=== PATIENT | female | born 1950 | race Caucasian/White ===

== ENCOUNTER → 2017-07-31 10:54 | Outpatient (CLI) | payer MEDICARE, OTHER, SELFPAY ==
[2017-07-31 11:25] LABS: Basophils % 0.2 % (0.1-2.0); Eosinophils # 0.1 K/mm3 (0.0-0.4); Eosinophils % 1.7 % (0.1-12.0); Hematocrit 43.7 % (37.0-47.0); Hemoglobin 13.7 g/dL (12.2-16.2); Lymphocytes # 1.3 K/mm3 (0.7-4.5); Lymphocytes % 28.4 K/mm3 (10-50); Mean Corpuscular HGB Conc 31.4 g/dL (31.8-35.4); Mean Corpuscular Hemoglobin 30.5 pg (27.0-31.2); Mean Corpuscular Volume 97.2 fl (81-99); Monocytes # 0.3 K/mm3 (0.1-1.0); Monocytes % 6.2 % (1.7-9.3); Neutrophils # 2.9 K/mm3 (1.8-7.8); Neutrophils % 63.5 % (37.0-80.0); Platelet Count 167 K/mm3 (142-424); Red Blood Count 4.49 M/mm3 (4.20-5.40); Red Cell Distribution Width 14.4 % (11.5-17.5); White Blood Count 4.5 K/mm3 (4.8-10.8)
[2017-07-31 11:35] LABS: Alanine Aminotransferase 27 U/L (12-78); Albumin Level 3.7 gm/dL (3.4-5.0); Albumin/Globulin Ratio 0.9 (1.1-1.8); Alkaline Phosphatase 77 U/L (46-116); Anion Gap 11.1 mEq/L (5-15); Aspartate Amino Transferase 22 U/L (15-37); Bilirubin,Total 0.4 mg/dL (0.2-1.0); Blood Urea Nitrogen 28 mg/dL (7-18); Calcium 9.4 mg/dL (8.5-10.1); Carbon Dioxide 28 mmol/L (21.0-32.0); Chloride 107 mmol/L (98-107); Chol/HDL Ratio 2.9 (1-3.5); Cholesterol 155 mg/dL (140-200); Estimated Glomerular Filt Rate 62 ml/min (>60); GFR (African American) 75 ML/MIN (>60); Globulin 4.1 gm/dl (1.3-3.2); Glucose 90 mg/dL (74-106); HDL Cholesterol 53 mg/dL (29-89); LDL Cholesterol 76 mg/dL (0-130); Potassium 5.1 mmoL/L (3.5-5.1); Sodium 141 mmol/L (136-145); Total Protein,Serum 7.8 gm/dL (6.4-8.2); Triglycerides 128 mg/dL (30-200); VLDL Cholesterol 26 mg/dL (0-40)
== END ==
PROVIDERS: Visit Provider Internal Medicine
DX: G35 Multiple sclerosis (principal); I10 Essential (primary) hypertension; E03.9 Hypothyroidism, unspecified
CPT/HCPCS: 36415; 80053; 80061; 85025

== ENCOUNTER 2017-10-09 11:00 | Outpatient (RCR) | payer MEDICARE, OTHER, SELFPAY | END 2017-10-10 11:01 | disposition home or self-care (01) | LOC: PT 11:00 | PROVIDERS: Family Provider Internal Medicine; Visit Provider Psychiatry & Neurology Neurology | DX: R26.9 Unspecified abnormalities of gait and mobility (principal); G35 Multiple sclerosis | CPT/HCPCS: 97110; 97112; 97116; 97164 ==

== ENCOUNTER → 2018-02-03 09:51 | Outpatient (CLI) | payer MEDICARE, OTHER, SELFPAY ==
[2018-02-03 10:29] LABS: Basophils % 0.2 % (0.1-2.0); Eosinophils # 0.1 K/mm3 (0.0-0.4); Hematocrit 45.3 % (37.0-47.0); Hemoglobin 14.2 g/dL (12.2-16.2); Lymphocytes # 1.3 K/mm3 (0.7-4.5); Lymphocytes % 26.7 K/mm3 (10-50); Mean Corpuscular HGB Conc 31.4 g/dL (31.8-35.4); Mean Corpuscular Hemoglobin 30.7 pg (27.0-31.2); Mean Corpuscular Volume 97.7 fl (81-99); Mean Platelet Volume 7.5 fl (7.4-10.4); Monocytes # 0.3 K/mm3 (0.1-1.0); Monocytes % 7.1 % (1.7-9.3); Neutrophils # 3.1 K/mm3 (1.8-7.8); Platelet Count 149 K/mm3 (142-424); Red Blood Count 4.64 M/mm3 (4.20-5.40); Red Cell Distribution Width 14.2 % (11.5-17.5); White Blood Count 4.8 K/mm3 (4.8-10.8)
[2018-02-03 11:42] LABS: Alanine Aminotransferase 45 U/L (12-78); Albumin Level 3.7 gm/dL (3.4-5.0); Albumin/Globulin Ratio 1.1 (1.1-1.8); Alkaline Phosphatase 76 U/L (46-116); Anion Gap 13.7 mEq/L (5-15); Aspartate Amino Transferase 42 U/L (15-37); Bilirubin,Total 0.4 mg/dL (0.2-1.0); Blood Urea Nitrogen 26 mg/dL (7-18); Calcium 9.2 mg/dL (8.5-10.1); Carbon Dioxide 26 mmol/L (21.0-32.0); Chloride 110 mmol/L (98-107); Chol/HDL Ratio 2.7 (1-3.5); Cholesterol 144 mg/dL (140-200); Creatinine,Serum 0.87 mg/dL (0.55-1.02); Estimated Glomerular Filt Rate 65 ml/min (>60); GFR (African American) 78 ML/MIN (>60); Globulin 3.5 gm/dl (1.3-3.2); Glucose 86 mg/dL (74-106); HDL Cholesterol 53 mg/dL (29-89); LDL Cholesterol 66 mg/dL (0-130); Potassium 4.7 mmoL/L (3.5-5.1); Sodium 145 mmol/L (136-145); Thyroid Stimulating Hormone 0.26 uIU/ml (0.358-3.740); Total Protein,Serum 7.2 gm/dL (6.4-8.2); Triglycerides 125 mg/dL (30-200); VLDL Cholesterol 25 mg/dL (0-40)
== END ==
PROVIDERS: PCP Internal Medicine; Visit Provider Internal Medicine
DX: I10 Essential (primary) hypertension (principal); E78.5 Hyperlipidemia, unspecified; D69.6 Thrombocytopenia, unspecified; E03.9 Hypothyroidism, unspecified
CPT/HCPCS: 36415; 80053; 80061; 84443; 85025

== ENCOUNTER → 2018-05-12 10:25 | Outpatient (CLI) | payer MEDICARE, OTHER, SELFPAY ==
[2018-05-12 12:58] LABS: Thyroid Stimulating Hormone 4.09 uIU/ml (0.358-3.740)
== END ==
PROVIDERS: Visit Provider Internal Medicine
DX: E03.9 Hypothyroidism, unspecified (principal)
CPT/HCPCS: 36415; 84443

== ENCOUNTER → 2018-08-01 11:03 | Outpatient (CLI) | payer MEDICARE, BC, SELFPAY ==
[2018-08-01 11:32] LABS: Basophils % 0.2 % (0.1-2.0); Eosinophils # 0.1 K/mm3 (0.0-0.4); Eosinophils % 0.7 % (0.1-12.0); Hematocrit 44.1 % (37.0-47.0); Hemoglobin 14.2 g/dL (12.2-16.2); Lymphocytes # 0.7 K/mm3 (0.7-4.5); Lymphocytes % 8.6 % (10-50); Mean Corpuscular HGB Conc 32.3 g/dL (31.8-35.4); Mean Corpuscular Hemoglobin 31.9 pg (27.0-31.2); Mean Corpuscular Volume 98.9 fl (81-99); Monocytes # 0.4 K/mm3 (0.1-1.0); Monocytes % 4.8 % (1.7-9.3); Neutrophils # 6.7 K/mm3 (1.8-7.8); Neutrophils % 85.8 % (37.0-80.0); Platelet Count 137 K/mm3 (142-424); Red Blood Count 4.46 M/mm3 (4.20-5.40); White Blood Count 7.8 K/mm3 (4.8-10.8)
[2018-08-01 11:36] LABS: MANUAL DIFFERENTIAL MANUAL DIFFERENTIAL (MANUAL DIFF)
[2018-08-01 12:03] LABS: Alanine Aminotransferase 28 U/L (12-78); Albumin Level 3.7 gm/dL (3.4-5.0); Alkaline Phosphatase 67 U/L (46-116); Aspartate Amino Transferase 33 U/L (15-37); Bilirubin,Total 0.4 mg/dL (0.2-1.0); Blood Urea Nitrogen 28 mg/dL (7-18); Calcium 9.1 mg/dL (8.5-10.1); Carbon Dioxide 26 mmol/L (21.0-32.0); Chloride 107 mmol/L (98-107); Creatinine,Serum 0.91 mg/dL (0.55-1.02); Estimated Glomerular Filt Rate 61 ml/min (>60); GFR (African American) 74 ML/MIN (>60); Globulin 3.6 gm/dl (1.3-3.2); Glucose 57 mg/dL (74-106); Sodium 143 mmol/L (136-145); Total Protein,Serum 7.3 gm/dL (6.4-8.2)
[2018-08-01 14:06] LABS: Lymphocytes % 11 % (10-50); Monocytes % 6 % (2-9); Neutrophils % 80 % (42-76); RBC Morphology Normal; Total Cells Counted 100
[2018-08-01 14:08] LABS: Platelet Estimate Normal
== END ==
PROVIDERS: Visit Provider Psychiatry & Neurology Neurology
DX: G35 Multiple sclerosis (principal)
CPT/HCPCS: 36415; 80053; 85007; 85025

== ENCOUNTER → 2018-08-04 08:31 | Outpatient (CLI) | payer MEDICARE, BC, SELFPAY ==
--- NOTE | 2018-08-04 08:36 | MR_ITS ---
MR head/brain wo/w con HISTORY: Multiple sclerosis, increase in falling ITS.REASON: MULTIPLE SCLEROSIS ORDERING PHYSICIAN: Ritika White PATIENT AGE: 68 years Comparison: 02/18/2017 TECHNIQUE: Standard multiplanar multiecho sequences are performed without and with gadolinium enhancement. 15 mL of ProHance given IV. FINDINGS: No midline shift, mass effect, intracranial hemorrhage, or hydrocephalus is evident. No enhancing lesions are evident. There is diffuse atrophy. There is diffuse periventricular and subcortical T2 white matter hyperintensity noted. The patient gives a history of multiple sclerosis. Some of these lesions are oriented perpendicular to the long axis of the lateral ventricles and could represent Dawsons fingers. There are no previous MRIs available for comparison. None of these areas demonstrate any contrast enhancement. There is no evidence of involvement of the corpus callosum, midbrain or brainstem. There is some increased diffusion signal in the left long radiata posteriorly with mixed signal intensity on the ADC images some showing some slight increased ADC signal and at least one area showing isointense ADC signal. The cerebellopontine angle, cerebellum, and brainstem are unremarkable. The pituitary, optic chiasm, and upper cervical cord have an unremarkable appearance. No mastoid effusion or sinus air-fluid level is evident. IMPRESSION: 1. There is diffuse periventricular and subcortical T2 white matter hyperintensities which is a nonspecific finding and could be related to diffuse periventricular ischemic gliotic change from microvascular disease or could also be related to white matter changes from a multiple sclerosis or a combination there of. There are few lesions that could be due to Dawsons fingers. No corpus callosum abnormalities. 2. There are some nonspecific areas in the periventricular white matter on the left of slight increased diffusion signal without enhancement isointense to slightly hyperintense on the ADC images and may be due to subacute ischemic changes.. 3. No enhancing lesions
== END ==
PROVIDERS: PCP Internal Medicine; Visit Provider Psychiatry & Neurology Neurology
DX: G35 Multiple sclerosis (principal)
CPT/HCPCS: 70553; A9576

== ENCOUNTER → 2018-08-08 09:37 | Outpatient (CLI) | payer MEDICARE, BC, SELFPAY ==
[2018-08-08 10:14] LABS: Basophils % 0.4 % (0.1-2.0); Eosinophils # 0.1 K/mm3 (0.0-0.4); Eosinophils % 1.2 % (0.1-12.0); Hematocrit 40.5 % (37.0-47.0); Hemoglobin 13.2 g/dL (12.2-16.2); Lymphocytes # 1.1 K/mm3 (0.7-4.5); Lymphocytes % 25.5 % (10-50); Mean Corpuscular HGB Conc 32.7 g/dL (31.8-35.4); Mean Corpuscular Hemoglobin 32.1 pg (27.0-31.2); Mean Corpuscular Volume 98.2 fl (81-99); Mean Platelet Volume 7.7 fl (7.4-10.4); Monocytes # 0.3 K/mm3 (0.1-1.0); Monocytes % 6.6 % (1.7-9.3); Neutrophils # 2.8 K/mm3 (1.8-7.8); Neutrophils % 66.3 % (37.0-80.0); Platelet Count 139 K/mm3 (142-424); Red Blood Count 4.12 M/mm3 (4.20-5.40); White Blood Count 4.3 K/mm3 (4.8-10.8)
[2018-08-08 12:49] LABS: Alanine Aminotransferase 25 U/L (12-78); Albumin Level 3.6 gm/dL (3.4-5.0); Albumin/Globulin Ratio 1.1 (1.1-1.8); Alkaline Phosphatase 60 U/L (46-116); Anion Gap 15.1 mEq/L (5-15); Aspartate Amino Transferase 23 U/L (15-37); Bilirubin,Total 0.5 mg/dL (0.2-1.0); Blood Urea Nitrogen 27 mg/dL (7-18); Carbon Dioxide 25 mmol/L (21.0-32.0); Chloride 108 mmol/L (98-107); Chol/HDL Ratio 2.7 (1-3.5); Cholesterol 145 mg/dL (140-200); Estimated Glomerular Filt Rate 62 ml/min (>60); GFR (African American) 75 ML/MIN (>60); Globulin 3.2 gm/dl (1.3-3.2); Glucose 77 mg/dL (74-106); HDL Cholesterol 53 mg/dL (29-89); LDL Cholesterol 70 mg/dL (0-130); Potassium 4.1 mmoL/L (3.5-5.1); Sodium 144 mmol/L (136-145); Thyroid Stimulating Hormone 4.07 uIU/ml (0.358-3.740); Total Protein,Serum 6.8 gm/dL (6.4-8.2); Triglycerides 110 mg/dL (30-200); VLDL Cholesterol 22 mg/dL (0-40)
== END ==
PROVIDERS: Visit Provider Internal Medicine
DX: E03.9 Hypothyroidism, unspecified (principal); I95.1 Orthostatic hypotension; I10 Essential (primary) hypertension; G35 Multiple sclerosis
CPT/HCPCS: 36415; 80053; 80061; 84443; 85025

== ENCOUNTER → 2018-11-07 10:50 | Outpatient (CLI) | payer MEDICARE, BC, SELFPAY ==
[2018-11-07 19:40] LABS: Thyroid Stimulating Hormone 0.41 uIU/ml (0.358-3.740)
== END ==
PROVIDERS: Visit Provider Internal Medicine
DX: E03.9 Hypothyroidism, unspecified (principal); I10 Essential (primary) hypertension
CPT/HCPCS: 36415; 84443

== ENCOUNTER 2019-01-21 10:00 | Outpatient (RCR) | payer MEDICARE, BC, SELFPAY | END 2019-01-21 10:05 | disposition home or self-care (01) | LOC: PT 10:00 | PROVIDERS: Visit Provider Internal Medicine | DX: M62.81 Muscle weakness (generalized) (principal); M25.561 Pain in right knee | CPT/HCPCS: 97110; 97112; 97163; 97164 ==

== ENCOUNTER → 2019-02-06 09:31 | Outpatient (CLI) | payer MEDICARE, BC, SELFPAY ==
[2019-02-06 10:02] LABS: Basophils % 0.3 % (0.1-2.0); Eosinophils # 0.1 K/mm3 (0.0-0.4); Eosinophils % 1.1 % (0.1-12.0); Hematocrit 44.2 % (37.0-47.0); Hemoglobin 12.9 g/dL (12.2-16.2); Lymphocytes # 1.2 K/mm3 (0.7-4.5); Lymphocytes % 30.1 % (10-50); Mean Corpuscular HGB Conc 29.1 g/dL (31.8-35.4); Mean Corpuscular Volume 99.7 fl (81-99); Mean Platelet Volume 8.4 fl (7.4-10.4); Monocytes # 0.3 K/mm3 (0.1-1.0); Monocytes % 8.1 % (1.7-9.3); Neutrophils # 2.4 K/mm3 (1.8-7.8); Neutrophils % 60.4 % (37.0-80.0); Platelet Count 164 K/mm3 (142-424); Red Blood Count 4.43 M/mm3 (4.20-5.40)
[2019-02-06 11:50] LABS: Alanine Aminotransferase 18 U/L (12-78); Albumin Level 3.6 gm/dL (3.4-5.0); Albumin/Globulin Ratio 1.1 (1.1-1.8); Alkaline Phosphatase 77 U/L (46-116); Anion Gap 13.4 mEq/L (5-15); Aspartate Amino Transferase 20 U/L (15-37); Bilirubin,Total 0.4 mg/dL (0.2-1.0); Blood Urea Nitrogen 26 mg/dL (7-18); Calcium 9.3 mg/dL (8.5-10.1); Carbon Dioxide 26 mmol/L (21.0-32.0); Chloride 108 mmol/L (98-107); Creatinine,Serum 0.77 mg/dL (0.55-1.02); Estimated Glomerular Filt Rate 74 ml/min (>60); GFR (African American) 90 ML/MIN (>60); Globulin 3.4 gm/dl (1.3-3.2); Glucose 80 mg/dL (74-106); Potassium 4.4 mmoL/L (3.5-5.1); Sodium 143 mmol/L (136-145); Thyroid Stimulating Hormone 0.16 uIU/ml (0.358-3.740)
== END ==
PROVIDERS: Visit Provider Internal Medicine
DX: I10 Essential (primary) hypertension (principal); E78.5 Hyperlipidemia, unspecified; G35 Multiple sclerosis
CPT/HCPCS: 36415; 80053; 84443; 85025

== ENCOUNTER 2019-05-09 15:59 | Observation (INO) ==
[2019-05-09 16:44] LABS: Basophils % 0.4 % (0.1-2.0); Eosinophils # 0.2 K/mm3 (0.0-0.4); Eosinophils % 2.4 % (0.1-12.0); Hematocrit 41.9 % (37.0-47.0); Hemoglobin 12.9 g/dL (12.2-16.2); Lymphocytes # 1.9 K/mm3 (0.7-4.5); Lymphocytes % 20.7 % (10-50); Mean Corpuscular HGB Conc 30.7 g/dL (31.8-35.4); Mean Corpuscular Volume 98.2 fl (81-99); Mean Platelet Volume 8.8 fl (7.4-10.4); Monocytes # 0.6 K/mm3 (0.1-1.0); Neutrophils # 6.5 K/mm3 (1.8-7.8); Neutrophils % 70.4 % (37.0-80.0); Platelet Count 184 K/mm3 (142-424); Red Blood Count 4.26 M/mm3 (4.20-5.40); Red Cell Distribution Width 15.3 % (11.5-17.5); White Blood Count 9.2 K/mm3 (4.8-10.8)
[2019-05-09 17:01] LABS: Albumin Level 3.2 gm/dL (3.4-5.0); Albumin/Globulin Ratio 0.9 (1.1-1.8); Anion Gap 12.8 mEq/L (5-15); Bilirubin,Total 0.4 mg/dL (0.2-1.0); Calcium 8.4 mg/dL (8.5-10.1); Globulin 3.7 gm/dl (1.3-3.2); Total Protein,Serum 6.9 gm/dL (6.4-8.2)
--- NOTE | 2019-05-09 17:06 | Emergency Department Note ---
ED Disposition Clinical Impression: Congestive heart failure Disposition: Xfer Short-Term Hosp Condition on Discharge: Serious - Critical Care Critical Care Time: No Attestation: On 05/09/19, the high probability of a clinically significant, sudden or life threatening deterioration of the following system(s) required my full and direct attention, intervention and personal management. The time I documented below is in addition to time spent performing reported procedures but includes the following listed in this critical care notation. Medical Decision Making - Medical Records Medical records reviewed: Yes: I reviewed the patient's medical records. - Emmanuel Inquiry Pt receiving controlled substance: No Vital Signs: 05/09/19 16:22 05/09/19 16:32 Temperature 98.7 F Temperature Source Oral Pulse Rate [Right Brachial] 84 87 Respiratory Rate 19 Blood Pressure [Right Arm] 113/47 L 158/94 H Blood Pressure Mean [Right Arm] 69 115 Blood Pressure Source [Right Arm] Automatic Cuff Automatic Cuff Blood Pressure Position [Right Arm] Sitting Sitting 02 Sat by Pulse Oximetry 96 94 L Oxygen Delivery Method Room Air - Lab Data Lab results reviewed: Yes: I reviewed the patient's lab results. Lab Results 05/09/19 16:33: WBC 9.2, RBC 4.26, Hgb 12.9, Hct 41.9, MCV 98.2, MCH 30.2, MCHC 30.7 L, RDW 15.3, Plt Count 184, MPV 8.8, Neut % (Auto) 70.4, Lymph % (Auto) 20.7, [place] % (Auto) 6.0, Eos % (Auto) 2.4, Baso % (Auto) 0.4, Neut # (Auto) 6.5, Lymph # (Auto) 1.9, [place] # (Auto) 0.6, Eos # (Auto) 0.2, Baso # (Auto) 0.0 05/09/19 16:33: Sodium 144, Potassium 3.8, Chloride 109 H, Carbon Dioxide 26, Anion Gap 12.8, BUN 27 H, Creatinine 0.94, Estimated Creat Clear 63, Estimated GFR 59, Est GFR ( Amer) 71, Glucose 109 H, Calcium 8.4 L, Total Bilirubin 0.4, AST 29, ALT 28, Alkaline Phosphatase 81, Troponin I 0.25 H, Total Protein 6.9, Albumin 3.2 L, Globulin 3.7 H, Albumin/Globulin Ratio 0.9 L 05/09/19 16:33: Lactate 0.9 05/09/19 16:33: B-Natriuretic Peptide 1350 H Result diagrams: 05/09/19 16:33 05/09/19 16:33 Orders (Tests/Meds): ED MEDICATIONS Discontinued Medications Generic Name Dose Route Start Last Admin Trade Name Maurisio PRN Reason Stop Dose Admin Aspirin 324 mg 05/09/19 17:05 05/09/19 17:23 Aspirin 81mg Chewable Tablet PO 05/09/19 17:06 324 mg ONCE ONE Administration Furosemide 40 mg 05/09/19 17:32 05/09/19 17:34 Lasix 40mg/4ml Vial IV 05/09/19 17:33 40 mg ONCE ONE Administration ORDERS Category Date Time Status XR chest 2V Stat Exams 05/09/19 16:32 Taken T4 (Thyroxine) Stat Lab 05/09/19 16:44 Ordered Thyroid Stimulating Hormone Stat Lab 05/09/19 16:44 Ordered Troponin I Q3H Lab 05/09/19 19:45 Ordered Troponin I Q3H Lab 05/09/19 22:45 Ordered Blood Culture Stat Micro 05/09/19 16:33 Received - Radiology Data #1 Image(s): Chest Image Reviewed: Yes I reviewed the patient's radiology image Preliminary Findings: Abnormal (Increased lung markings probable mild pulmonary edema.) - ECG Data Tracing #1 I reviewed this ECG and interpreted as documented below: Normal sinus rhythm with sinus arrhythmia and a ventricular rate of 77 bpm. ECG initial impression date: 05/09/19 ECG initial impression time: 16:30 Normal Sinus Rhythm: Yes - Physician Consults Physician Consulted: Dr. Duque for cardiology, Dr. Smith for admission. Time: 17:30 Reason -: Admission, Pt condition Comment/Response: Mildly elevated troponin and elevated beta natruretic peptide reported to Dr. Duque and Dr. Singh. Patient will be admitted for congestive heart failure. General Adult HPI - General Chief complaint: Shortness of Breath/Dyspnea Stated complaint: SOB Time Seen by Provider: 05/09/19 16:25 Mode of Arrival: Family Vehicle Source of Information: Patient Limitations: No Limitations Description of Symptoms (Recalled from ER Triage Doc. by RN): soa with exertion, soa with laying down - History of Present Illness HPI narrative: 68-year old female presents to the emergency department with fatigue and shortness of breath for the past 3 days worse over the past 24 hours. Onset (ago): day(s) (3) Severity: moderate Consistency: constant Relieving factors: none Exacerbating factors: none Associated symptoms: malaise, weakness Treatments prior to arrival: none - Related Data Home Medications Medication Instructions Recorded Confirmed Acetaminophen/Diphenhydramine 1 each PO HS 05/09/19 05/09/19 [Tylenol Pm Ex-Strength Caplet] Aspirin [Aspirin 81mg EC Tab] 81 mg PO DAILY 05/09/19 05/09/19 Atorvastatin Calcium [Atorvastatin 20 mg PO DAILY 05/09/19 05/09/19 20mg Tab] Cyanocobalamin (Vitamin B-12) 1,000 mcg PO DAILY 05/09/19 05/09/19 [Vitamin B-12] Gabapentin 600 mg PO BID 05/09/19 05/09/19 Levothyroxine Sodium [Synthroid 50 mcg PO DAILY 05/09/19 05/09/19 50mcg (0.05mg) tab] Metoprolol Tartrate [Lopressor 12.5 mg PO BID 05/09/19 05/09/19 25mg tablet] Potassium Chloride 20 meq PO DAILY 05/09/19 05/09/19 Sertraline HCl [Zoloft 100mg 100 mg PO DAILY 05/09/19 05/09/19 tablet] Spironolactone [Spironolactone 25 mg PO DIRECTED 05/09/19 05/09/19 25mg Tablet] diphenhydrAMINE HCL [Benadryl 25mg 25 mg PO DAILY 05/09/19 05/09/19 Capsule] Allergies Allergy/AdvReac Type Severity Reaction Status Date / Time No Known Allergies Allergy Unverified 04/30/17 14:39 [facility] History - Hepatitis A Screen Drug use history?: No High risk sexual behaviors?: No History of sexually transmitted infection?: No Currently employed?: No Childcare worker?: No Do you have indoor plumbing?: Yes Do you have electricity?: Yes Attestation statement:: This patient has been screened for Hepatitis A risk factors. I have reviewed the patient's past medical history: Yes ROS Obtained: Yes Systems reviewed as appropriate & no additional complaints - Constitutional Constitutional: Reports malaise, Reports weakness - Eyes Eyes: Reports system reviewed and no additional complaints, except as docu - ENT Ears, Nose, Mouth, and Throat: Reports system reviewed and no additional complaints, except as docu - Cardiovascular Cardiovascular: Reports dyspnea, Reports shortness of breath when lying down - Respiratory Respiratory: Yes dyspnea - Gastrointestinal Gastrointestingal: Reports: system reviewed and no additional complaints, except as docu - Genitourinary Female Genitourinary: Reports system reviewed and no additional complaints, except as docu - Musculoskeletal Musculoskeletal: Reports system reviewed and no additional complaints, except as docu - Integumentary/Breasts Skin/Breast: Reports system reviewed and no additional complaints, except as docu - Neurologic Neurologic: Reports system reviewed and no additional complaints, except as docu - Endocrine Endocrine: Reports system reviewed and no additional complaints, except as docu - Hematologic/Lymphatic Henatologic/Lymphatic: Reports system reviewed and no additional complaints, except as docu - Allergic/Immunologic Allergic/Immunologic: Reports system reviewed and no additional complaints, except as docu Physical Exam - General General appearance: alert, in no apparent distress - Head Head exam: atraumatic, normocephalic, normal inspection - Eye Eye exam: Present: normal appearance, PERRL, EOMI - ENT ENT exam: Present: normal exam, normal oropharynx, mucous membranes moist, johny l external ear exam - Neck Neck exam: Present: normal inspection, full ROM, trachea midline. Absent: meningismus, lymphadenopathy - Chest Chest inspection: Present: normal inspection, symmetric chest wall rise. Absent: tenderness - Respiratory Respiratory exam: Present: normal lung sounds bilaterally. Absent: respiratory distress - Cardiovascular Cardiovascular exam: Present: regular rate, normal rhythm. Absent: JVD - Abdominal Exam Abdominal exam: Present: soft, normal bowel sounds. Absent: distention, tenderness, guarding - Extremities Exam Extremities exam: Present: normal inspection, full ROM, normal capillary refill. Absent: calf tenderness - Back Exam Back exam: Present: normal inspection. Absent: tenderness - Neurological Exam Neurological exam: Present: alert, oriented X3, CN II-XII intact, normal gait. Absent: motor sensory deficit - Psychiatric Psychiatric exam: Present: normal affect, normal mood - Skin Skin exam: Present: warm, dry, intact, normal color
[2019-05-09 18:06] LABS: Thyroid Stimulating Hormone 5.81 uIU/ml (0.358-3.740)
[2019-05-10 07:03] LABS: Basophils % 0.3 % (0.1-2.0); Eosinophils # 0.2 K/mm3 (0.0-0.4); Eosinophils % 2.2 % (0.1-12.0); Hematocrit 39.8 % (37.0-47.0); Hemoglobin 12.4 g/dL (12.2-16.2); Lymphocytes # 1.6 K/mm3 (0.7-4.5); Lymphocytes % 20.6 % (10-50); Mean Corpuscular HGB Conc 31.3 g/dL (31.8-35.4); Mean Corpuscular Volume 96.2 fl (81-99); Mean Platelet Volume 8.4 fl (7.4-10.4); Monocytes # 0.5 K/mm3 (0.1-1.0); Monocytes % 6.3 % (1.7-9.3); Neutrophils # 5.4 K/mm3 (1.8-7.8); Neutrophils % 70.5 % (37.0-80.0); Platelet Count 179 K/mm3 (142-424); Red Blood Count 4.14 M/mm3 (4.20-5.40); Red Cell Distribution Width 15.2 % (11.5-17.5); White Blood Count 7.7 K/mm3 (4.8-10.8)
[2019-05-10 07:16] LABS: INR 1.06 (0.9-1.1)
[2019-05-10 07:20] LABS: Albumin Level 3.2 gm/dL (3.4-5.0); Albumin/Globulin Ratio 0.9 (1.1-1.8); Anion Gap 13.2 mEq/L (5-15); Bilirubin,Total 0.7 mg/dL (0.2-1.0); Calcium 8.8 mg/dL (8.5-10.1); Chol/HDL Ratio 2.7 (1-3.5); Globulin 3.5 gm/dl (1.3-3.2); Phosphorous 3.7 mg/dL (2.4-4.9); Total Protein,Serum 6.7 gm/dL (6.4-8.2)
--- NOTE | 2019-05-10 11:25 | Pharmacy Consult Notes ---
[facility] Pharmacy VTE Monitoring - Patient Demographics Admission date: 05/09/19 Report Date: 05/10/19 Time: 11:25 Allergies/Adverse Reactions: Patient Allergies No Known Allergies Allergy (Unverified 04/30/17 14:39) Height: 1.6 m Weight: 69.626 kg Patient Problems: Current Active Problems Congestive heart failure (Acute) - VTE Risk Labs: VTE Related Lab Results Hgb 12.4 g/dL (12.2-16.2) 05/10/19 06:50 Hct 39.8 % (37.0-47.0) 05/10/19 06:50 Plt Count 179 K/mm3 (142-424) 05/10/19 06:50 PT 11.0 seconds (9.4-11.8) 05/10/19 06:50 INR 1.06 (0.9-1.1) 05/10/19 06:50 BUN 23 mg/dL (7-18) H 05/10/19 06:50 Creatinine 0.88 mg/dL (0.55-1.02) 05/10/19 06:50 Estimated Creat Clear 58 mL/min (50-200) 05/10/19 06:50 Was VTE Risk Assessment Performed: Yes VTE Score: 1 VTE Risk Level: Very Low Risk - Prophylaxis VTE Prophylaxis Ordered?: Yes Types of VTE Prophylaxis: TEDS Knee High Location of Applied Device: Bilateral Lower Extremeties - VTE Diagnosis Confirmed Treatment or plan recommended: Continue Current Treatment
--- NOTE | 2019-05-10 11:48 | H&P/Discharge Summary ---
General - General Admission date:: 05/09/19 Discharge date: 05/10/19 *Admission Date: 05/09/19 *Chief complaint: Shortness of breath *History of present illness: Ms. Regan is a 68-year-old female who presented to the ER due to 3 days of worsening shortness of breath. Denies any fevers, nausea, vomiting, chest pain. Stated she was more short of breath and dyspneic with exertion, as well as reported symptoms of orthopnea.. Had a nonproductive cough. Was concerned she might have a pneumonia or heart problem. On presentation to the ER work-up was significant for elevated BNP, EKG with no ST elevation or conduction abnormalities, slight elevation in troponin that was trended and found stable overnight, finding of edema on exam, and chest x-ray with pulmonary vascular congestion and cephalization. She was admitted for management of CHF exacerbation and diuresis. Had good response with initial dose of diuretic and by the time I saw her this morning stated she was feeling significantly better than on presentation. On interview this morning she was pleasant and feeling well enough to go home as she was requesting to go home. Family at bedside on interview this morning. [facility] History I have reviewed the patient's past medical history: Yes Medical History: Denies:: Cancer, Diabetes Mellitus Type 1, Diabetes Mellitus Type 2, MRSA *Have you ever received a pneumonia vaccine?: Yes *Have you received a flu vaccine this season?: Yes Amputation: No Fractures: No - *Social History Educational Level: Attended College Smoking Status: Former smoker #Yrs smoked (if former smoker): 30 Smoking End Date: 2013 Alcohol Intake: never *Occupational Status:: retired Housing: house Household Members: spouse *Travel in the last 8 weeks: None Family Hx:: Unable to obtain Review of Systems - Review of Systems Review of systems:: pertinent systems reviewed and negative unless documented below - *Neurologic Reports weakness Exam Vital signs and Labs for Last 24 Hours: Temp Pulse Resp BP Pulse Ox 98.2 F 64 17 127/90 93 L 05/10/19 08:00 05/10/19 08:00 05/10/19 08:00 05/10/19 08:00 05/10/19 08:00 Laboratory Results - last 24 hr 05/09/19 16:33: WBC 9.2, RBC 4.26, Hgb 12.9, Hct 41.9, MCV 98.2, MCH 30.2, MCHC 30.7 L, RDW 15.3, Plt Count 184, MPV 8.8, Neut % (Auto) 70.4, Lymph % (Auto) 20.7, [place] % (Auto) 6.0, Eos % (Auto) 2.4, Baso % (Auto) 0.4, Neut # (Auto) 6.5, Lymph # (Auto) 1.9, [place] # (Auto) 0.6, Eos # (Auto) 0.2, Baso # (Auto) 0.0 05/09/19 16:33: Sodium 144, Potassium 3.8, Chloride 109 H, Carbon Dioxide 26, Anion Gap 12.8, BUN 27 H, Creatinine 0.94, Estimated Creat Clear 63, Estimated GFR 59, Est GFR ( Amer) 71, Glucose 109 H, Calcium 8.4 L, Total Bilirubin 0.4, AST 29, ALT 28, Alkaline Phosphatase 81, Troponin I 0.25 H, Total Protein 6.9, Albumin 3.2 L, Globulin 3.7 H, Albumin/Globulin Ratio 0.9 L 05/09/19 16:33: Lactate 0.9 05/09/19 16:33: B-Natriuretic Peptide 1350 H 05/09/19 16:33: TSH 5.81 H D, Thyroxine (T4) 9.0 05/09/19 20:45: Troponin I 0.40 H 05/10/19 03:20: Troponin I 0.23 H 05/10/19 06:50: WBC 7.7, RBC 4.14 L, Hgb 12.4, Hct 39.8, MCV 96.2, MCH 30.1, MCHC 31.3 L, RDW 15.2, Plt Count 179, MPV 8.4, Neut % (Auto) 70.5, Lymph % (Auto) 20.6, [place] % (Auto) 6.3, Eos % (Auto) 2.2, Baso % (Auto) 0.3, Neut # ( Auto) 5.4, Lymph # (Auto) 1.6, [place] # (Auto) 0.5, Eos # (Auto) 0.2, Baso # (Auto) 0.0 05/10/19 06:50: PT 11.0, INR 1.06 05/10/19 06:50: Sodium 144, Potassium 3.2 L, Chloride 107, Carbon Dioxide 27, Anion Gap 13.2, BUN 23 H, Creatinine 0.88, Estimated Creat Clear 58, Estimated GFR 64, Est GFR ( Amer) 77, Glucose 80 D, Calcium 8.8, Phosphorus 3.7, Magnesium 1.7, Total Bilirubin 0.7, AST 24, ALT 25, Alkaline Phosphatase 77, Total Protein 6.7, Albumin 3.2 L, Globulin 3.5 H, Albumin/Globulin Ratio 0.9 L, Triglycerides 110, Cholesterol 126 L, LDL Cholesterol 57, VLDL Cholesterol 22, HDL Cholesterol 47, Cholesterol/HDL Ratio 2.7 I & O for Last 24 hours: Intake & Output 05/07/19 05/08/19 05/09/19 05/10/19 23:59 23:59 23:59 23:59 Output Total 300 / 300 Balance -300 / -300 Weight 69.088 kg 69.626 kg - Constitutional no acute distress, average body habitus - *Routine HEENT Exam Head: Present: normocephalic Eye: Present: EOMI, PERRL ENT: Present: mucous membranes moist - *Routine Neck Exam Present: supple. Absent: lymphadenopathy - *Routine Respiratory Exam Present: crackles (Fine crackles posterior lung base more prominent on the left than the right. No rhonchi or wheeze) Comments: Good air movement bilaterally, your lung welsh clear - *Routine Cardiovascular Exam Present: RRR - *Routine Abdominal Exam Present: soft, normoactive bowel sounds. Absent: tenderness - *Routine Extremities Exam Present: edema (Trace). Absent: cyanosis, clubbing - *Routine Skin Exam Present: warm. Absent: rash - *Routine Neurological Exam Present: alert, oriented X3 Hospital Course Hospital Course: Monitor overnight on telemetry. Trend troponins with improvement throughout diuresis. Stable telemetry. Normal EKG. Significant improvement with diu resis. Responded well to treatment for CHF exacerbation. Increase patient's spironolactone to half tablet daily and instructed her to follow-up with her primary care doctor this week for further management and adjustment of medications. Additionally recommended she follow-up with cardiology in the next 2 weeks for further assessment and management. Medically stable for discharge home. Tolerating p.o. intake after initiation of diet this morning. Patient stated being comfortable with the plan of discharge home on increased diuresis with spironolactone. No acute needs at this time. Results Labs on day of discharge: Labs from last 24 hours 05/10/19 05/10/19 05/10/19 06:50 06:50 06:50 WBC 7.7 RBC 4.14 L Hgb 12.4 Hct 39.8 MCV 96.2 MCH 30.1 MCHC 31.3 L RDW 15.2 Plt Count 179 MPV 8.4 Neut % (Auto) 70.5 Lymph % (Auto) 20.6 [place] % (Auto) 6.3 Eos % (Auto) 2.2 Baso % (Auto) 0.3 Neut # (Auto) 5.4 Lymph # (Auto) 1.6 [place] # (Auto) 0.5 Eos # (Auto) 0.2 Baso # (Auto) 0.0 PT 11.0 INR 1.06 Sodium 144 Potassium 3.2 L Chloride 107 Carbon Dioxide 27 Anion Gap 13.2 BUN 23 H Creatinine 0.88 Estimated Creat Clear 58 Estimated GFR 64 Est GFR ( Amer) 77 Glucose 80 D Lactate Calcium 8.8 Phosphorus 3.7 Magnesium 1.7 Total Bilirubin 0.7 AST 24 ALT 25 Alkaline Phosphatase 77 Troponin I B-Natriuretic Peptide Total Protein 6.7 Albumin 3.2 L Globulin 3.5 H Albumin/Globulin Ratio 0.9 L Triglycerides 110 Cholesterol 126 L LDL Cholesterol 57 VLDL Cholesterol 22 HDL Cholesterol 47 Cholesterol/HDL Ratio 2.7 TSH Thyroxine (T4) 05/10/19 05/09/19 05/09/19 03:20 20:45 16:33 WBC RBC Hgb Hct MCV MCH MCHC RDW Plt Count MPV Neut % (Auto) Lymph % (Auto) [place] % (Auto) Eos % (Auto) Baso % (Auto) Neut # (Auto) Lymph # (Auto) [place] # (Auto) Eos # (Auto) Baso # (Auto) PT INR Sodium Potassium Chloride Carbon Dioxide Anion Gap BUN Creatinine Estimated Creat Clear Estimated GFR Est GFR ( Amer) Glucose Lactate Calcium Phosphorus Magnesium Total Bilirubin AST ALT Alkaline Phosphatase Troponin I 0.23 H 0.40 H B-Natriuretic Peptide Total Protein Albumin Globulin Albumin/Globulin Ratio Triglycerides Cholesterol LDL Cholesterol VLDL Cholesterol HDL Cholesterol Cholesterol/HDL Ratio TSH 5.81 H D Thyroxine (T4) 9.0 1205/09/19 05/09/19 16:33 16:33 16:33 WBC RBC Hgb Hct MCV MCH MCHC RDW Plt Count MPV Neut % (Auto) Lymph % (Auto) [place] % (Auto) Eos % (Auto) Baso % (Auto) Neut # (Auto) Lymph # (Auto) [place] # (Auto) Eos # (Auto) Baso # (Auto) PT INR Sodium 144 Potassium 3.8 Chloride 109 H Carbon Dioxide 26 Anion Gap 12.8 BUN 27 H Creatinine 0.94 Estimated Creat Clear 63 Estimated GFR 59 Est GFR ( Amer) 71 Glucose 109 H Lactate 0.9 Calcium 8.4 L Phosphorus Magnesium Total Bilirubin 0.4 AST 29 ALT 28 Alkaline Phosphatase 81 Troponin I 0.25 H B-Natriuretic Peptide 1350 H Total Protein 6.9 Albumin 3.2 L Globulin 3.7 H Albumin/Globulin Ratio 0.9 L Triglycerides Cholesterol LDL Cholesterol VLDL Cholesterol HDL Cholesterol Cholesterol/HDL Ratio TSH Thyroxine (T4) 05/09/19 16:33 WBC 9.2 RBC 4.26 Hgb 12.9 Hct 41.9 MCV 98.2 MCH 30.2 MCHC 30.7 L RDW 15.3 Plt Count 184 MPV 8.8 Neut % (Auto) 70.4 Lymph % (Auto) 20.7 [place] % (Auto) 6.0 Eos % (Auto) 2.4 Baso % (Auto) 0.4 Neut # (Auto) 6.5 Lymph # (Auto) 1.9 [place] # (Auto) 0.6 Eos # (Auto) 0.2 Baso # (Auto) 0.0 PT INR Sodium Potassium Chloride Carbon Dioxide Anion Gap BUN Creatinine Estimated Creat Clear Estimated GFR Est GFR ( Amer) Glucose Lactate Calcium Phosphorus Magnesium Total Bilirubin AST ALT Alkaline Phosphatase Troponin I B-Natriuretic Peptide Total Protein Albumin Globulin Albumin/Globulin Ratio Triglycerides Cholesterol LDL Cholesterol VLDL Cholesterol HDL Cholesterol Cholesterol/HDL Ratio TSH Thyroxine (T4) DS: Diagnosis - Discharge Diagnosis (1) NSTEMI (non-ST elevated myocardial infarction) Status: Acute Problem details: Type II, supply demand mismatch with volume overload in the setting of CHF exacerbation. Improved with diuresis. Plan to follow-up with outpatient cardiology (2) Congestive heart failure Status: Acute (3) Hypokalemia Status: Acute Problem details: Resume home potassium supplementation and repeat labs by PCP Discharge Plan - Patient Discharge Instructions ACTIVITY: Continue current activity DIET: low fat, low cholesterol, low salt diet Patient Instructions: Heart Failure, DI for Heart Failure - Follow up Plan Follow up with: Suman Bell [Primary Care Provider] - Nolan Stewart MD [Staff Physician] - Disposition: Home, Self-Senior Care Medications: Home Medications Medication Instructions Recorded Confirmed Type Acetaminophen/Diphenhydramine 1 each PO HS 05/09/19 05/09/19 History [Tylenol Pm Ex-Strength Caplet] Aspirin [Aspirin 81mg EC Tab] 81 mg PO DAILY 05/09/19 05/09/19 History Atorvastatin Calcium [Atorvastatin 20 mg PO DAILY 05/09/19 05/09/19 History 20mg Tab] Cyanocobalamin (Vitamin B-12) 1,000 mcg PO DAILY 05/09/19 05/09/19 History [Vitamin B-12] Gabapentin 600 mg PO BID 05/09/19 05/09/19 History Levothyroxine Sodium [Synthroid 50 mcg PO DAILY 05/09/19 05/09/19 History 50mcg (0.05mg) tab] Metoprolol Tartrate [Lopressor 12.5 mg PO BID 05/09/19 05/09/19 History 25mg tablet] Potassium Chloride 20 meq PO DAILY 05/09/19 05/09/19 History Sertraline HCl [Zoloft 100mg 100 mg PO DAILY 05/09/19 05/09/19 History tablet] diphenhydrAMINE HCL [Benadryl 25mg 25 mg PO DAILY 05/09/19 05/09/19 History Capsule] Spironolactone [Spironolactone 12.5 mg PO DAILY 30 Days #30 tab 05/10/19 Rx 25mg Tablet] Prescriptions/Medication Reconciliation: Continued Metoprolol Tartrate [Lopressor 25mg tablet] 12.5 mg PO BID Aspirin [Aspirin 81mg EC Tab] 81 mg PO DAILY Sertraline HCl [Zoloft 100mg tablet] 100 mg PO DAILY Potassium Chloride 20 meq PO DAILY Levothyroxine Sodium [Synthroid 50mcg (0.05mg) tab] 50 mcg PO DAILY Gabapentin 600 mg PO BID diphenhydrAMINE HCL [Benadryl 25mg Capsule] 25 mg PO DAILY Cyanocobalamin (Vitamin B-12) [Vitamin B-12] 1,000 mcg PO DAILY Atorvastatin Calcium [Atorvastatin 20mg Tab] 20 mg PO DAILY Acetaminophen/Diphenhydramine [Tylenol Pm Ex-Strength Caplet] 1 each PO HS Changed Spironolactone [Spironolactone 25mg Tablet] 12.5 mg PO DAILY 30 Days #30 tab - Problem Reconciliation Problems Reviewed?: Yes
--- NOTE | 2019-05-15 08:10 | Electrocardiograph Report ---
APPROVED REPORT Exam: Resting ECG HR:77 bpm ECG Measurements Heart Rate 77 AXES NE 130 P 77 QRSd 72 QRS 90 QT 352 T31 QTc 398 <Conclusion> Normal sinus rhythm with sinus arrhythmia Possible Left atrial enlargement Rightward axis Septal infarct, age undetermined Abnormal ECG Electronically signed by : Jeison Cullen, 05/15/2019 08:10:34
== END 2019-05-10 12:42 | disposition home or self-care (01) ==
LOC: ER 15:59 → 2ND 15:59
PROVIDERS: ADMIT Internal Medicine Adolescent Medicine; ATTEND Internal Medicine Adolescent Medicine
CPT/HCPCS: 36415; 71020; 71046; 80053; 80061; 83605; 83735; 83880; 84100; 84436; 84443; 84484; 85025; 85610; 87040; 93005; 96374; 99284; G0378

== ENCOUNTER → 2019-05-20 10:32 | Outpatient (CLI) | payer MEDICARE, BC, SELFPAY ==
[2019-05-20 16:33] LABS: Anion Gap 12.1 mEq/L (5-15); Blood Urea Nitrogen 24 mg/dL (7-18); Calcium 8.4 mg/dL (8.5-10.1); Carbon Dioxide 26 mmol/L (21.0-32.0); Chloride 109 mmol/L (98-107); Creatinine,Serum 0.85 mg/dL (0.55-1.02); Estimated Glomerular Filt Rate 66 ml/min (>60); GFR (African American) 80 ML/MIN (>60); Glucose 68 mg/dL (74-106); Potassium 4.1 mmoL/L (3.5-5.1); Sodium 143 mmol/L (136-145)
== END ==
PROVIDERS: Visit Provider Internal Medicine
DX: I50.9 Heart failure, unspecified (principal)
CPT/HCPCS: 36415; 80048

== ENCOUNTER → 2019-05-28 11:00 | Outpatient (CLI) | payer MEDICARE, BC, SELFPAY | PROVIDERS: PCP Internal Medicine; Visit Provider Internal Medicine | DX: R06.00 Dyspnea, unspecified (principal); I21.4 Non-ST elevation (NSTEMI) myocardial infarction; I20.8 Other forms of angina pectoris; R00.1 Bradycardia, unspecified; R94.31 Abnormal electrocardiogram [ECG] [EKG]; R79.89 Other specified abnormal findings of blood chemistry; I50.9 Heart failure, unspecified; Z87.891 Personal history of nicotine dependence | CPT/HCPCS: 94060 ==

== ENCOUNTER → 2019-06-10 10:39 | Outpatient (CLI) | payer MEDICARE, BC, SELFPAY ==
[2019-06-10 13:16] LABS: Anion Gap 13.2 mEq/L (5-15); Blood Urea Nitrogen 43 mg/dL (7-18); Carbon Dioxide 28 mmol/L (21.0-32.0); Chloride 106 mmol/L (98-107); Creatinine,Serum 1.18 mg/dL (0.55-1.02); Estimated Glomerular Filt Rate 45 ml/min (>60); GFR (African American) 55 ML/MIN (>60); Glucose 74 mg/dL (74-106); Potassium 4.2 mmoL/L (3.5-5.1); Sodium 143 mmol/L (136-145)
== END ==
PROVIDERS: Visit Provider Nurse Practitioner Family
DX: I27.20 Pulmonary hypertension, unspecified (principal); I50.9 Heart failure, unspecified; R06.09 Other forms of dyspnea; R94.31 Abnormal electrocardiogram [ECG] [EKG]
CPT/HCPCS: 36415; 80048

== ENCOUNTER → 2019-07-10 15:00 | Outpatient (CLI) | payer MEDICARE, BC, SELFPAY ==
[2019-07-10 17:49] LABS: Anion Gap 15.4 mEq/L (5-15); Blood Urea Nitrogen 36 mg/dl (7-17); Calcium 10.1 mg/dl (8.4-10.2); Carbon Dioxide 29 mmol/L (22.0-30.0); Chloride 100 mmol/L (98-107); Estimated Glomerular Filt Rate 55 ml/min (>60); GFR (African American) 66 ML/MIN (>60); Glucose 105 mg/dl (74-100); Potassium 4.4 mmoL/L (3.5-5.1); Sodium 140 mmol/L (136-145)
== END ==
PROVIDERS: Visit Provider Internal Medicine
DX: I95.1 Orthostatic hypotension (principal); I50.32 Chronic diastolic (congestive) heart failure; I10 Essential (primary) hypertension
CPT/HCPCS: 36415; 80048

== ENCOUNTER → 2019-08-07 07:39 | Outpatient (CLI) | payer MEDICARE, BC, SELFPAY ==
[2019-08-07 08:15] LABS: Blood Urea Nitrogen 28 mg/dl (7-17); Estimated Glomerular Filt Rate 62 ml/min (>60); GFR (African American) 75 ML/MIN (>60)
--- NOTE | 2019-08-07 08:15 | MR_ITS ---
PROCEDURE: MR HEAD/BRAIN WO/W CON CLINICAL INDICATION: MS, GAIT DISTURBANCE Multiple sclerosis follow-up COMPARISON: BRAINWW MR head/brain wo/w con from 08/04/2018 TECHNIQUE: Routine multiplanar multi echo sequences are performed without and with gadolinium enhancement. FINDINGS: No midline shift mass effect intracranial hemorrhage or hydrocephalus is evident. No evidence of acute infarction. There is some slight increase in diffusion signal in the periventricular region on both sides somewhat heterogeneous but also demonstrating increased ADC signal consistent with T2 shine through. The cerebellopontine angle, cerebellum, and brainstem are unremarkable. There is mild diffuse atrophy with prominent periventricular and subcortical T2 white matter hyperintensities. 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 Much of the T2 changes however are nonspecific and could also be related to ischemic gliotic change from microvascular disease. Overall, these findings are not significantly changed. However, there is an area of ring-like contrast enhancement in the deep white matter of the right parietal lobe. This area measures 6 mm and is not apparent on the previous exam. This is best demonstrated on series 11, image 18 and series 12, image 18. No other abnormal areas of enhancement are evident. No mastoid effusion or sinus air-fluid level. IMPRESSION: 1. Once again there is noted diffuse periventricular and subcortical T2 white matter hyperintensities as previously described and may represent a combination of multiple sclerosis and ischemic gliotic changes from microvascular disease. 2. Small ring-like area of enhancement in the deep white matter of the right parietal lobe adjacent to the posterior horn of the right lateral ventricle. This has developed since the previous exam. This is nonspecific. Differential diagnosis would include neoplasm such as a small metastatic focus or an active demyelinating plaque. Follow-up recommended. Dictated by: Venancio Dawson MD 08/08/2019 10:43 Electronically signed by Venancio Dawson MD in [place] 08/08/2019 10:43
== END ==
PROVIDERS: PCP Internal Medicine; Visit Provider Psychiatry & Neurology Neurology
DX: G35 Multiple sclerosis (principal); R26.9 Unspecified abnormalities of gait and mobility
CPT/HCPCS: 36415; 70553; 82565; 84520; A9576

== ENCOUNTER → 2019-09-01 09:01 | Outpatient (CLI) | payer MEDICARE, BC, SELFPAY ==
[2019-09-01 09:22] LABS: Basophils # 0.1 K/mm3 (0-0.2); Basophils % 1.4 % (0.1-2.0); Eosinophils # 0.2 K/mm3 (0.0-0.4); Eosinophils % 2.8 % (0.1-12.0); Hematocrit 41.8 % (37.0-47.0); Hemoglobin 13.4 g/dL (12.2-16.2); Lymphocytes # 0.8 K/mm3 (0.7-4.5); Lymphocytes % 14.6 % (10-50); Mean Corpuscular HGB Conc 32.1 g/dL (31.8-35.4); Mean Corpuscular Volume 99.6 fl (81-99); Mean Platelet Volume 9.9 fl (7.4-10.4); Monocytes # 0.3 K/mm3 (0.1-1.0); Monocytes % 5.8 % (1.7-9.3); Neutrophils # 4.3 K/mm3 (1.8-7.8); Neutrophils % 75.5 % (37.0-80.0); Platelet Count 151 K/mm3 (142-424); Red Cell Distribution Width 13.6 % (11.5-17.5); White Blood Count 5.7 K/mm3 (4.8-10.8)
--- NOTE | 2019-09-01 09:25 | MR_ITS ---
PROCEDURE: MR HEAD/BRAIN WO/W CON CLINICAL INDICATION: MS Multiple sclerosis, follow-up abnormal MRI, gait disturbance COMPARISON: MR HEAD/BRAIN WO/W CON from 08/07/2019 TECHNIQUE: Routine multiplanar multi echo sequences are performed without and with gadolinium enhancement. FINDINGS: There is a small focal area increased diffusion signal also showing slight increased ADC signal consistent with T2 shine through within the white matter of the right parietal lobe posteriorly.. This shows some minimal contrast enhancement. Previously the contrast enhancement was ring-like but now is somewhat less intense and slightly more diffuse. This is not significantly changed in size and could represent and MS plaque or subacute area of infarction. This area measures approximately 6 mm similar in size to the previous exam there is diffuse periventricular and subcortical T2 white matter hyperintensity as previously described overall not significantly changed. An additional small area of increased diffusion signal is present in the left long radiata posteriorly. This area does not demonstrate contrast enhancement and is not significantly changed. There is diffuse periventricular and subcortical T2 white matter hyperintensity similar to the previous exam. No additional areas of enhancement. The the cerebellopontine angles, cerebellum, and brainstem have an unremarkable appearance. No mastoid effusion or sinus air-fluid level. There is mild diffuse atrophy. The pituitary, optic chiasm, and craniocervical junction have an unremarkable appearance. There is atrophy of the corpus callosum. IMPRESSION: 1. Overall stable MRI appearance of the brain. The small ring-like area of enhancement in the right parietal lobe shows somewhat less intense enhancement peripherally and only minimal enhancement now more diffusely with no change in the size. This could represent an MS plaque or a subacute lacunar infarction. 2. Additional small area of restricted diffusion noted in the left parietal lobe not significantly changed. This does not enhance and could represent a small area of subacute infarction 3. Overall no change in the diffuse periventricular and subcortical T2 white matter hyperintensity which could represent a combination of multiple sclerosis and chronic ischemic gliotic changes. Dictated by: Venancio Dawson MD 09/02/2019 09:04 Electronically signed by Venancio Dawson MD in [place] 09/02/2019 09:04
[2019-09-01 09:34] LABS: Alanine Aminotransferase 17 U/L (12-78); Albumin Level 4.4 g/dl (3.5-5.0); Albumin/Globulin Ratio 1.3 (1.1-1.8); Alkaline Phosphatase 90 U/L (38-126); Anion Gap 10.8 mEq/L (5-15); Aspartate Amino Transferase 35 U/L (14-36); Bilirubin,Total 0.4 mg/dl (0.2-1.3); Blood Urea Nitrogen 34 mg/dl (7-17); Calcium 9.8 mg/dl (8.4-10.2); Carbon Dioxide 29 mmol/L (22.0-30.0); Chloride 105 mmol/L (98-107); Chol/HDL Ratio 2.9 (1-3.5); Cholesterol 144 mg/dl (140-200); Estimated Glomerular Filt Rate 55 ml/min (>60); GFR (African American) 66 ML/MIN (>60); Globulin 3.4 g/dL (1.3-3.2); Glucose 85 mg/dl (74-100); HDL Cholesterol 50 mg/dl (40-60); Potassium 3.8 mmoL/L (3.5-5.1); Sodium 141 mmol/L (136-145); Total Protein,Serum 7.8 g/dl (6.3-8.2); Triglycerides 182 mg/dl (30-150); VLDL Cholesterol 36 mg/dL (0-40)
[2019-09-01 09:45] LABS: Direct LDL Cholesterol 69.05 mg/dL (100-129)
[2019-09-01 10:07] LABS: Thyroid Stimulating Hormone 4.92 uIU/mL (0.465-4.68)
[2019-09-02 10:51] LABS: Folate 9.3 ng/mL (>3.0); Vitamin B12 >2000 pg/mL (232-1245)
== END ==
PROVIDERS: PCP Internal Medicine; Visit Provider Psychiatry & Neurology Neurology
DX: G35 Multiple sclerosis (principal); I67.9 Cerebrovascular disease, unspecified; Z79.899 Other long term (current) drug therapy; E55.9 Vitamin D deficiency, unspecified
CPT/HCPCS: 36415; 70553; 80053; 80061; 82607; 82652; 82746; 84443; 85025; A9576

== ENCOUNTER → 2020-02-02 10:45 | Outpatient (CLI) | payer MEDICARE, BC, SELFPAY ==
[2020-02-02 12:10] LABS: Chloride 103 mmol/L (98-107); Potassium 3.9 mmoL/L (3.5-5.1); Sodium 142 mmol/L (136-145)
[2020-02-02 12:13] LABS: Anion Gap 14.9 mEq/L (5-15); Blood Urea Nitrogen 33 mg/dl (7-17); Calcium 9.9 mg/dl (8.4-10.2); Carbon Dioxide 28 mmol/L (22.0-30.0); Estimated Glomerular Filt Rate 40 ml/min (>60); GFR (African American) 49 ML/MIN (>60); Glucose 81 mg/dl (74-100)
[2020-02-02 12:42] LABS: Thyroid Stimulating Hormone 4.18 uIU/mL (0.465-4.68)
== END ==
PROVIDERS: Visit Provider Internal Medicine
DX: G35 Multiple sclerosis (principal); I10 Essential (primary) hypertension; E03.9 Hypothyroidism, unspecified; E78.5 Hyperlipidemia, unspecified
CPT/HCPCS: 36415; 80048; 84443

== ENCOUNTER → 2020-02-25 10:15 | Outpatient (CLI) | payer MEDICARE, BC, SELFPAY ==
--- NOTE | 2020-02-25 10:29 | MR_ITS ---
PROCEDURE: MR HEAD/BRAIN WO/W CON CLINICAL INDICATION: MULTIPLE SCLEROSIS ABNORMAL MRI FROM 09-01-19, FOLLOW-UP. NO NEW SYMPTOMS 13ML EVE LOT:[id number] EXP:MAY 2022 BUN: 34 CREAT: 1.50 GFR:34 COMPARISON: MR BRAINWW MR head/brain wo/w con from 08/04/2018 MR MR HEAD/BRAIN WO/W CON from 09/01/2019 TECHNIQUE: Routine multiplanar multi echo sequences are performed without and with gadolinium enhancement. FINDINGS: No midline shift, mass effect, intracranial hemorrhage, or hydrocephalus is evident. There is atrophy with periventricular small T2 white matter hyperintensities as previously described which may reflect ischemic gliotic change from small vessel disease. No areas of acute infarction evident. There is increased T2 signal involving the splenium of the corpus callosum which is more apparent on the DIR images. This is a stable finding. Previously there was a faint area of enhancement in the right parietal lobe suspicious for a small enhancing MS plaque. The enhancement is no longer apparent. There is some increased T2 signal at this area. No new white matter lesions are evident. Some of the periventricular T2 hyperintensities appear somewhat less intense compared to the previous exam in the left periventricular region. No cerebellar lesions. No temporal lobe lesions identified. IMPRESSION: 1. Atrophy with prominent periventricular and subcortical T2 white matter hyperintensities which may be due to combination of ischemic gliotic change and multiple sclerosis as previously described. The T2 white matter hyperintensity appears somewhat less intense compared to the previous exam. Corpus callosum involvement noted at the splenium not significantly changed. 2. The previously subtle area of enhancement in the right parietal lobe is no longer apparent and may have represented an MS plaque with improvement lesion inflammation. Dictated by: Venancio Dawson MD 02/26/2020 12:51 Venancio Dawson MD in [place] 02/26/2020 12:51
[2020-02-25 10:38] LABS: Blood Urea Nitrogen 34 mg/dl (7-17); Estimated Glomerular Filt Rate 34 ml/min (>60); GFR (African American) 42 ML/MIN (>60)
== END ==
PROVIDERS: PCP Internal Medicine; Visit Provider Psychiatry & Neurology Neurology
DX: G35 Multiple sclerosis (principal)
CPT/HCPCS: 36415; 70553; 82565; 84520; A9576

== ENCOUNTER 2020-04-18 10:00 | Outpatient (RCR) | payer MEDICARE, BC, SELFPAY | END 2020-04-18 10:05 | disposition home or self-care (01) | LOC: PT 10:00 | PROVIDERS: PCP Internal Medicine; Visit Provider Internal Medicine | DX: G35 Multiple sclerosis (principal); M62.81 Muscle weakness (generalized) | CPT/HCPCS: 97110; 97112; 97163; 97164; 97530 ==

== ENCOUNTER → 2020-05-12 11:40 | Outpatient (CLI) | payer MEDICARE, BC, SELFPAY ==
[2020-05-12 12:55] LABS: Basophils % 0.7 % (0.1-2.0); Eosinophils # 0.1 K/mm3 (0.0-0.4); Eosinophils % 1.3 % (0.1-12.0); Hematocrit 42.4 % (37.0-47.0); Hemoglobin 13.6 g/dL (12.2-16.2); Lymphocytes # 1.4 K/mm3 (0.7-4.5); Lymphocytes % 24.3 % (10-50); Mean Corpuscular HGB Conc 32.1 g/dL (31.8-35.4); Mean Corpuscular Hemoglobin 32.5 pg (27.0-31.2); Mean Corpuscular Volume 101.3 fl (81-99); Mean Platelet Volume 8.6 fl (7.4-10.4); Monocytes # 0.4 K/mm3 (0.1-1.0); Monocytes % 6.8 % (1.7-9.3); Neutrophils # 3.8 K/mm3 (1.8-7.8); Neutrophils % 66.9 % (37.0-80.0); Platelet Count 157 K/mm3 (142-424); Red Blood Count 4.19 M/mm3 (4.20-5.40); Red Cell Distribution Width 14.1 % (11.5-17.5); White Blood Count 5.6 K/mm3 (4.8-10.8)
[2020-05-12 13:31] LABS: Alanine Aminotransferase 12 U/L (12-78); Albumin Level 4.2 g/dl (3.5-5.0); Albumin/Globulin Ratio 1.3 (1.1-1.8); Alkaline Phosphatase 72 U/L (38-126); Anion Gap 13.5 mEq/L (5-15); Aspartate Amino Transferase 24 U/L (14-36); Bilirubin,Total 0.6 mg/dl (0.2-1.3); Blood Urea Nitrogen 31 mg/dl (7-17); Calcium 9.8 mg/dl (8.4-10.2); Carbon Dioxide 28 mmol/L (22.0-30.0); Chloride 102 mmol/L (98-107); Estimated Glomerular Filt Rate 44 ml/min (>60); GFR (African American) 54 ML/MIN (>60); Globulin 3.2 g/dL (1.3-3.2); Glucose 78 mg/dl (74-100); Potassium 3.5 mmoL/L (3.5-5.1); Sodium 140 mmol/L (136-145); Total Protein,Serum 7.4 g/dl (6.3-8.2)
[2020-05-12 13:48] LABS: 25-OH Vitamin D, Total 13.6 ng/mL (30-100)
[2020-05-12 14:43] LABS: Folate 5.27 ng/mL; Vitamin B12 > 1000 pg/mL (239-931)
== END ==
PROVIDERS: Visit Provider Psychiatry & Neurology Neurology
DX: G35 Multiple sclerosis (principal); E55.9 Vitamin D deficiency, unspecified
CPT/HCPCS: 36415; 80053; 82306; 82607; 82746; 85025

== ENCOUNTER → 2020-08-09 09:31 | Outpatient (CLI) | payer MEDICARE, BC, SELFPAY ==
[2020-08-09 10:07] LABS: Basophils % 0.6 % (0.1-2.0); Eosinophils # 0.1 K/mm3 (0.0-0.4); Hematocrit 41.1 % (37.0-47.0); Hemoglobin 13.4 g/dL (12.2-16.2); Lymphocytes # 1.2 K/mm3 (0.7-4.5); Mean Corpuscular HGB Conc 32.5 g/dL (31.8-35.4); Mean Corpuscular Hemoglobin 32.1 pg (27.0-31.2); Mean Platelet Volume 8.4 fl (7.4-10.4); Monocytes # 0.3 K/mm3 (0.1-1.0); Monocytes % 5.6 % (1.7-9.3); Neutrophils # 4.1 K/mm3 (1.8-7.8); Neutrophils % 71.8 % (37.0-80.0); Platelet Count 140 K/mm3 (142-424); Red Blood Count 4.16 M/mm3 (4.20-5.40); Red Cell Distribution Width 14.3 % (11.5-17.5); White Blood Count 5.7 K/mm3 (4.8-10.8)
[2020-08-09 10:26] LABS: Alanine Aminotransferase 15 U/L (12-78); Albumin Level 4.3 g/dl (3.5-5.0); Albumin/Globulin Ratio 1.6 (1.1-1.8); Alkaline Phosphatase 64 U/L (38-126); Anion Gap 14.8 mEq/L (5-15); Aspartate Amino Transferase 28 U/L (14-36); Bilirubin,Total 0.6 mg/dl (0.2-1.3); Blood Urea Nitrogen 37 mg/dl (7-17); Calcium 9.7 mg/dl (8.4-10.2); Carbon Dioxide 23 mmol/L (22.0-30.0); Chloride 107 mmol/L (98-107); Cholesterol 141 mg/dl (140-200); Estimated Glomerular Filt Rate 34 ml/min (>60); GFR (African American) 41 ML/MIN (>60); Globulin 2.7 g/dL (1.3-3.2); Glucose 104 mg/dl (74-100); HDL Cholesterol 47 mg/dl (40-60); Potassium 3.8 mmoL/L (3.5-5.1); Sodium 141 mmol/L (136-145); Triglycerides 174 mg/dl (30-150); VLDL Cholesterol 35 mg/dL (0-40)
[2020-08-09 10:56] LABS: Thyroid Stimulating Hormone 1.05 uIU/mL (0.465-4.68)
== END ==
PROVIDERS: Visit Provider Internal Medicine
DX: D18.03 Hemangioma of intra-abdominal structures (principal); G35 Multiple sclerosis; E78.5 Hyperlipidemia, unspecified; E03.9 Hypothyroidism, unspecified; I10 Essential (primary) hypertension
CPT/HCPCS: 36415; 80053; 80061; 84443; 85025

== ENCOUNTER 2020-08-10 11:00 | Outpatient (RCR) | payer MEDICARE, BC, SELFPAY | END 2020-08-10 11:05 | disposition home or self-care (01) | LOC: PT 11:00 | PROVIDERS: PCP Internal Medicine; Visit Provider Internal Medicine | DX: G35 Multiple sclerosis (principal); M62.81 Muscle weakness (generalized) | CPT/HCPCS: 97110; 97112; 97163; 97164 ==

== ENCOUNTER 2020-08-24 16:52 | Emergency (ER) | payer MEDICARE, BC, SELFPAY ==
[2020-08-24 17:00] VITALS: BP 159/72; PULSE 69; RESP 20; TEMP 36.7; O2SAT 97; BMI 23.1
--- NOTE | 2020-08-24 17:27 | HMH.EDUTC ---
[facility] [place] Disposition Clinical Impression: UTI (urinary tract infection) Qualifiers: Urinary tract infection type: site unspecified Hematuria presence: with hematuria Qualified Code(s): N39.0 - Urinary tract infection, site not specified Disposition: Home, Self-Care Condition on Discharge: Good Instructions: DI for Urinary Tract Infection (UTI), Phenazopyridine Additional Instructions: Drink plenty of fluids. Take tylenol or ibuprofen for pain or fever. Take the medications as directed. Follow up with your regular doctor. GO TO THE ER FOR ANY WORSENING SYMPTOMS The pyridium will make your urine turn orange, this is an expected side effect. It will stain your clothes if it comes into contact with them. Prescriptions: Sulfamethoxazole/Trimethoprim [Bactrim DS tablet] 1 each PO BID 7 Days #14 tab Transmission Status: Received by [facility] Phenazopyridine HCl [Pyridium 200mg Tablet] 200 pow PO TID #6 tab Transmission Status: Received by [facility] Referrals: Suman Bell [Primary Care Provider] - Time of Disposition: 17:54 Medical Decision Making - Medical Records Medical records reviewed: No: I reviewed the patient's medical records. - Emmanuel Inquiry Pt receiving controlled substance: No Vital Signs: 08/24/20 17:00 08/24/20 17:59 Temperature 98.0 F 98.0 F Temperature Source Temporal Artery Scan Pulse Rate 69 Pulse Rate [Right Brachial] 69 Respiratory Rate 20 20 Blood Pressure 159/72 H Blood Pressure [Right Arm] 159/72 H Blood Pressure Mean [Right Arm] 101 Blood Pressure Source [Right Arm] Automatic Cuff Blood Pressure Position [Right Arm] Sitting 02 Sat by Pulse Oximetry 97 Oxygen Delivery Method Room Air - Lab Data Lab Results 08/24/20 17:53: Urine Color Yellow, Urine Appearance Clear, Urine pH 5.5, Ur Specific Gering 1.020, Urine Protein Negative, Urine Glucose (UA) Negative, Urine Ketones Negative, Urine Blood Trace, Urine Nitrate Positive A, Urine Bilirubin Negative, Urine Urobilinogen 2, Ur Leukocyte Esterase 3+ A Orders (Tests/Meds): ED MEDICATIONS Discontinued Medications Generic Name Dose Route Start Last Admin Trade Name Freq PRN Reason Stop Dose Admin Ceftriaxone Sodium 1 gm 08/24/20 17:34 08/24/20 17:40 Ceftriaxone 1gm Vial IM 08/24/20 17:35 1 gm ONCE ONE Administration Protocol Lidocaine HCl 0 ml 08/24/20 17:34 08/24/20 17:40 Lidocaine 1% 5ml Pf Vial IM 08/24/20 17:35 2.1 ml ONCE ONE Administration ORDERS Category Date Time Status Urine Culture(cathed specimen) Stat Micro 08/24/20 17:30 Results Medical Decision Narrative: She was in and out cathed and 500 milliliters of clear yellow urine was returned. U/a and culture taken. [facility] [place] HPI - General Stated complaint: can't go to Bath Room Time Seen by Provider: 08/24/20 17:27 - History of Present Illness Provider Complaint: She states that since earlier today she has had trouble urinating. She has a history of MS. She thinks that she has a uti at this time. - Related Data Home Medications Medication Instructions Recorded Confirmed Acetaminophen/Diphenhydramine 1 each PO HS 05/09/19 10/02/19 [Tylenol Pm Ex-Strength Caplet] Aspirin [Aspirin 81mg EC Tab] 81 mg PO DAILY 05/09/19 10/02/19 Atorvastatin Calcium [Lipitor 20mg 20 mg PO DAILY 05/09/19 10/02/19 Tab] Cyanocobalamin (Vitamin B-12) 1,000 mcg PO DAILY 05/09/19 10/02/19 [Vitamin B-12] Gabapentin 600 mg PO BID 05/09/19 10/02/19 Levothyroxine Sodium [Synthroid 50 mcg PO DAILY 05/09/19 10/02/19 50mcg (0.05mg) tab] Potassium Chloride 20 meq PO DAILY 05/09/19 10/02/19 interferon beta-1b 0.3 mg SQ 05/22/19 10/02/19 subcutaneous kit sertraline 100 mg tablet 100 mg PO BID tab 05/22/19 10/02/19 spironolactone 25 mg tablet 25 mg PO DAILY tab 07/03/19 10/02/19 carboxymethyl 0.5 %-glycerin 1 1 drp OPHTHALMIC QHS 07/13/19 10/02/19 %-polysorb 80 0.5 %-PF eye
[2020-08-24 17:59] VITALS: BP 159/72; PULSE 69; RESP 20; TEMP 36.7; O2SAT 97
[2020-08-24 19:34] LABS: Apearance,Urine Clear (Clear); Bilirubin,Urine Negative (Negative); Blood, Urine Trace (Negative); Color,Urine Yellow (Yellow); Glucose,Urine (UA) Negative (Negative); Ketones,Urine Negative (Negative); PH,Urine 5.5 (5.0-8.5); Protein,Urine Negative (Negative)
[2020-08-24 19:35] LABS: UTC Leukocyte Esterase,Urine 3+ (Negative); UTC Nitrate,Urine Positive (Negative); Urobilinogen,Urine 2 EU/dl (0.2)
== END 2020-08-24 18:06 | disposition home or self-care (01) ==
PROVIDERS: Emergency Provider Nurse Practitioner Family; PCP Internal Medicine
DX: N30.00 Acute cystitis without hematuria (principal); I10 Essential (primary) hypertension; E78.5 Hyperlipidemia, unspecified; G35 Multiple sclerosis; Z79.899 Other long term (current) drug therapy
CPT/HCPCS: G0463; 81003; 87086; 87088; 87186; 96372; 99203

== ENCOUNTER → 2020-08-29 10:43 | Outpatient (CLI) | payer MEDICARE, BC, SELFPAY ==
--- NOTE | 2020-08-29 10:49 | XR_ITS ---
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 No fracture or dislocation. Benign-appearing cystic areas are present in the symphysis pubis on both sides. The lateral to the lower ilium there is faint irregular area increased density. This could represent artifact from something upon the patient versus some minimal soft tissue calcification. IMPRESSION: No acute findings. Questionable minimal soft tissue calcification along the lower ileal region laterally versus overlying artifact Dictated by: Venancio Dawson MD 08/29/2020 11:20 Venancio Dawson MD in [place] 08/29/2020 11:20
== END ==
PROVIDERS: PCP Internal Medicine; Visit Provider Internal Medicine
DX: M25.551 Pain in right hip (principal); R10.2 Pelvic and perineal pain; W19.XXXA Unspecified fall, initial encounter
CPT/HCPCS: 73502

== ENCOUNTER → 2020-09-01 11:52 | Outpatient (CLI) | payer MEDICARE, BC, SELFPAY | PROVIDERS: PCP Internal Medicine; Visit Provider Internal Medicine Cardiovascular Disease | DX: R00.2 Palpitations (principal) | CPT/HCPCS: 93225 ==

== ENCOUNTER → 2020-09-29 12:02 | Outpatient (CLI) | payer MEDICARE, BC, SELFPAY ==
[2020-09-29 13:01] LABS: Chloride 106 mmol/L (98-107); Potassium 4.7 mmoL/L (3.5-5.1); Sodium 141 mmol/L (136-145)
[2020-09-29 13:04] LABS: Anion Gap 11.7 mEq/L (5-15); Blood Urea Nitrogen 28 mg/dl (7-17); Calcium 9.8 mg/dl (8.4-10.2); Carbon Dioxide 28 mmol/L (22.0-30.0); Estimated Glomerular Filt Rate 49 ml/min (>60); GFR (African American) 59 ML/MIN (>60); Glucose 75 mg/dl (74-100)
== END ==
PROVIDERS: Visit Provider Internal Medicine Cardiovascular Disease
DX: I27.20 Pulmonary hypertension, unspecified (principal); I50.9 Heart failure, unspecified; I95.9 Hypotension, unspecified; J44.9 Chronic obstructive pulmonary disease, unspecified; R06.00 Dyspnea, unspecified; R42 Dizziness and giddiness; R94.31 Abnormal electrocardiogram [ECG] [EKG]
CPT/HCPCS: 36415; 80048

== ENCOUNTER → 2021-01-24 10:16 | Outpatient (CLI) | payer MEDICARE, BC, SELFPAY ==
[2021-01-24 11:26] LABS: Basophils % 0.4 % (0.1-2.0); Eosinophils # 0.1 K/mm3 (0.0-0.4); Eosinophils % 1.2 % (0.1-12.0); Hematocrit 41.9 % (37.0-47.0); Hemoglobin 13.1 g/dL (12.2-16.2); Lymphocytes # 1.3 K/mm3 (0.7-4.5); Lymphocytes % 18.1 % (10-50); Mean Corpuscular HGB Conc 31.3 g/dL (31.8-35.4); Mean Corpuscular Hemoglobin 32.3 pg (27.0-31.2); Mean Corpuscular Volume 103.2 fl (81-99); Mean Platelet Volume 8.9 fl (7.4-10.4); Monocytes # 0.4 K/mm3 (0.1-1.0); Neutrophils # 5.2 K/mm3 (1.8-7.8); Neutrophils % 74.2 % (37.0-80.0); Platelet Count 116 K/mm3 (142-424); Red Blood Count 4.06 M/mm3 (4.20-5.40); Red Cell Distribution Width 14.1 % (11.5-17.5)
[2021-01-24 12:31] LABS: 25-OH Vitamin D, Total 58.8 ng/mL (30-100)
[2021-01-24 12:33] LABS: Alanine Aminotransferase 15 U/L (12-78); Albumin Level 3.9 g/dl (3.5-5.0); Albumin/Globulin Ratio 1.3 (1.1-1.8); Alkaline Phosphatase 53 U/L (38-126); Anion Gap 14.7 mEq/L (5-15); Aspartate Amino Transferase 28 U/L (14-36); Bilirubin,Total 0.6 mg/dl (0.2-1.3); Blood Urea Nitrogen 28 mg/dl (7-17); Calcium 9.3 mg/dl (8.4-10.2); Carbon Dioxide 25 mmol/L (22.0-30.0); Chloride 107 mmol/L (98-107); Estimated Glomerular Filt Rate 55 ml/min (>60); GFR (African American) 66 ML/MIN (>60); Globulin 2.9 g/dL (1.3-3.2); Glucose 85 mg/dl (74-100); Potassium 4.7 mmoL/L (3.5-5.1); Sodium 142 mmol/L (136-145); Total Protein,Serum 6.8 g/dl (6.3-8.2)
[2021-01-24 12:36] LABS: Chol/HDL Ratio 2.6 (1-3.5); Cholesterol 131 mg/dl (140-200); HDL Cholesterol 50 mg/dl (40-60); Triglycerides 109 mg/dl (30-150); VLDL Cholesterol 22 mg/dL (0-40)
[2021-01-24 12:47] LABS: Direct LDL Cholesterol 58.34 mg/dL (100-129)
[2021-01-24 13:37] LABS: Vitamin B12 973 pg/mL (239-931)
[2021-01-24 13:50] LABS: Folate 8.95 ng/mL
== END ==
PROVIDERS: Internal Medicine; Visit Provider Psychiatry & Neurology Neurology
DX: G35 Multiple sclerosis (principal); I50.30 Unspecified diastolic (congestive) heart failure; I95.1 Orthostatic hypotension; I11.0 Hypertensive heart disease with heart failure; E78.5 Hyperlipidemia, unspecified
CPT/HCPCS: 36415; 80053; 80061; 82306; 82607; 82746; 84443; 85025

== ENCOUNTER → 2021-01-27 17:26 | Outpatient (CLI) | payer MEDICARE, BC, SELFPAY | PROVIDERS: PCP Internal Medicine; Visit Provider Nurse Practitioner | DX: Z20.822 Contact with and (suspected) exposure to COVID-19 (principal); U07.1 COVID-19 | CPT/HCPCS: C9803; U0003; U0005 ==

== ENCOUNTER 2021-01-28 11:27 | Emergency (ER) | payer MEDICARE, BC, SELFPAY ==
[2021-01-28 11:28] VITALS: BP 143/105; PULSE 73; RESP 18; TEMP 37.9; O2SAT 94; BMI 22.3
--- NOTE | 2021-01-28 11:40 | ECG_ITS ---
APPROVED REPORT Exam: Resting ECG HR:65 bpm ECG Measurements Heart Rate 65 AXES MN 128 P 74 QRSd 74 QRS 75 QT 426 T 68 QTc 443 Conclusion Normal sinus rhythm Possible Left atrial enlargement Septal infarct, age undetermined Abnormal ECG Electronically signed by : Jeison Cullen MD 01/28/2021 21:09:41
--- NOTE | 2021-01-28 11:43 | XR_ITS ---
PROCEDURE INFORMATION: Exam: XR Chest Exam date and time: 01/28/2021 11:43 AM Age: 70 years old Clinical indication: Shortness of breath; Additional info: SOB TECHNIQUE: Imaging protocol: XR of the chest. Views: 1 view. COMPARISON: CR XR CHEST 2V 05/09/2019 4:54 PM FINDINGS: Tubes, catheters and devices: Overlying EKG wires Lungs: Hyperexpanded lung welsh consistent with COPD; Calcified granuloma in the right lung base. No focal consolidation Pleural spaces: Unremarkable. No pleural effusion. No pneumothorax. Heart/Mediastinum: Unremarkable. No cardiomegaly. Bones/joints: Unremarkable. IMPRESSION: Hyperexpanded lung welsh consistent with COPD
[2021-01-28 12:01] LABS: Basophils % 0.3 % (0.1-2.0); Eosinophils # 0.1 K/mm3 (0.0-0.4); Hematocrit 39.4 % (37.0-47.0); Hemoglobin 12.5 g/dL (12.2-16.2); Lymphocytes # 0.6 K/mm3 (0.7-4.5); Lymphocytes % 8.2 % (10-50); Mean Corpuscular HGB Conc 31.7 g/dL (31.8-35.4); Mean Corpuscular Hemoglobin 32.2 pg (27.0-31.2); Mean Corpuscular Volume 101.7 fl (81-99); Mean Platelet Volume 8.4 fl (7.4-10.4); Monocytes # 0.3 K/mm3 (0.1-1.0); Monocytes % 4.9 % (1.7-9.3); Neutrophils # 5.6 K/mm3 (1.8-7.8); Neutrophils % 84.6 % (37.0-80.0); Platelet Count 99 K/mm3 (142-424); Red Blood Count 3.88 M/mm3 (4.20-5.40); Red Cell Distribution Width 13.9 % (11.5-17.5); White Blood Count 6.6 K/mm3 (4.8-10.8)
[2021-01-28 12:09] LABS: Chloride 108 mmol/L (98-107); Potassium 4.7 mmoL/L (3.5-5.1); Sodium 140 mmol/L (136-145)
[2021-01-28 12:11] LABS: Alanine Aminotransferase 15 U/L (12-78); Aspartate Amino Transferase 26 U/L (14-36); Blood Urea Nitrogen 25 mg/dl (7-17); Creatinine Clearance Estimated 39 mL/min (50-200); Estimated Glomerular Filt Rate 44 ml/min (>60); GFR (African American) 54 ML/MIN (>60)
[2021-01-28 12:12] LABS: Albumin Level 3.8 g/dl (3.5-5.0); Albumin/Globulin Ratio 1.2 (1.1-1.8); Alkaline Phosphatase 58 U/L (38-126); Anion Gap 13.7 mEq/L (5-15); Bilirubin,Total 0.8 mg/dl (0.2-1.3); Calcium 9.4 mg/dl (8.4-10.2); Carbon Dioxide 23 mmol/L (22.0-30.0); Globulin 3.1 g/dL (1.3-3.2); Glucose 95 mg/dl (74-100); Total Protein,Serum 6.9 g/dl (6.3-8.2)
[2021-01-28 12:24] LABS: Troponin I 0.18 ng/ml (0.00-0.034)
[2021-01-28 13:17] VITALS: BP 123/74; PULSE 74; RESP 16; TEMP 36.6; O2SAT 98
--- NOTE | 2021-01-29 08:15 | HMH.EDGENADL ---
ED Disposition Clinical Impression: COVID-19 Disposition: Home, Self-Care Condition on Discharge: Good Additional Instructions: You have an appointment Saturday01/31/21 at 1:00pm for an infusion. PLease come to the ED Registration and tell them you are here for a COVID infusion. Zofran has been called in for nausea. Inhaler has been called in for shortness of breath. Take these as directed. Return to Emergency Department for worsening shortness of breath, or worsening symptoms. Prescriptions: Albuterol Sulfate [Proventil Hfa] 6.7 gm IH Q2H 10 Days #1 applic Transmission Status: Received by [facility] Ondansetron [Zofran 4mg ODT] 4 mg PO TIDP PRN #12 tab PRN Reason: Vomiting Transmission Status: Received by [facility] Referrals: Suman Bell [Primary Care Provider] - - Critical Care Critical Care Time: No Attestation: On 01/28/21, the high probability of a clinically significant, sudden or life threatening deterioration of the following system(s) required my full and direct attention, intervention and personal management. The time I documented below is in addition to time spent performing reported procedures but includes the following listed in this critical care notation. Medical Decision Making - Emmanuel Inquiry Pt receiving controlled substance: No Vital Signs: 01/28/21 11:28 01/28/21 13:17 Temperature 100.2 F H 98 F Temperature Source Oral Oral Pulse Rate 74 Pulse Rate [Radial] 73 Respiratory Rate 18 16 Blood Pressure 123/74 Blood Pressure [Right Arm] 143/105 H Blood Pressure Mean [Right Arm] 117 Blood Pressure Position Sitting Blood Pressure Position [Right Arm] Sitting 02 Sat by Pulse Oximetry 94 L Oxygen Delivery Method Room Air Room Air - Lab Data Lab Results 01/28/21 11:55: WBC 6.6, RBC 3.88 L, Hgb 12.5, Hct 39.4, MCV 101.7 H, MCH 32.2 H, MCHC 31.7 L, RDW 13.9, Plt Count 99 L, MPV 8.4, Neut % (Auto) 84.6 H, Lymph % (Auto) 8.2 L, Mchenry % (Auto) 4.9, Eos % (Auto) 2.0, Baso % (Auto) 0.3, Neut # (Auto) 5.6, Lymph # (Auto) 0.6 L, Mchenry # (Auto) 0.3, Eos # (Auto) 0.1, Baso # (Auto) 0.0 01/28/21 11:55: Sodium 140, Potassium 4.7, Chloride 108 H, Carbon Dioxide 23, Anion Gap 13.7, BUN 25 H, Creatinine 1.20 H, Estimated Creat Clear 39, Estimated GFR 44 L, Est GFR ( Amer) 54 L, Glucose 95, Calcium 9.4, Total Bilirubin 0.8, AST 26, ALT 15, Alkaline Phosphatase 58, Troponin I 0.18 H, Total Protein 6.9, Albumin 3.8, Globulin 3.1, Albumin/Globulin Ratio 1.2 Result diagrams: 01/28/21 11:55 01/28/21 11:55 Medical Decision Narrative: Patient arrives in the emergency department otherwise well-appearing, complaining of low oxygen and low heart rate on vital sign check at home after being diagnosed with COVID-19 yesterday. She appears well on arrival, and has normal vital signs in the emergency department. A full panel of labs was obtained which did not reveal any abnormalities aside from mildly elevated troponin. On review, this troponin is less than her prior levels, and she has no current symptoms at this time. EKG appears to be normal sinus rhythm without ST elevations or depressions. Patient has a past medical history of multiple sclerosis and is on immune modifying medications and is over the age of 65, therefore would qualify for monoclonal antibody infusion. is set up for the same infusion, so she will present to the emergency department again on Saturday to receive Covid monoclonal antibody infusion. Patient was discharged home with prescription for Zofran for nausea and albuterol PRN for any SOA at home. Patient was amenable to this plan and discharged in stable condition at this time. General Adult HPI - General Chief complaint: Shortness of Breath/Dyspnea Stated complaint: oxygen and heart rate low Time Seen by Provider: 01/28/21 11:40 Mode of Arrival: Wheelchair Source of Information: Patient Limitations: No Limitations Description of Symptoms (Re
== END 2021-01-28 13:20 | disposition home or self-care (01) ==
PROVIDERS: Emergency Provider Emergency Medicine; PCP Internal Medicine
DX: U07.1 COVID-19 (principal)
CPT/HCPCS: 71045; 80053; 84484; 85025; 93005; 99283

== ENCOUNTER → 2021-01-31 15:55 | Outpatient (CLI) | payer MEDICARE, BC, SELFPAY ==
[2021-01-31] VITALS (8 sets, daily range): BP systolic 118–164; BP diastolic 66–96; PULSE 71–99; RESP 16–20; TEMP 36.3; O2SAT 94–98
== END ==
PROVIDERS: PCP Emergency Medicine; Visit Provider Emergency Medicine
DX: U07.1 COVID-19 (principal)
CPT/HCPCS: 96365

== ENCOUNTER → 2021-02-13 10:49 | Outpatient (CLI) | payer MEDICARE, BC, SELFPAY | PROVIDERS: PCP Internal Medicine; Visit Provider Internal Medicine | DX: R00.1 Bradycardia, unspecified (principal) | CPT/HCPCS: 93225; 93226 ==

== ENCOUNTER → 2021-06-02 14:19 | Outpatient (CLI) | payer MEDICARE, BC, SELFPAY ==
[2021-06-02 14:38] LABS: Basophils # 0.2 K/mm3 (0-0.2); Basophils % 2.2 % (0.1-2.0); Eosinophils # 0.2 K/mm3 (0.0-0.4); Eosinophils % 2.3 % (0.1-12.0); Hematocrit 44.8 % (37.0-47.0); Hemoglobin 14.1 g/dL (12.2-16.2); Lymphocytes # 0.9 K/mm3 (0.7-4.5); Lymphocytes % 11.7 % (10-50); Mean Corpuscular HGB Conc 31.3 g/dL (31.8-35.4); Mean Corpuscular Hemoglobin 32.5 pg (27.0-31.2); Mean Corpuscular Volume 103.7 fl (81-99); Mean Platelet Volume 8.6 fl (7.4-10.4); Monocytes # 0.3 K/mm3 (0.1-1.0); Monocytes % 4.6 % (1.7-9.3); Neutrophils # 5.9 K/mm3 (1.8-7.8); Neutrophils % 79.3 % (37.0-80.0); Platelet Count 193 K/mm3 (142-424); Red Blood Count 4.32 M/mm3 (4.20-5.40); Red Cell Distribution Width 13.5 % (11.5-17.5); White Blood Count 7.4 K/mm3 (4.8-10.8)
[2021-06-02 16:07] LABS: Anion Gap 11.3 mEq/L (5-15); Blood Urea Nitrogen 23 mg/dl (7-17); Carbon Dioxide 28 mmol/L (22.0-30.0); Chloride 104 mmol/L (98-107); Estimated Glomerular Filt Rate 62 ml/min (>60); GFR (African American) 74 ML/MIN (>60); Glucose 110 mg/dl (74-100); Potassium 4.3 mmoL/L (3.5-5.1); Sodium 139 mmol/L (136-145)
[2021-06-02 16:22] LABS: Free T4 (Free Thyroxine) 1.82 ng/dl (0.78-2.19)
[2021-06-02 16:38] LABS: Thyroid Stimulating Hormone 3.88 uIU/mL (0.465-4.68)
== END ==
PROVIDERS: PCP Internal Medicine; Visit Provider Internal Medicine Cardiovascular Disease
DX: E78.2 Mixed hyperlipidemia (principal); I50.32 Chronic diastolic (congestive) heart failure; I95.9 Hypotension, unspecified; I11.0 Hypertensive heart disease with heart failure
CPT/HCPCS: 36415; 80048; 84439; 84443; 85025

== ENCOUNTER 2021-06-12 12:14 | Emergency (ER) | payer MEDICARE, BC, SELFPAY ==
[2021-06-12 12:15] VITALS: BP 194/77; PULSE 55; RESP 18; TEMP 36.6; O2SAT 98; BMI 20.5
--- NOTE | 2021-06-12 12:38 | CT_ITS ---
FINAL REPORT CLINICAL HISTORY: FALL, HEMATOMA RIGHT SIDE OF FOREHEAD ABOVE RIGHT EYEBROW COMPARISON: February 18, 2017 FINDINGS: Axial images of the head were obtained without contrast. Coronal reformatted images were also obtained. This study was performed with techniques to keep radiation doses as low as reasonably achievable (ALARA). Individualized dose reduction techniques using automated exposure control or adjustment of mA and/or kV according to the patient's size were employed. There is generalized age-appropriate atrophy. Periventricular low-attenuation areas are seen consistent with moderate chronic ischemic changes. There is no evidence of intracranial hemorrhage or mass. There is no evidence of acute infarct. There is no evidence of shift of the midline structures. No skull abnormality is seen on the bone window images. IMPRESSION: Atrophy and moderate periventricular chronic ischemic changes. No acute intracranial abnormality identified. Reviewed, Interpreted and Dictated by Jorge L Coronado III, MD Transcribed by Rian Freedman Authenticated by Jorge L Coronado III, MD on 06/12/2021 02:04:04 PM [facility]
--- NOTE | 2021-06-12 12:38 | CT_ITS ---
FINAL REPORT CLINICAL HISTORY: FALL COMPARISON: February 18, 2017 FINDINGS: Axial CT images of the cervical spine were obtained without contrast. Sagittal and coronal reformatted images were also obtained. This study was performed with techniques to keep radiation doses as low as reasonably achievable (ALARA). Individualized dose reduction techniques using automated exposure control or adjustment of mA and/or kV according to the patient's size were employed. There is no evidence of fracture or dislocation. The bony alignment is normal. There are mild degenerative changes. There is multilevel neural foraminal narrowing. There is no evidence of canal stenosis. No paraspinous soft tissue abnormality is seen. Limited images of the upper thorax are unremarkable. IMPRESSION: No fracture or acute bony abnormality identified. Reviewed, Interpreted and Dictated by Jorge L Coronado III, MD Transcribed by Rian Freedman Authenticated by Jorge L Coronado III, MD on 06/12/2021 02:03:51 PM [facility]
--- NOTE | 2021-06-12 12:42 | PC.NURSE ---
patient to CT with outer diameter technician
--- NOTE | 2021-06-12 12:44 | PC.NURSE ---
Pt to CT
--- NOTE | 2021-06-12 13:33 | HMH.EDFALL ---
ED Disposition Clinical Impression: Forehead contusion Qualifiers: Encounter type: initial encounter Qualified Code(s): S00.83XA - Contusion of other part of head, initial encounter Disposition: Home, Self-Care Condition on Discharge: Good Instructions: Contusion Additional Instructions: follow up pcp, return for worse Referrals: Suman Bell [Primary Care Provider] - - Critical Care Critical Care Time: No Attestation: On 06/12/21, the high probability of a clinically significant, sudden or life threatening deterioration of the following system(s) required my full and direct attention, intervention and personal management. The time I documented below is in addition to time spent performing reported procedures but includes the following listed in this critical care notation. Medical Decision Making - Medical Records Medical records reviewed: Yes: I reviewed the patient's medical records. - Emmanuel Inquiry Pt receiving controlled substance: No Vital Signs: 06/12/21 12:15 06/12/21 13:46 Temperature 97.9 F Temperature Source Oral Pulse Rate [Right Radial] 55 L Respiratory Rate 18 Blood Pressure 148/68 H Blood Pressure [Right Arm] 194/77 H Blood Pressure Mean [Right Arm] 116 Blood Pressure Source [Right Arm] Automatic Cuff Blood Pressure Position [Right Arm] Sitting 02 Sat by Pulse Oximetry 98 97 Oxygen Delivery Method Room Air Room Air Fall HPI - General Chief Complaint: Fall Stated Complaint: a/o 06/12 fall hit head Time Seen by Provider: 06/12/21 13:33 Mode of Arrival: Ambulatory Limitations: No Limitations Description of Symptoms (Recalled from ER Triage Doc. by RN): Pt states that she has been having problems with her BP being elevated, causing her to become dizzy when she stands up. Pt states that when she stood up this morning, she become dizzy and fell, hitting her forehead on the hardwood floor. Pt has a knot and bruising above rt eye. - History of Present Illness HPI Narrative: fall lost balance, from standing at home today, no cp/arellano/dizzy Fall from: standing Place fall occurred: home Loss of consciousness: none Prolonged down time: no Location of injury: other (forehead) Severity: mild Quality: dull Associated symptoms (after fall): denies - Related Data Home Medications Medication Instructions Recorded Confirmed Aspirin [Aspirin 81mg EC Tab] 81 mg PO DAILY 05/09/19 06/02/21 Atorvastatin Calcium [Lipitor 20mg 20 mg PO DAILY 05/09/19 06/02/21 Tab] Cyanocobalamin (Vitamin B-12) 1,000 mcg PO DAILY 05/09/19 06/02/21 [Vitamin B-12] Gabapentin 600 mg PO BID 05/09/19 06/02/21 Levothyroxine Sodium [Synthroid 50 mcg PO DAILY 05/09/19 06/02/21 50mcg (0.05mg) tab] Potassium Chloride 20 meq PO DAILY 05/09/19 06/02/21 carboxymethylcellulose 0.5 1 drp OPHTHALMIC QHS 07/13/19 06/02/21 %-glycerin 0.9 % eye drops diphenhydramine 25 1 tab PO QHS PRN 07/13/19 06/02/21 mg-acetaminophen 500 mg tablet dalfampridine 10 mg 10 mg PO Q12H 09/01/20 06/02/21 tablet,extended release,12 hr diphenhydramine HCl 25 mg capsule 25 mg PO HS PRN 09/01/20 06/02/21 interferon beta-1b 0.3 mg 0.5 ml SQ Q OTHER DAY each 09/01/20 06/02/21 subcutaneous kit melatonin 5 mg tablet 5 mg PO HS PRN 09/01/20 06/02/21 Albuterol Sulfate [Proventil Hfa] 6.7 gm IH Q2H 01/31/21 06/02/21 furosemide 40 mg tablet 40 mg PO DAILY PRN tab 03/30/21 06/02/21 sertraline 100 mg tablet 50 mg PO BID tab 03/30/21 06/02/21 spironolactone 25 mg tablet 25 mg PO DIRECTED tab 03/30/21 06/02/21 Previous Rx's Medication Instructions Recorded Ondansetron [Zofran 4mg ODT] 4 mg PO TIDP PRN #12 tab 01/28/21 metoprolol succinate 25 mg 25 mg PO QDAY #90 tab 04/18/21 tablet,extended release 24 hr midodrine 5 mg tablet 5 mg PO TID #90 tab 04/18/21 Allergies Allergy/AdvReac Type Severity Reaction Status Date / Time No Known Allergies Allergy Verified 06/02/21 13:51 [facility] History - He
[2021-06-12 13:46] VITALS: BP 148/68; O2SAT 97
--- NOTE | 2021-06-12 14:06 | PC.NURSE ---
Update given to family
[2021-06-12 14:49] VITALS: BP 136/83; PULSE 57; RESP 16; TEMP 36.6; O2SAT 99
== END 2021-06-12 14:52 | disposition home or self-care (01) ==
PROVIDERS: Emergency Provider Emergency Medicine; PCP Internal Medicine
DX: S00.83XA Contusion of other part of head, initial encounter (principal); W01.0XXA Fall on same level from slipping, tripping and stumbling without subsequent striking against object, initial encounter; Y92.019 Unspecified place in single-family (private) house as the place of occurrence of the external cause; I10 Essential (primary) hypertension; E78.5 Hyperlipidemia, unspecified; Z87.891 Personal history of nicotine dependence; Z79.899 Other long term (current) drug therapy
CPT/HCPCS: 70450; 72125; 99282

== ENCOUNTER → 2021-06-30 14:02 | Outpatient (CLI) | payer MEDICARE, BC, SELFPAY ==
[2021-06-30 15:22] LABS: Blood Urea Nitrogen 27 mg/dl (7-17); Estimated Glomerular Filt Rate 55 ml/min (>60); GFR (African American) 66 ML/MIN (>60)
== END ==
PROVIDERS: PCP Internal Medicine; Visit Provider Psychiatry & Neurology Neurology
DX: G35 Multiple sclerosis (principal)
CPT/HCPCS: 36415; 82565; 84520

== ENCOUNTER → 2021-07-06 12:47 | Outpatient (CLI) | payer MEDICARE, BC, SELFPAY ==
--- NOTE | 2021-07-06 12:51 | MR_ITS ---
FINAL REPORT CLINICAL HISTORY: MULTIPLE SCLEROSIS. FALLING FREQUENTLY. HX MS. WEIGHT LOSS, DIZZINSS AND WEAKNESS IN BILATERAL LEGS X6 MONTHS. 10ML PROHANCE GIVEN. PRIOR MR 02-25-20 COMPARISON: February 25, 2020 FINDINGS: Multiplanar MR imaging of the brain was performed without and with contrast. There are small defects of the corpus callosum. There is extensive confluent abnormal signal in the periventricular white matter similar to the prior exam probably due to underlying demyelination. There is no evidence of intracranial hemorrhage or mass. No abnormal extra-axial fluid collection is seen. The ventricular size is within normal limits. There is no evidence of shift of the midline structures. The posterior fossa and brainstem have an unremarkable appearance. No area of abnormal restricted diffusion is identified. No abnormal contrast enhancement is seen. Normal major vessel vascular flow voids are noted. IMPRESSION: Extensive confluent abnormal signal in the periventricular white matter stable from the prior exam probably due to demyelination. Reviewed, Interpreted and Dictated by Flako Smiley MD Transcribed by Rian Freedman Authenticated by Flako Smiley MD on 07/06/2021 03:59:04 PM [facility]
== END ==
PROVIDERS: PCP Internal Medicine; Visit Provider Psychiatry & Neurology Neurology
DX: G35 Multiple sclerosis (principal)
CPT/HCPCS: 70553; A9576

== ENCOUNTER → 2021-08-23 11:13 | Outpatient (CLI) | payer MEDICARE, BC, SELFPAY ==
[2021-08-23 12:03] LABS: Basophils % 0.5 % (0.1-2.0); Eosinophils # 0.1 K/mm3 (0.0-0.4); Eosinophils % 1.1 % (0.1-12.0); Hematocrit 44.1 % (37.0-47.0); Hemoglobin 13.9 g/dL (12.2-16.2); Lymphocytes # 1.7 K/mm3 (0.7-4.5); Lymphocytes % 27.4 % (10-50); Mean Corpuscular HGB Conc 31.6 g/dL (31.8-35.4); Mean Corpuscular Hemoglobin 33.4 pg (27.0-31.2); Mean Corpuscular Volume 105.8 fl (81-99); Mean Platelet Volume 8.9 fl (7.4-10.4); Monocytes # 0.5 K/mm3 (0.1-1.0); Monocytes % 7.7 % (1.7-9.3); Neutrophils % 63.3 % (37.0-80.0); Platelet Count 166 K/mm3 (142-424); Red Blood Count 4.16 M/mm3 (4.20-5.40); Red Cell Distribution Width 15.2 % (11.5-17.5); White Blood Count 6.2 K/mm3 (4.8-10.8)
[2021-08-23 12:45] LABS: Chloride 107 mmol/L (98-107); Sodium 143 mmol/L (136-145)
[2021-08-23 12:48] LABS: Alanine Aminotransferase 21 U/L (12-78); Albumin Level 4.3 g/dl (3.5-5.0); Albumin/Globulin Ratio 1.6 (1.1-1.8); Alkaline Phosphatase 43 U/L (38-126); Aspartate Amino Transferase 31 U/L (14-36); Bilirubin,Total 0.7 mg/dl (0.2-1.3); Blood Urea Nitrogen 31 mg/dl (7-17); Calcium 9.2 mg/dl (8.4-10.2); Carbon Dioxide 25 mmol/L (22.0-30.0); Cholesterol 152 mg/dl (140-200); Estimated Glomerular Filt Rate 37 ml/min (>60); GFR (African American) 45 ML/MIN (>60); Globulin 2.7 g/dL (1.3-3.2); Glucose 82 mg/dl (74-100); HDL Cholesterol 51 mg/dl (40-60); Triglycerides 202 mg/dl (30-150); VLDL Cholesterol 40 mg/dL (0-40)
[2021-08-23 13:05] LABS: Free T4 (Free Thyroxine) 1.57 ng/dl (0.78-2.19)
[2021-08-23 13:20] LABS: Thyroid Stimulating Hormone 3.77 uIU/mL (0.465-4.68)
[2021-08-23 14:03] LABS: Reticulocyte % (Auto) 1.6 % (0.9-3.2)
[2021-08-23 15:29] LABS: Vitamin B12 587 pg/mL (239-931)
[2021-08-23 15:37] LABS: Folate > 20.00 ng/mL
== END ==
PROVIDERS: Visit Provider Internal Medicine
DX: E03.9 Hypothyroidism, unspecified (principal); I10 Essential (primary) hypertension; E78.5 Hyperlipidemia, unspecified; G35 Multiple sclerosis
CPT/HCPCS: 36415; 80053; 80061; 82533; 82607; 82746; 84439; 84443; 85025; 85044

== ENCOUNTER → 2021-09-15 10:48 | Outpatient (CLI) | payer MEDICARE, BC, SELFPAY ==
[2021-09-15 11:39] LABS: Carbon Dioxide 29 mmol/L (22.0-30.0); Chloride 108 mmol/L (98-107); Potassium 3.4 mmoL/L (3.5-5.1)
[2021-09-15 11:45] LABS: Anion Gap 10.4 mEq/L (5-15); Blood Urea Nitrogen 26 mg/dl (7-17); Calcium 9.4 mg/dl (8.4-10.2); Estimated Glomerular Filt Rate 62 ml/min (>60); GFR (African American) 74 ML/MIN (>60); Glucose 108 mg/dl (74-100); Sodium 144 mmol/L (136-145)
== END ==
PROVIDERS: Visit Provider Internal Medicine
DX: I95.1 Orthostatic hypotension (principal)
CPT/HCPCS: 36415; 80048

== ENCOUNTER 2021-09-21 17:17 | Inpatient (IN) | payer MEDICARE, BC, SELFPAY ==
[2021-09-21] VITALS (11 sets, daily range): BP systolic 113–241; BP diastolic 60–102; PULSE 67–76; RESP 18–22; TEMP 36.4–37.9; O2SAT 90–99; BMI 18.1; BMI 17.3
--- NOTE | 2021-09-21 17:29 | CT_ITS ---
PROCEDURE INFORMATION: Exam: CT Head Without Contrast Exam date and time: 09/21/21 05:36 PM Age: 71 years old Clinical indication: Injury or trauma; Fall; Blunt trauma (contusions or hematomas) TECHNIQUE: Imaging protocol: Computed tomography of the head without contrast. Radiation optimization: All CT scans at this facility use at least one of these dose optimization techniques: automated exposure control; mA and/or kV adjustment per patient size (includes targeted exams where dose is matched to clinical indication); or iterative reconstruction. Other technique: STROKE PROTOCOL was implemented. COMPARISON: MR HEAD/BRAIN WO/W CON 07/06/21 01:02 PM FINDINGS: Brain: Periventricular and subcortical small vessel ischemic changes. Severe atrophy associated, much more than expected for age. No acute hemorrhage, mass effect, midline shift, or extra-axial fluid collection. Cerebral ventricles: No ventriculomegaly. Paranasal sinuses: Visualized sinuses are unremarkable. No fluid levels. Mastoid air cells: Visualized mastoid air cells are well aerated. Bones/joints: Unremarkable. No acute fracture. Soft tissues: Unremarkable. IMPRESSION: No acute traumatic intracranial abnormality. Severe small vessel disease with atrophy much worse than expected for age ASSESSMENT: ASPECTS ([place] Stroke Program Early CT Score) is 10.
--- NOTE | 2021-09-21 17:29 | CT_ITS ---
PROCEDURE INFORMATION: Exam: CT Cervical Spine Without Contrast Exam date and time: 09/21/21 05:40 PM Age: 71 years old Clinical indication: Injury or trauma; Fall; Blunt trauma TECHNIQUE: Imaging protocol: Computed tomography images of the cervical spine without contrast. Radiation optimization: All CT scans at this facility use at least one of these dose optimization techniques: automated exposure control; mA and/or kV adjustment per patient size (includes targeted exams where dose is matched to clinical indication); or iterative reconstruction. COMPARISON: CT CERVICAL SPINE WO CON 06/12/21 12:43 PM FINDINGS: Vertebrae: No acute fracture. Normal alignment. C2-C3: No significant disc protrusion. No severe spinal canal stenosis. No significant neural foraminal narrowing. C3-C4: No significant disc protrusion. No severe spinal canal stenosis. No significant neural foraminal narrowing. C4-C5: No significant disc protrusion. No severe spinal canal stenosis. No significant neural foraminal narrowing. C5-C6: No significant disc protrusion. No severe spinal canal stenosis. No significant neural foraminal narrowing. C6-C7: No significant disc protrusion. No severe spinal canal stenosis. No significant neural foraminal narrowing. C7-T1: No significant disc protrusion. No severe spinal canal stenosis. No significant neural foraminal narrowing. Soft tissues: Unremarkable. Lungs: Lung apices are normal. IMPRESSION: No acute findings.
--- NOTE | 2021-09-21 17:32 | PC.NURSE ---
notified rad of CT orders, spoke with Monica
--- NOTE | 2021-09-21 17:35 | PC.NURSE ---
patient to radiology with systems test technician by paul
--- NOTE | 2021-09-21 17:40 | PC.NURSE ---
pt reports pt has not been acting her normal todays, states she was incontinent on herself and when he has asked her to do tasks like moving her arms when he was cleaning her he didn't feel like she was responding per her normal.
--- NOTE | 2021-09-21 17:56 | PC.NURSE ---
pt CT scans changed to stroke protocol after obtaining more information from family, spoke with ady in CT she is going to contact virtual rad staff.
--- NOTE | 2021-09-21 18:12 | PC.NURSE ---
dr darling spoke with virtual rad
[2021-09-21 18:16] LABS: Basophils # 0.1 K/mm3 (0-0.2); Basophils % 0.9 % (0.1-2.0); Eosinophils # 0.2 K/mm3 (0.0-0.4); Eosinophils % 1.5 % (0.1-12.0); Hematocrit 43.5 % (37.0-47.0); Hemoglobin 14.1 g/dL (12.2-16.2); Lymphocytes # 1.3 K/mm3 (0.7-4.5); Lymphocytes % 8.9 % (10-50); Mean Corpuscular HGB Conc 32.5 g/dL (31.8-35.4); Mean Corpuscular Hemoglobin 33.9 pg (27.0-31.2); Mean Corpuscular Volume 104.4 fl (81-99); Monocytes # 0.5 K/mm3 (0.1-1.0); Monocytes % 3.3 % (1.7-9.3); Neutrophils # 12.5 K/mm3 (1.8-7.8); Neutrophils % 85.2 % (37.0-80.0); Platelet Count 213 K/mm3 (142-424); Red Blood Count 4.17 M/mm3 (4.20-5.40); Red Cell Distribution Width 15.5 % (11.5-17.5); White Blood Count 14.6 K/mm3 (4.8-10.8)
[2021-09-21 18:24] LABS: Chloride 108 mmol/L (98-107); Potassium 3.9 mmoL/L (3.5-5.1); Sodium 143 mmol/L (136-145)
[2021-09-21 18:26] LABS: Alanine Aminotransferase 26 U/L (12-78); Aspartate Amino Transferase 45 U/L (14-36); Blood Urea Nitrogen 18 mg/dl (7-17); Creatinine Clearance Estimated 41 mL/min (50-200); Estimated Glomerular Filt Rate 71 ml/min (>60); GFR (African American) 85 ML/MIN (>60)
[2021-09-21 18:27] LABS: Albumin Level 4.2 g/dl (3.5-5.0); Albumin/Globulin Ratio 1.3 (1.1-1.8); Alkaline Phosphatase 51 U/L (38-126); Anion Gap 14.9 mEq/L (5-15); Carbon Dioxide 24 mmol/L (22.0-30.0); Globulin 3.3 g/dL (1.3-3.2); Glucose 132 mg/dl (74-100); Total Protein,Serum 7.5 g/dl (6.3-8.2)
[2021-09-21 18:29] LABS: Activated Partial Thrombo Time 24.3 seconds (22.8-30.6); INR 1.06 (0.9-1.1); Prothrombin Time 11.9 seconds (10.1-12.5)
[2021-09-21 18:32] LABS: MANUAL DIFFERENTIAL MANUAL DIFFERENTIAL (MANUAL DIFF)
--- NOTE | 2021-09-21 18:36 | CT_ITS ---
PROCEDURE INFORMATION: Exam: CT Angiography Head With Contrast, Arteriography Exam date and time: 09/21/21 07:04 PM Age: 71 years old Clinical indication: Weakness; Additional info: Weakness, elevated BP TECHNIQUE: Imaging protocol: Computed tomography angiography of the head with contrast. Exam focused on the arteries. 3D rendering (Not supervised by radiologist): MIP and/or 3D reconstructed images were created by the technologist. Radiation optimization: All CT scans at this facility use at least one of these dose optimization techniques: automated exposure control; mA and/or kV adjustment per patient size (includes targeted exams where dose is matched to clinical indication); or iterative reconstruction. Contrast material: ISOVUE 370; Contrast volume: 100 ml; Contrast route: INTRAVENOUS (IV); COMPARISON: CT HEAD/BRAIN WO CON 09/21/21 05:36 PM FINDINGS: ANTERIOR CIRCULATION: Right internal carotid artery: Unremarkable. Intracranial segment is patent with no significant stenosis. No aneurysm. Right middle cerebral artery: Unremarkable. No occlusion or significant stenosis. No aneurysm. Right anterior cerebral artery: Unremarkable. No occlusion or significant stenosis. No aneurysm. Left internal carotid artery: Unremarkable. Intracranial segment is patent with no significant stenosis. No aneurysm. Left middle cerebral artery: Unremarkable. No occlusion or significant stenosis. No aneurysm. Left anterior cerebral artery: Unremarkable. No occlusion or significant stenosis. No aneurysm. POSTERIOR CIRCULATION: Right vertebral artery: Unremarkable. No occlusion or significant stenosis. No aneurysm. Left vertebral artery: Unremarkable. No occlusion or significant stenosis. No aneurysm. Basilar artery: Unremarkable. No occlusion or significant stenosis. No aneurysm. Right posterior cerebral artery: Unremarkable. No occlusion or significant stenosis. No aneurysm. Left posterior cerebral artery: Unremarkable. No occlusion or significant stenosis. No aneurysm. Brain: No definite mass, mass effect, or midline shift. Severe small vessel disease. Cerebral ventricles: No ventriculomegaly. Bones/joints: Unremarkable. No acute fracture. Soft tissues: Unremarkable. IMPRESSION: No large vessel stenosis or occlusion.
--- NOTE | 2021-09-21 18:36 | CT_ITS ---
PROCEDURE INFORMATION: Exam: CT Angiography Neck With Contrast Exam date and time: 09/21/21 07:04 PM Age: 71 years old Clinical indication: Weakness; Additional info: Weakness, elevated BP TECHNIQUE: Imaging protocol: Computed tomography angiography of the neck with contrast. 3D rendering (Not supervised by radiologist): MIP and/or 3D reconstructed images were created by the technologist. Radiation optimization: All CT scans at this facility use at least one of these dose optimization techniques: automated exposure control; mA and/or kV adjustment per patient size (includes targeted exams where dose is matched to clinical indication); or iterative reconstruction. Contrast material: ISOVUE 370; Contrast volume: 100 ml; Contrast route: INTRAVENOUS (IV); COMPARISON: CT CERVICAL SPINE WO CON 09/21/21 05:40 PM FINDINGS: Right common carotid artery: No stenosis. No dissection or occlusion. Right internal carotid artery: Mild stenosis of the extracranial segment. 40% by NASCET criteria. No dissection or occlusion. Right external carotid artery: No occlusion or stenosis of the origin. Left common carotid artery: No stenosis. No dissection or occlusion. Left internal carotid artery: Mild stenosis of the extracranial segment. 30% by NASCET criteria. No dissection or occlusion. Left external carotid artery: No occlusion or stenosis of the origin. Right vertebral artery: No stenosis. No dissection or occlusion. Left vertebral artery: No stenosis. No dissection or occlusion. Soft tissues: Normal. No significant soft tissue swelling. Bones/joints: No acute fracture. IMPRESSION: 1. Mild right ICA stenosis 40% by NASCET criteria. 2. Mild left ICA stenosis 30% by NASCET criteria. REFERENCES: NASCET CRITERIA. The degree of internal carotid artery stenosis is based on NASCET criteria. Normal is no stenosis. Mild is less than 50% stenosis. Moderate is 50-69% stenosis. Severe is 70% to 99% stenosis. Total occlusion is no detectable patent lumen.
[2021-09-21 18:37] LABS: NT Pro Brain Natriuretic Pep. 8280 pg/mL (0-125)
[2021-09-21 18:39] LABS: Troponin I 0.04 ng/ml (0.00-0.034)
--- NOTE | 2021-09-21 18:42 | HMH.EDGENADL ---
ED Disposition Condition on Discharge: Fair - Critical Care Critical Care Time: No <Ralph Dan - Last Filed: 09/21/21 19:42> <Valentin Polo - Last Filed: 09/21/21 22:46> Clinical Impression: Hypertensive emergency Accidental fall Qualifiers: Encounter type: initial encounter Qualified Code(s): W19.XXXA - Unspecified fall, initial encounter UTI (urinary tract infection) Qualifiers: Urinary tract infection type: site unspecified Hematuria presence: without hematuria Qualified Code(s): N39.0 - Urinary tract infection, site not specified Congestive heart failure Qualifiers: Heart failure type: diastolic Heart failure chronicity: acute on chronic Qualified Code(s): I50.33 - Acute on chronic diastolic (congestive) heart failure Disposition: Admitted As Inpatient Attestation: On 09/21/21, the high probability of a clinically significant, sudden or life threatening deterioration of the following system(s) required my full and direct attention, intervention and personal management. The time I documented below is in addition to time spent performing reported procedures but includes the following listed in this critical care notation. Medical Decision Making - Medical Records Medical records reviewed: Yes: I reviewed the patient's medical records. - Emmanuel Inquiry Pt receiving controlled substance: No - Lab Data Result diagrams: 09/21/21 18:00 09/21/21 18:00 - CT Data CT Scan: Head, C-Spine Time Received: 19:[address] Reviewed: Yes: I have reviewed the patient's CT results, I have viewed the radiologist's interpretation - Reevaluation(s) Time: 19:44 <Ralph Dan - Last Filed: 09/21/21 19:42> - Lab Data Lab results reviewed: Yes: I reviewed the patient's lab results. Result diagrams: 09/21/21 18:00 09/21/21 18:00 - Radiology Data #1 Image(s): Chest, Pelvis Image Reviewed: Yes I have reviewed radiologist's interpretation Preliminary Findings: No Fracture Seen - ECG Data Tracing #1 Normal Sinus Rhythm: Yes Ischemic changes: non-specific ST-T wave changes <Valentin Polo - Last Filed: 09/21/21 22:46> Vital Signs: 09/21/21 17:16 09/21/21 17:30 09/21/21 18:06 Temperature 97.5 F L Temperature Source Oral Pulse Rate 70 72 Pulse Rate [Right Radial] 73 Respiratory Rate 18 Blood Pressure 229/99 H 233/101 H Blood Pressure [Right Arm] 241/102 H Blood Pressure Mean Blood Pressure Mean [Right Arm] 148 Blood Pressure Source Automatic Cuff Blood Pressure Source [Right Arm] Automatic Cuff Blood Pressure Position [Right Arm] Supine 02 Sat by Pulse Oximetry 94 L 90 L 93 L Oxygen Delivery Method Room Air Room Air Room Air Oxygen Flow Rate (LPM) 09/21/21 18:15 09/21/21 18:30 09/21/21 20:14 Temperature Temperature Source Pulse Rate 67 72 Pulse Rate [Right Radial] Respiratory Rate Blood Pressure 219/90 H 151/75 H 176/89 H Blood Pressure [Right Arm] Blood Pressure Mean Blood Pressure Mean [Right Arm] Blood Pressure Source Automatic Cuff Blood Pressure Source [Right Arm] Blood Pressure Position [Right Arm] 02 Sat by Pulse Oximetry 93 L 99 Oxygen Delivery Method Room Air Room Air Oxygen Flow Rate (LPM) 09/21/21 21:15 09/21/21 22:00 09/21/21 22:22 Temperature 100.2 F H Temperature Source Rectal Pulse Rate 75 Pulse Rate [Right Radial] Respiratory Rate 22 21 22 Blood Pressure 117/66 131/63 Blood Pressure [Right Arm] Blood Pressure Mean 82 Blood Pressure Mean [Right Arm] Blood Pressure Source Blood Pressure Source [Right Arm] Blood Pressure Position [Right Arm] 02 Sat by Pulse Oximetry 94 L 96 Oxygen Delivery Method Nasal Cannula Nasal Cannula Oxygen Flow Rate (LPM) 2 2 09/21/21 22:30 Temperature Temperature Source Pulse Rate 73 Pulse Rate [Right Radial] Respiratory Rate 21 Blood Pressure 113/61 Blood Pressure [Right Arm] Blood Pressure Mean Blood Pressure
--- NOTE | 2021-09-21 19:00 | PC.NURSE ---
shift change report given to capricern
--- NOTE | 2021-09-21 19:15 | PC.NURSE ---
Updated pt family in the waiting with permission of pt and pt pt family is concerned that pt is at [facility] and we do not have neurology available, pt was brought to [facility] ER per pelon ems. Explained to family that [facility] does coordinated stroke care with when needed (pt family is concerned about pt having a stroke). Pt family did seem to be okay with explanation of the pt current POC at this time. Have notified ER MD that they had multiple questions about pt POC and I have explained to them that we are obtained more imaging and will determine more definitive POC after that imaging.
[2021-09-21 19:35] LABS: Anisocytosis 1+; Eosinophils % 1 % (0-3); Lymphocytes % 12 % (10-50); Macrocytosis 1+; Monocytes % 6 % (2-9); Neutrophils % 80 % (42-76); Platelet Estimate Normal; Total Cells Counted 100
[2021-09-21 20:54] LABS: Coronavirus 19, PCR Not Detected (NotDetected); Influenza A, PCR Not Detected (NotDetected); Influenza B, PCR Not Detected (NotDetected)
--- NOTE | 2021-09-21 21:37 | XR_ITS ---
PROCEDURE INFORMATION: Exam: XR Chest Exam date and time: 09/21/21 09:39 PM Age: 71 years old Clinical indication: Shortness of breath; Additional info: SOA TECHNIQUE: Imaging protocol: XR of the chest. Views: 1 view. COMPARISON: CR XR CHEST PORTABLE 01/28/21 11:55 AM FINDINGS: Lungs: Left lower lobe infiltrate new from comparison. Pleural spaces: Unremarkable. No pleural effusion. No pneumothorax. Heart/Mediastinum: Unremarkable. No cardiomegaly. Bones/joints: Unremarkable. IMPRESSION: Left lower lobe infiltrate new from comparison.
[2021-09-21 21:38] LABS: Troponin I 0.05 ng/ml (0.00-0.034)
[2021-09-21 21:39] LABS: Microscopic, Urine URINE MICROSCOPIC (MICROSCOPIC)
[2021-09-21 21:53] LABS: Appearance,Urine CLOUDY (Clear); Bilirubin,Urine Negative (Negative); Blood, Urine TRACE-I (Negative); Color,Urine YELLOW (Yellow); Glucose,Urine (UA) Negative (Negative); Ketones,Urine 1+ (Negative); Leukocyte Esterase,Urine Negative (Negative); Nitrate,Urine POSITIVE (Negative); PH,Urine 5.5 (5.0-8.5); Protein,Urine 3+ (Negative); Urobilinogen,Urine 0.2 EU/dl (0.2)
[2021-09-21 22:08] LABS: Bacteria,Urine 4+ /lpf
[2021-09-21 22:22] LABS: Lactic Acid 1.7 mmol/L (0.7-2.1)
--- NOTE | 2021-09-21 22:22 | XR_ITS ---
PROCEDURE INFORMATION: Exam: XR Pelvis Exam date and time: 09/21/21 10:24 PM Age: 71 years old Clinical indication: Injury or trauma; Fall; Blunt trauma (contusions or hematomas); Bilateral; Pelvic region TECHNIQUE: Imaging protocol: XR pelvis. Views: 1 or 2 view. COMPARISON: CR XR HIP RT 2-3V W/PELVIS 08/29/20 10:53 AM FINDINGS: Bones/joints: Unremarkable. No acute fracture. Soft tissues: Contrast in the bladder, concern for small amount of contrast leaking into the pelvis. Consider CT. Organs: Ohara catheter in the bladder. IMPRESSION: 1. Contrast in the bladder, concern for small amount of contrast leaking into the pelvis. 2. Consider unenhanced CT pelvis.
--- NOTE | 2021-09-21 22:25 | PC.NURSE ---
Adjusted bed for pt comfort
--- NOTE | 2021-09-21 22:31 | PC.NURSE ---
supervisor liquid yeast notified of pt admission and need for bed assignment
--- NOTE | 2021-09-21 23:16 | CT_ITS ---
PROCEDURE INFORMATION: Exam: CT Abdomen And Pelvis Without Contrast Exam date and time: 09/21/21 11:25 PM Age: 71 years old Clinical indication: Abnormal findings; Abnormal radiologic finding of the abdomen; Radiologic exam and body structure: Pelvis xray; Additional info: Abnormal result TECHNIQUE: Imaging protocol: Computed tomography of the abdomen and pelvis without contrast. Radiation optimization: All CT scans at this facility use at least one of these dose optimization techniques: automated exposure control; mA and/or kV adjustment per patient size (includes targeted exams where dose is matched to clinical indication); or iterative reconstruction. COMPARISON: CR XR PELVIS 1-2V 09/21/21 10:24 PM FINDINGS: Tubes, catheters and devices: Ohara catheter in place. Lungs: Basilar subsegmental atelectasis. Pleural spaces: Bilateral pleural effusions. Heart: No significant coronary calcifications. No cardiomegaly. No significant pericardial effusion. Liver: Normal. No mass. Gallbladder and bile ducts: Cholecystectomy. No ductal dilation. Pancreas: Normal. No ductal dilation. Spleen: Normal. No splenomegaly. Adrenal glands: Normal. No mass. Kidneys and ureters: Normal. No hydronephrosis. Stomach and bowel: Unremarkable. No obstruction. No mucosal thickening. Appendix: No evidence of appendicitis. Intraperitoneal space: Unremarkable. No free air. No significant fluid collection. Retroperitoneal space: No significant retroperitoneal inflammatory changes are noted. Vasculature: Unremarkable. No abdominal aortic aneurysm. Lymph nodes: Unremarkable. No enlarged lymph nodes. Urinary bladder: No CT evidence of bladder leak. Contrast noted in the bladder. Reproductive: Unremarkable as visualized. Bones/joints: Unremarkable. No acute fracture. Soft tissues: Unremarkable. IMPRESSION: No CT evidence of bladder leak.
--- NOTE | 2021-09-21 23:28 | PC.NURSE ---
pt in ct
--- NOTE | 2021-09-21 23:28 | PC.NURSE ---
1st attempt to call report no answer @[phone]
[2021-09-22] VITALS (10 sets, daily range): BP systolic 123–155; BP diastolic 52–76; PULSE 60–79; RESP 16–18; TEMP 36.4–37.5; O2SAT 89–97; BMI 17.2
--- NOTE | 2021-09-22 00:30 | PC.NURSE ---
pt admitted to room 215 from ED, pt's with her, but will be going home for night; pt oriented to self and , pt has no drift but shaky bilateral upper extremities and weak bilateral lower extremities, pt has slurred speech but says is pt's baseline, pt with nystagmus that says is new, pupils equal at 2mm but fixed and cataracts noted, pt restless and picking constantly and needs redirection frequently, VSS, will continue to monitor
--- NOTE | 2021-09-22 00:47 | PC.NURSE ---
pt arrived to floor via stretcher at 0035
[2021-09-22 00:52] LABS: Troponin I 0.05 ng/ml (0.00-0.034)
[2021-09-22 05:55] LABS: Basophils # 0.1 K/mm3 (0-0.2); Basophils % 0.6 % (0.1-2.0); Eosinophils # 0.1 K/mm3 (0.0-0.4); Eosinophils % 1.2 % (0.1-12.0); Hematocrit 35.2 % (37.0-47.0); Lymphocytes % 18.6 % (10-50); Mean Corpuscular HGB Conc 32.4 g/dL (31.8-35.4); Mean Corpuscular Hemoglobin 33.8 pg (27.0-31.2); Mean Corpuscular Volume 104.3 fl (81-99); Mean Platelet Volume 8.6 fl (7.4-10.4); Monocytes # 0.6 K/mm3 (0.1-1.0); Monocytes % 5.8 % (1.7-9.3); Neutrophils # 7.8 K/mm3 (1.8-7.8); Neutrophils % 73.9 % (37.0-80.0); Platelet Count 149 K/mm3 (142-424); Red Blood Count 3.37 M/mm3 (4.20-5.40); Red Cell Distribution Width 15.4 % (11.5-17.5); White Blood Count 10.6 K/mm3 (4.8-10.8)
[2021-09-22 06:10] LABS: Hemoglobin 11.4 g/dL (12.2-16.2)
[2021-09-22 06:21] LABS: Anion Gap 15.9 mEq/L (5-15); Blood Urea Nitrogen 23 mg/dl (7-17); Calcium 9.3 mg/dl (8.4-10.2); Carbon Dioxide 21 mmol/L (22.0-30.0); Chloride 107 mmol/L (98-107); Creatinine Clearance Estimated 36 mL/min (50-200); Estimated Glomerular Filt Rate 49 ml/min (>60); GFR (African American) 59 ML/MIN (>60); Glucose 91 mg/dl (74-100); Magnesium 1.5 mg/dl (1.6-2.3); Potassium 3.9 mmoL/L (3.5-5.1); Sodium 140 mmol/L (136-145)
--- NOTE | 2021-09-22 08:00 | CA_ITS ---
APPROVED REPORT EXAM: Comprehensive 2D, Doppler, and color-flow Echocardiogram Complaint Investigator: Abby Murcia CRT Ht: 5 ft 6 in Wt: 7lbs BSA: 0.48 BP: 113/61 mmHg Indications: Congestive Heart Failure, Shortness of Breath, CAD, Hyperlipidemia, Hypertension/HDD, UTI, MS 2D Dimensions LVOT 1.72 cm (M/F) 1.5-2.5 LA Volume 35.90 mL LA Volume Index 74.80 mL/m2 (M/F) 16-34 M-Mode Dimensions RVDd 2.45 cm (0.9-2.6) LA Diam 4.22 cm (1.9-4.0) LVDd 3.57 cm (3.5-5.7) Ao Diam 3.12 cm (2.0-3.7) LVDs 1.62 cm (3.5-5.7) IVSd 1.52 cm (0.6-1.1) PWd 0.76 cm (0.6-1.1) EF (Teich) 86.10% FS 54.60% EDV (Teich) 53.30 mL TAPSE 2.02 (<1.7) ESV (Teich) 7.40 mL LV Diastology E Decel Time 150.00 (160-240 msec) E/A Ratio 0.90 MED E' 4.70 (< 7 cm/sec) MED A' 8.50 cm/s E'/MED E' Ratio 15.62 (>14) LAT E' 7.00 (<10 cm/sec) LAT A' 8.50 cm/s E/LAT E' Ratio 10.49 (>14) Aortic Valve AO Peak GR. 10.10 mmHg Mitral Valve MV E Max Malcolm. 73.00 (40-130 cm/s) MV A Velocity 82.00 (40-130 cm/s) E/A Ratio 0.90 MV Decel. Time 150.00 (160-240 ms) MV PHT 44.00 ms Pulmonary Valve PV Peak Velocity 92.00 (50-150 cm/s) Tricuspid Valve TR P. Velocity 376.00 cm/s RAP Estimate 10.00 mmHg RVSP 66.50 mmHg Left Ventricle Left atrium is mildly enlarged, left ventricle is normal size, mild concentric left ventricular hypertrophy, estimated ejection fraction 55% with no regional wall motion abnormality, grade 1 diastolic dysfunction without tissue Doppler evidence of restricted atrial pressure. Right Ventricle Right atrium and right ventricle are normal size and contractility. Aortic Valve Aortic valve is minimally thickened and fibrosed there is no aortic stenosis or aortic insufficiency. Mitral Valve Mitral valve grossly normal, there is trace mitral regurgitation. Tricuspid Valve Tricuspid valve grossly normal, there is trace tricuspid regurgitation, tricuspid regurgitation jet velocity is inadequate for calculation of the right ventricular systolic pressure. Pulmonic Valve Pulmonic valve is poorly visualized. Great Vessels Aortic root is normal size. Inferior vena cava normal size with normal spectral collapse. Pericardium Trivial pericardial effusion noted. Conclusion 1. Mildly enlarged left atrium, normal left ventricular size, mild concentric left ventricular hypertrophy, estimated ejection fraction 55% with no regional wall motion abnormality, grade 1 diastolic dysfunction seen without tissue Doppler evidence of raise left atrial pressure. 2. Trace mitral and tricuspid regurgitation. 3. No significant pericardial effusion noted. 4. Inferior vena cava normal size with normal inspiratory collapse. Electronically signed by : Nolan Stewart MD 09/22/2021 14:53:03
--- NOTE | 2021-09-22 08:22 | HMH.PHAVTE ---
[facility] Pharmacy VTE Monitoring - Patient Demographics Admission date: 09/22/21 Report Date: 09/22/21 Time: 08:22 Allergies/Adverse Reactions: Patient Allergies No Known Allergies Allergy (Verified 06/30/21 13:41) Height: 1.68 m Weight: 48.761 kg Patient Problems: Current Active Problems Congestive heart failure (Acute) UTI (urinary tract infection) (Acute) Accidental fall (Acute) Hypertensive emergency (Acute) - VTE Risk Labs: VTE Related Lab Results Hgb 11.4 g/dL (12.2-16.2) L D 09/22/21 05:40 Hct 35.2 % (37.0-47.0) L 09/22/21 05:40 Plt Count 149 K/mm3 (142-424) D 09/22/21 05:40 PT 11.9 seconds (10.1-12.5) 09/21/21 18:00 INR 1.06 (0.9-1.1) 09/21/21 18:00 APTT 24.3 seconds (22.8-30.6) 09/21/21 18:00 BUN 23 mg/dl (7-17) H D 09/22/21 05:40 Creatinine 1.10 mg/dl (0.52-1.04) H D 09/22/21 05:40 Estimated Creat Clear 36 mL/min (50-200) 09/22/21 05:40 Clinical Trial Participant: No - Prophylaxis VTE Prophylaxis Ordered?: Yes Types of VTE Prophylaxis: TEDS Knee High Location of Applied Device: Right Leg, Left Leg
--- NOTE | 2021-09-22 08:54 | HMH.CNCARD ---
History of Present Illness Consult date: 09/22/21 Requesting physician: Jose Lyles Chief complaint: elevated troponins Additional Medical History:: 1. Hypertension with history of diastolic congestive heart failure 2. Hyperlipidemia 3. Normal coronary arteries, 2020 with evidence of pulmonary hypertension 4. Multiple sclerosis History of present illness: 71-year-old female presented to the emergency department after a fall. Patient is Bedridden due to ms, can get up to wc with assistance,the is the primary caregiver. Pt states she was transferring from the commode to the wheelchair when she fell onto her left side. Hit the left side of her head and been more lethargic since fall. Patient is not ambulatory at baseline, for over 3 weeks per . In ed pt was found to have a uti and left lower lobe infiltrate and admitted for further work up. The above per Breanna Bonilla APRN for Dr. Polo Patient denies any chest pain, pressure or tightness. Cardiology consulted due to mildly elevated troponins and elevated BNP. Patient was found to have UTI along with suspected pneumonia which may be causing demand ischemia and causing mildly elevated troponins. She had normal coronary arteries on cardiac catheterization 2 years ago with evidence of pulmonary hypertension. She does have issues with hypotension which is exacerbated by her MS and is currently being treated with midodrine which is being adjusted by her primary care physician Dr. Bell. [facility] History Medical History: Reports:: Congestive Heart Failure, Hyperlipidemia, Hypertension Denies:: Cancer, Diabetes Mellitus Type 1, Diabetes Mellitus Type 2, Internal Pacemaker, MRSA, Seizures *Have you ever received a pneumonia vaccine?: Yes *Have you received a flu vaccine this season?: Yes Other Medical History: Reports: Thyroid Disease Other Surgeries: Yes: Cardiac Catheterization. No: Pacemaker Amputation: No Fractures: No - *Social History Smoking Status: Former smoker #Yrs smoked (if former smoker): 30 Alcohol Intake: never *Occupational Status:: disabled Housing: house Household Members: spouse *Travel in the last 8 weeks: None Family Hx:: Stroke, Coronary Artery Disease Meds Home Medications Medication Instructions Recorded Confirmed Type Aspirin [Aspirin 81mg EC Tab] 81 mg PO DAILY 05/09/19 06/30/21 History Atorvastatin Calcium [Lipitor 20mg 20 mg PO DAILY 05/09/19 06/30/21 History Tab] Cyanocobalamin (Vitamin B-12) 1,000 mcg PO DAILY 05/09/19 06/30/21 History [Vitamin B-12] Gabapentin 600 mg PO BID 05/09/19 06/30/21 History Levothyroxine Sodium [Synthroid 50 mcg PO DAILY 05/09/19 06/30/21 History 50mcg (0.05mg) tab] Potassium Chloride 20 meq PO DAILY 05/09/19 06/30/21 History carboxymethylcellulose 0.5 1 drp OPHTHALMIC QHS 07/13/19 06/30/21 History %-glycerin 0.9 % eye drops diphenhydramine 25 1 tab PO QHS PRN 07/13/19 06/30/21 History mg-acetaminophen 500 mg tablet dalfampridine 10 mg 10 mg PO Q12H 09/01/20 06/30/21 History tablet,extended release,12 hr diphenhydramine HCl 25 mg capsule 25 mg PO HS PRN 09/01/20 06/30/21 History interferon beta-1b 0.3 mg 0.5 ml SQ Q OTHER DAY each 09/01/20 06/30/21 History subcutaneous kit melatonin 5 mg tablet 5 mg PO HS PRN 09/01/20 06/30/21 History Ondansetron [Zofran 4mg ODT] 4 mg PO TIDP PRN #12 tab 01/28/21 06/30/21 Rx Albuterol Sulfate [Proventil Hfa] 6.7 gm IH Q2H 01/31/21 06/30/21 History furosemide 40 mg tablet 40 mg PO DAILY PRN tab 03/30/21 06/30/21 History sertraline 100 mg tablet 50 mg PO BID tab 03/30/21 06/30/21 History spironolactone 25 mg tablet 25 mg PO DIRECTED tab 03/30/21 06/30/21 History metoprolol succinate 25 mg 25 mg PO QDAY #90 tab 04/18/21 06/30/21 Rx tablet,extended release 24 hr midodrine 5 mg tablet 5 mg PO TID #90 tab 04/18/21 06/30/21 Rx Allergies Allergy/AdvReac Type Severity Reaction Status Date / Time No Known Allergies Allergy Veri
--- NOTE | 2021-09-22 09:32 | HMH.HP ---
*Admission Date: 09/22/21 *Chief complaint: fall *History of present illness: 71-year-old female presented to the emergency department after a fall. Patient is Bedridden due to ms, can get up to wc with assistance,the is the primary caregiver. Pt states she was transferring from the commode to the wheelchair when she fell onto her left side. Hit the left side of her head and been more lethargic since fall. Patient is not ambulatory at baseline, for over 3 weeks per . In ed pt was found to have a uti and left lower lobe infiltrate and admitted for further work up. [facility] History I have reviewed the patient's past medical history: Yes Medical History: Reports:: Congestive Heart Failure, Hyperlipidemia, Hypertension Denies:: Cancer, Diabetes Mellitus Type 1, Diabetes Mellitus Type 2, Internal Pacemaker, MRSA, Seizures *Have you ever received a pneumonia vaccine?: Yes *Have you received a flu vaccine this season?: Yes Other Medical History: Reports: Thyroid Disease Other Surgeries: Yes: Cardiac Catheterization. No: Pacemaker Amputation: No Fractures: No - *Social History Smoking Status: Former smoker #Yrs smoked (if former smoker): 30 Alcohol Intake: never *Occupational Status:: disabled Housing: house Household Members: spouse *Travel in the last 8 weeks: None Family Hx:: Stroke, Coronary Artery Disease Review of Systems - Review of Systems Review of systems:: pertinent systems reviewed and negative unless documented below - Constitutional Reports fatigue, Reports lack of energy, Reports malaise, Denies body ache(s) - Eyes Denies blurry vision - ENT Denies bleeding gums - *Cardiovascular Denies chest pain at rest - *Respiratory Denies shortness of breath with activity - *Gastrointestinal Denies abdominal pain - *Genitourinary Denies difficulty urinating - *Musculoskeletal Denies joint pain - Integumentary/Breasts Denies rash - *Neurologic Reports headache(s) - Psychiatric Denies lack of enjoyment - Endocrine Denies excessive sweating - Hematologic/Lymphatic Denies easy bruising - Allergic/Immunologic Denies itchy eyes Meds Home Medications Medication Instructions Recorded Confirmed Type Aspirin [Aspirin 81mg EC Tab] 81 mg PO DAILY 05/09/19 06/30/21 History Atorvastatin Calcium [Lipitor 20mg 20 mg PO DAILY 05/09/19 06/30/21 History Tab] Cyanocobalamin (Vitamin B-12) 1,000 mcg PO DAILY 05/09/19 06/30/21 History [Vitamin B-12] Gabapentin 600 mg PO BID 05/09/19 06/30/21 History Levothyroxine Sodium [Synthroid 50 mcg PO DAILY 05/09/19 06/30/21 History 50mcg (0.05mg) tab] Potassium Chloride 20 meq PO DAILY 05/09/19 06/30/21 History carboxymethylcellulose 0.5 1 drp OPHTHALMIC QHS 07/13/19 06/30/21 History %-glycerin 0.9 % eye drops diphenhydramine 25 1 tab PO QHS PRN 07/13/19 06/30/21 History mg-acetaminophen 500 mg tablet dalfampridine 10 mg 10 mg PO Q12H 09/01/20 06/30/21 History tablet,extended release,12 hr diphenhydramine HCl 25 mg capsule 25 mg PO HS PRN 09/01/20 06/30/21 History interferon beta-1b 0.3 mg 0.5 ml SQ Q OTHER DAY each 09/01/20 06/30/21 History subcutaneous kit melatonin 5 mg tablet 5 mg PO HS PRN 09/01/20 06/30/21 History Ondansetron [Zofran 4mg ODT] 4 mg PO TIDP PRN #12 tab 01/28/21 06/30/21 Rx Albuterol Sulfate [Proventil Hfa] 6.7 gm IH Q2H 01/31/21 06/30/21 History furosemide 40 mg tablet 40 mg PO DAILY PRN tab 03/30/21 06/30/21 History sertraline 100 mg tablet 50 mg PO BID tab 03/30/21 06/30/21 History spironolactone 25 mg tablet 25 mg PO DIRECTED tab 03/30/21 06/30/21 History metoprolol succinate 25 mg 25 mg PO QDAY #90 tab 04/18/21 06/30/21 Rx tablet,extended release 24 hr midodrine 5 mg tablet 5 mg PO TID #90 tab 04/18/21 06/30/21 Rx Allergies Allergy/AdvReac Type Severity Reaction Status Date / Time No Known Allergies Allergy Verified 06/30/21 13:41 Exam Vital signs and Labs for La
--- NOTE | 2021-09-22 11:56 | HMH.PHAINT ---
home medication list verified using list from [facility]
--- NOTE | 2021-09-22 13:57 | PC.NURSE ---
rounded on patient this morning. no questions or concerns about stay as of now. encouraged to ring out with any questions that may arise as far as meds or plan of care.
--- NOTE | 2021-09-22 15:35 | PC.NURSE ---
Pt has rested well this shift. pt son expressed concern this am that pt is unable to properly focus on individuals. pt has appeared content this shift, resting in bed. pt has been in room with her most of the shift. pt is alert to self and . able to swallow pills whole nad noted, lungs clear, bowel sounds active. pt is and has been nonambulatory for several months per .
[2021-09-23] VITALS (8 sets, daily range): BP systolic 140–190; BP diastolic 55–87; PULSE 65–95; RESP 16–19; TEMP 36.6–38.7; O2SAT 90–98; BMI 17.5
--- NOTE | 2021-09-23 05:03 | PC.NURSE ---
Patient rested well this shift. Patient is oriented to name, , and year, however she states she's currently [place]. Patient became febrile throughout the night with a temp of 101.7F patient medicated per JUL with successful outcome. Patient moving in bed while sleeping also receiving q2hr turns. Bed alarm was activated for patient safety. Ohara catheter in place.
[2021-09-23 08:22] LABS: Basophils % 0.5 % (0.1-2.0); Eosinophils # 0.2 K/mm3 (0.0-0.4); Hematocrit 33.7 % (37.0-47.0); Lymphocytes # 1.2 K/mm3 (0.7-4.5); Lymphocytes % 18.8 % (10-50); Mean Corpuscular HGB Conc 32.6 g/dL (31.8-35.4); Mean Corpuscular Hemoglobin 33.9 pg (27.0-31.2); Mean Corpuscular Volume 104.1 fl (81-99); Mean Platelet Volume 8.9 fl (7.4-10.4); Monocytes # 0.5 K/mm3 (0.1-1.0); Monocytes % 6.9 % (1.7-9.3); Neutrophils # 4.6 K/mm3 (1.8-7.8); Neutrophils % 70.9 % (37.0-80.0); Platelet Count 127 K/mm3 (142-424); Red Blood Count 3.24 M/mm3 (4.20-5.40); Red Cell Distribution Width 15.4 % (11.5-17.5); White Blood Count 6.5 K/mm3 (4.8-10.8)
[2021-09-23 08:31] LABS: Anion Gap 10.2 mEq/L (5-15); Blood Urea Nitrogen 19 mg/dl (7-17); Carbon Dioxide 26 mmol/L (22.0-30.0); Chloride 107 mmol/L (98-107); Creatinine Clearance Estimated 40 mL/min (50-200); Estimated Glomerular Filt Rate 62 ml/min (>60); GFR (African American) 74 ML/MIN (>60); Glucose 80 mg/dl (74-100); Potassium 3.2 mmoL/L (3.5-5.1); Sodium 140 mmol/L (136-145)
--- NOTE | 2021-09-23 12:05 | XR_ITS ---
PROCEDURE INFORMATION: Exam: XR Chest Exam date and time: 09/23/2021 12:22 PM Age: 71 years old Clinical indication: Shortness of breath; Additional info: Pneumonia, patient choked on food earlier today TECHNIQUE: Imaging protocol: XR of the chest. Views: 1 view. COMPARISON: CR XR CHEST PORTABLE 09/21/2021 9:39 PM FINDINGS: The thorax is partially obscured by overlying EKG leads. Lungs: COPD, interstitial prominence, and asymmetric basilar airspace disease. Pleural spaces: Small right pleural effusion. Heart/Mediastinum: No cardiomegaly. Bones/joints: Degenerative change and mild scoliosis. IMPRESSION: 1. COPD, interstitial prominence, and asymmetric basilar airspace disease. 2. Small right pleural effusion.
--- NOTE | 2021-09-23 12:11 | HMH.ACPN2 ---
Internal Medicine - PN: Subj *Date: 09/23/21 *Time: 12:13 Interval history: Patient had an episode earlier this morning where she choked on a ham and cheese and which. He coughed vigorously afterward and has apparently cleared airway. Was febrile overnight, T-max 101.7 Urine culture is growing out E. coli which is sensitive to her current Rocephin. Patient was seen by cardiology for elevated troponins. This was felt to be demand ischemia. Patient is bedbound with MS and is markedly deconditioned. Exam Vital signs and Labs for Last 24 Hours: Temp Pulse Resp BP Pulse Ox 99.2 F 69 19 170/76 H 93 L 09/23/21 08:00 09/23/21 08:00 09/23/21 08:00 09/23/21 08:00 09/23/21 08:00 Laboratory Results - last 24 hr 09/23/21 07:26: WBC 6.5 D, RBC 3.24 L, Hgb 11.0 L, Hct 33.7 L, MCV 104.1 H, MCH 33.9 H, MCHC 32.6, RDW 15.4, Plt Count 127 L, MPV 8.9, Neut % (Auto) 70.9, Lymph % (Auto) 18.8, [place] % (Auto) 6.9, Eos % (Auto) 3.0, Baso % (Auto) 0.5, Neut # (Auto) 4.6, Lymph # (Auto) 1.2, [place] # (Auto) 0.5, Eos # (Auto) 0.2, Baso # (Auto) 0.0 09/23/21 07:26: Sodium 140, Potassium 3.2 L, Chloride 107, Carbon Dioxide 26, Anion Gap 10.2, BUN 19 H, Creatinine 0.90, Estimated Creat Clear 40, Estimated GFR 62, Est GFR ( Amer) 74 D, Glucose 80, Calcium 9.0 I & O for Last 24 hours: Intake & Output 09/20/21 09/21/21 09/22/21 09/23/21 23:59 23:59 23:59 23:59 Intake Total 240 / 240 Output Total 600 / 750 150 / 150 Balance -360 / -510 -150 / -150 Weight 107 lb 8 oz 107 lb 7.958 oz 109 lb Microbiology Reports for the Last 24 Hours: Microbiology 09/21/21 20:40 Urine,Clean Catch Urine Culture - Final Escherichia coli - Constitutional no acute distress, chronically ill appearing - *Routine HEENT Exam Head: Present: normocephalic Eye: Present: EOMI, PERRL ENT: Present: mucous membranes moist - *Routine Neck Exam Present: supple. Absent: lymphadenopathy - *Routine Respiratory Exam Present: rhonchi. Absent: accessory muscle use, respiratory distress - *Routine Cardiovascular Exam Present: RRR - *Routine Abdominal Exam Present: soft, normoactive bowel sounds. Absent: tenderness - *Routine Extremities Exam Absent: cyanosis, clubbing, edema - *Routine Skin Exam Absent: jaundice - *Routine Neurological Exam Present: alert, oriented X3. Absent: altered mental status Assessment and Plan (1) Accidental fall Status: Acute Qualifiers: Encounter type: initial encounter Qualified Code(s): W19.XXXA - Unspecified fall, initial encounter Category: Medical Code(s): W19.XXXA - Unspecified fall, initial encounter (2) CAP (community acquired pneumonia) Status: Acute Category: Medical Code(s): J18.9 - Pneumonia, unspecified organism (3) Congestive heart failure Status: Acute Qualifiers: Heart failure type: diastolic Heart failure chronicity: acute on chronic Qualified Code(s): I50.33 - Acute on chronic diastolic (congestive) heart failure Category: Medical Code(s): I50.9 - Heart failure, unspecified (4) SIRS (systemic inflammatory response syndrome) Status: Acute Category: Medical Code(s): R65.10 - Systemic inflammatory response syndrome (SIRS) of non-infectious origin without acute organ dysfunction (5) UTI (urinary tract infection) Status: Acute Qualifiers: Urinary tract infection type: site unspecified Hematuria presence: without hematuria Qualified Code(s): N39.0 - Urinary tract infection, site not specified Category: Medical Code(s): N39.0 - Urinary tract infection, site not specified (6) Elevated troponin Status: Acute Category: Medical Code(s): R79.89 - Other specified abnormal findings of blood chemistry (7) Hypotension Status: Acute Qualifiers: Hypotension type: unspecified hypotension type Qualified Code(s): I95.9 - Hypotension, unspecified Category: Medical Code(
--- NOTE | 2021-09-23 14:36 | PC.NURSE ---
PT IS RESTING IN BED WITH FAMILY AT BEDSIDE. ALERT AND ORIENTED X3. THIS MORNING PT HAD A CHOKING EPISODE BUT WAS ABLE TO CLEAR AIRWAY. PT HAS BEEN ENCOURAGED TO STAY WITH SOFT FOODS UNTIL SPEECH IS ABLE TO EVALUATE. PT TOOK PO MEDS THIS MORNING WITH WATER W/O DIFFICULTY. LUNG SOUNDS CLEAR. ABDOMEN SOFT/NON TENDER WITH ACTIVE BOWEL SOUNDS. WILL CONTINUE TO MONITOR.
[2021-09-24] VITALS: BP 161/86; PULSE 69; PULSE 70; RESP 14; TEMP 36.6; O2SAT 99
[2021-09-24 04:00] VITALS: BP 204/88; PULSE 70; PULSE 76; RESP 14; TEMP 36.6; O2SAT 95
--- NOTE | 2021-09-24 04:00 | PC.NURSE ---
Addendum entered by Dalila Chang RN 09/24/21 06:19: After 1 hour bp is 190/79 ethanol operations manager ordered clonidine 0.1mg. Administered. Addendum entered by Dalila Chang RN 09/24/21 04:48: BP 204/88 manual. Contact physician ethanol operations manager. New orders obtained and carried out, see MAR. Original Note: Patient rested well throughout night. Patient AO x3. Ohara cath in place. Family at bedside. VSS remaining afebrile. patient on 2l nc sating in the 90's.
[2021-09-24 06:33] VITALS: BMI 18.3
[2021-09-24 06:55] LABS: Basophils # 0.1 K/mm3 (0-0.2); Eosinophils # 0.2 K/mm3 (0.0-0.4); Hematocrit 34.3 % (37.0-47.0); Hemoglobin 11.3 g/dL (12.2-16.2); Lymphocytes # 1.1 K/mm3 (0.7-4.5); Lymphocytes % 17.9 % (10-50); Mean Corpuscular HGB Conc 32.9 g/dL (31.8-35.4); Mean Corpuscular Hemoglobin 34.2 pg (27.0-31.2); Mean Corpuscular Volume 103.9 fl (81-99); Mean Platelet Volume 8.9 fl (7.4-10.4); Monocytes # 0.4 K/mm3 (0.1-1.0); Neutrophils # 4.3 K/mm3 (1.8-7.8); Neutrophils % 71.1 % (37.0-80.0); Platelet Count 127 K/mm3 (142-424); Red Cell Distribution Width 15.5 % (11.5-17.5)
[2021-09-24 07:06] LABS: Anion Gap 7.1 mEq/L (5-15); Blood Urea Nitrogen 17 mg/dl (7-17); Calcium 8.9 mg/dl (8.4-10.2); Carbon Dioxide 29 mmol/L (22.0-30.0); Chloride 106 mmol/L (98-107); Creatinine Clearance Estimated 42 mL/min (50-200); Estimated Glomerular Filt Rate 82 ml/min (>60); GFR (African American) 100 ML/MIN (>60); Glucose 90 mg/dl (74-100); Potassium 3.1 mmoL/L (3.5-5.1); Sodium 139 mmol/L (136-145)
[2021-09-24 08:00] VITALS: BP 129/74; PULSE 100; PULSE 72; RESP 15; TEMP 37.6; O2SAT 90
--- NOTE | 2021-09-24 09:42 | HMH.SLDYSPHA ---
Speech & Language Evaluation Speech/Language Dysphagia Evaluation Start: 09/24/21 09:30 Freq: ONCE Status: Active Protocol: Document 09/24/21 09:30 COYMARK (Rec: 09/24/21 09:42 [email or web address] [id number]) Dysphagia Assess/Goals/Plan Assessment Date of Evaluation: 09/24/21 Evaluation Type Initial Certification Assessment/Problems Coughing with food. Does Patient Qualify for Service No Qualify/Failure Comment Based on the results of the clinical swallow evaluation, patient does not qualify for skilled speech therapy services at this time. Recommendations PHYSICIAN CERTIFICATION: The specified therapy services are required, authorized, and reviewed every 30 days. Diet Recommendations Normal Liquid Type Recommendations Normal/Thin SL Swallow Guidelines Standard Aspiration Prec. Dysphagia Swallow Precautions/Strategies Sitting Upright (90 deg),Small Bites and Sips,Alternate Liquids/Solids Place Food on Either side of Mouth Plan Pt/Guardian verbally ack understanding Yes of dx/prognosis/goals Pt/Guardian verbally ack understanding Yes of/consent to tx prog G -code Required No Education Instructions provided Evaluation results discussed with patient and family, who expressed understanding. Diet recommendations discussed with patient, family, nursing, and case management. Pt/Caregiver able to recall information Able to recall/restate Reinforcement needed No Speech & Language HPI History Present Illness Description of Patient Problem Evette is a 71 year old female presenting to [facility] following a fall in her home. She is currently on a regular diet with thin liquids, and reports occational choking episodes. PMH includes MS. Pt/Caregiver Concerns Occational coughing/choking with meals. Rehab Services Assessed Speech therapy Is this evaluation r/t stroke? No Language Primary Language Congolese General Information General Current Food Consistancy Regular,Thin Liquids Dentition Poor Dentition Comment: Patient has upper dentures but reports she does not wear them. Oxygen Status Nasal Cannula Facial Symmetry Symmet
--- NOTE | 2021-09-24 10:48 | HMH.PTEV ---
Physical Therapy Evaluation Rehab PT IP Evaluation Start: 09/23/21 12:13 Freq: ONCE Status: Active Protocol: Document 09/24/21 10:27 [email or web address] (Rec: 09/24/21 10:48 [email or web address] [id number]) Subjective/History History History This is the initial inpatient evaluation for Evette Regan . Pt.'s and granddaughter were present at the time of the initial eval. Pt. is a 71 year old female who presents to [facility] Inpatient w/ c/o weakness, fatigue, and some confusion of insidious onset since last (09/21/21). Pt.'s reports he found her unresponsive and had called 911 that evening. Pt.'s also reports pt. had a fall that night before, but also reports having a history of recurring falls w/ transitional movements d/t weakness and being easily fatigable. Pt. also c/o dizziness w/ prolonged standing secondary to Hypertension. Pt. denies having any P! supine in hospital bed, but states P! jumping to a 6/10(LLE hip) w/ ambulation. Pt. reports living w/ her in a 1-story home and a W/C ramp to enter/ exit home. Pt. reports she's recently been sitting in her W /C throughout the day while her goes to work, reports calling her 's cell phone if she needs anything. Pt.'s reports she does well throughout the day, but has problems w/ balance and strength during the night. Pt. reports owning a shower chair , W/C, and a FWW at home. PMH includes Hypertension, Multiple Sclerosis, and Congestive heart Failure.
[2021-09-24 12:00] VITALS: BP 115/49; PULSE 63; PULSE 69; RESP 19; TEMP 36.6; O2SAT 99
--- NOTE | 2021-09-24 13:38 | HMH.ACPN2 ---
Internal Medicine - PN: Subj *Date: 09/24/21 *Time: 13:38 Interval history: Patient looks better this morning. She had marked elevation in blood pressure last night, 0.1 of clonidine. No further choking episodes. Has had a speech and swallow evaluation Airspace disease noted on x-ray, on appropriate antibiotic coverage Exam Vital signs and Labs for Last 24 Hours: Temp Pulse Resp BP Pulse Ox 99.6 F 100 H 15 129/74 90 L 09/24/21 08:00 09/24/21 08:00 09/24/21 08:00 09/24/21 08:00 09/24/21 08:00 Laboratory Results - last 24 hr 09/24/21 06:25: WBC 6.0, RBC 3.30 L, Hgb 11.3 L, Hct 34.3 L, MCV 103.9 H, MCH 34.2 H, MCHC 32.9, RDW 15.5, Plt Count 127 L, MPV 8.9, Neut % (Auto) 71.1, Lymph % (Auto) 17.9, [place] % (Auto) 6.0, Eos % (Auto) 4.0, Baso % (Auto) 1.0, Neut # (Auto) 4.3, Lymph # (Auto) 1.1, [place] # (Auto) 0.4, Eos # (Auto) 0.2, Baso # (Auto) 0.1 09/24/21 06:25: Sodium 139, Potassium 3.1 L, Chloride 106, Carbon Dioxide 29, Anion Gap 7.1, BUN 17, Creatinine 0.70 D, Estimated Creat Clear 42, Estimated GFR 82, Est GFR ( Amer) 100 D, Glucose 90, Calcium 8.9 I & O for Last 24 hours: Intake & Output 09/21/21 09/22/21 09/23/21 09/24/21 23:59 23:59 23:59 23:59 Intake Total 240 / 240 2213 / 2213 Output Total 600 / 750 750 / 750 0 / 0 Balance -360 / -510 1463 / 1463 0 / 0 Weight 107 lb 8 oz 107 lb 7.958 oz 109 lb 114 lb Microbiology Reports for the Last 24 Hours: Microbiology 09/21/21 21:41 Blood Blood Culture - Preliminary NO GROWTH AFTER 48 HOURS 09/21/21 21:41 Blood Blood Culture - Preliminary NO GROWTH AFTER 48 HOURS - Constitutional chronically ill appearing, cooperative - *Routine HEENT Exam Head: Present: normocephalic Eye: Present: EOMI, PERRL ENT: Present: mucous membranes moist - *Routine Neck Exam Present: supple. Absent: lymphadenopathy - *Routine Respiratory Exam Present: rhonchi. Absent: accessory muscle use, wheezes, crackles - *Routine Cardiovascular Exam Present: RRR - *Routine Abdominal Exam Present: soft, normoactive bowel sounds. Absent: tenderness - *Routine Extremities Exam Absent: cyanosis, clubbing, edema - *Routine Skin Exam Present: warm. Absent: rash - *Routine Neurological Exam Present: alert, oriented X3, motor deficit, vision grossly intact, hearing grossly intact. Absent: altered mental status Assessment and Plan (1) Accidental fall Status: Acute Qualifiers: Encounter type: initial encounter Qualified Code(s): W19.XXXA - Unspecified fall, initial encounter Category: Medical Code(s): W19.XXXA - Unspecified fall, initial encounter (2) CAP (community acquired pneumonia) Status: Acute Category: Medical Code(s): J18.9 - Pneumonia, unspecified organism (3) Congestive heart failure Status: Acute Qualifiers: Heart failure type: diastolic Heart failure chronicity: acute on chronic Qualified Code(s): I50.33 - Acute on chronic diastolic (congestive) heart failure Category: Medical Code(s): I50.9 - Heart failure, unspecified (4) SIRS (systemic inflammatory response syndrome) Status: Acute Category: Medical Code(s): R65.10 - Systemic inflammatory response syndrome (SIRS) of non-infectious origin without acute organ dysfunction (5) UTI (urinary tract infection) Status: Acute Qualifiers: Urinary tract infection type: site unspecified Hematuria presence: without hematuria Qualified Code(s): N39.0 - Urinary tract infection, site not specified Category: Medical Code(s): N39.0 - Urinary tract infection, site not specified (6) Elevated troponin Status: Acute Category: Medical Code(s): R79.89 - Other specified abnormal findings of blood chemistry (7) Hypotension Status: Acute Qualifiers: Hypotension type: unspecified hypotension type Qualified Code(s): I95.9 - Hypotension, unspecified Category: M
--- NOTE | 2021-09-24 14:42 | PC.NURSE ---
PT IS RESTING IN BED. ALERT AND ORIENTED X3. PT PARTICIPATED WITH PHYSICAL THERAPY WELL THIS SHIFT. SPEECH EVALUATED PT AND STATED THERE WERE NO CONCERNS FOR ASPIRATION AT THIS TIME BUT WILL CHANGE PT'S DIET TO MECHANICAL SOFT DUE TO NOT WEARING HER TOP DENTURES. PT HAS NOT HAD ANY CHOKING EPISODES THIS SHIFT. LUNG SOUNDS CLEAR. ABDOMEN SOFT/NON TENDER. SCATTERED BRUISING NOTED. WILL CONTINUE TO MONITOR.
[2021-09-24 16:00] VITALS: BP 133/57; PULSE 70; PULSE 71; RESP 15; TEMP 36.4; O2SAT 98
[2021-09-24 20:00] VITALS: BP 178/71; PULSE 60; PULSE 69; RESP 18; TEMP 36.7; O2SAT 96
[2021-09-25] VITALS: BP 140/75; PULSE 60; RESP 16; TEMP 36.4; O2SAT 98
[2021-09-25 04:00] VITALS: BP 180/79; PULSE 60; RESP 14; TEMP 36.1; O2SAT 95
[2021-09-25 05:04] VITALS: BMI 18.3
--- NOTE | 2021-09-25 05:10 | PC.NURSE ---
pt awake t/o most of shift, has not complained of pain or SOA, has remained on 2 L NC with O2 sats 95-98%, telemetry shows NSR, HR 60-69, brito in place
[2021-09-25 06:22] LABS: Basophils % 0.3 % (0.1-2.0); Eosinophils # 0.2 K/mm3 (0.0-0.4); Eosinophils % 4.6 % (0.1-12.0); Hematocrit 33.4 % (37.0-47.0); Hemoglobin 10.7 g/dL (12.2-16.2); Lymphocytes # 1.2 K/mm3 (0.7-4.5); Lymphocytes % 22.7 % (10-50); Mean Corpuscular Hemoglobin 33.6 pg (27.0-31.2); Mean Corpuscular Volume 104.7 fl (81-99); Mean Platelet Volume 8.9 fl (7.4-10.4); Monocytes # 0.3 K/mm3 (0.1-1.0); Monocytes % 6.1 % (1.7-9.3); Neutrophils # 3.5 K/mm3 (1.8-7.8); Neutrophils % 66.3 % (37.0-80.0); Platelet Count 130 K/mm3 (142-424); Red Blood Count 3.19 M/mm3 (4.20-5.40); Red Cell Distribution Width 15.4 % (11.5-17.5); White Blood Count 5.3 K/mm3 (4.8-10.8)
[2021-09-25 06:32] LABS: Anion Gap 7.1 mEq/L (5-15); Blood Urea Nitrogen 16 mg/dl (7-17); Calcium 8.5 mg/dl (8.4-10.2); Carbon Dioxide 26 mmol/L (22.0-30.0); Chloride 107 mmol/L (98-107); Creatinine Clearance Estimated 42 mL/min (50-200); Estimated Glomerular Filt Rate 82 ml/min (>60); GFR (African American) 100 ML/MIN (>60); Glucose 90 mg/dl (74-100); Potassium 3.1 mmoL/L (3.5-5.1); Sodium 137 mmol/L (136-145)
[2021-09-25 08:00] VITALS: BP 198/80; PULSE 65; PULSE 67; RESP 17; TEMP 36.5; O2SAT 97
--- NOTE | 2021-09-25 09:38 | SW/DCPLANNER ---
Addendum entered by Carol Ann Taylor 09/25/21 15:58: [facility] Saturday[facility]21. Addendum entered by Carol Ann Taylor 09/25/21 13:02: [facility] has denied this patient at this time. I spoke with patient and her regarding situation and offered to fax referral to other SNF facilities. Patient and again stated they are only interested in [facility] or home health. Patient information/order will be faxed to [facility] at time of discharge. Patient information/order will also be faxed to [facility] for a hospital bed. Original Note: I spoke with this patient regarding discharge plans. Patient stated that she resides at home with her but understands she could benefit from SNF level of care at time of discharge. Patient is only interested in [facility] but stated that she was denied in the past due to MS medication. Patient is interested in me checking into [facility] again: patient information has been faxed. Patient stated that if [facility] can not accept her she would prefer to discharge home with home health services and a hospital bed. I will follow up with patient once [facility] reviews information. MD stated that patient is currently stable for discharge.
--- NOTE | 2021-09-25 10:18 | HMH.ACPN ---
Internal Medicine - PN: Subj *Date: 09/25/21 *Time: 10:18 Exam Vital signs and Labs for Last 24 Hours: Temp Pulse Resp BP Pulse Ox 97.7 F 65 17 198/80 H 97 09/25/21 08:00 09/25/21 08:00 09/25/21 08:00 09/25/21 08:00 09/25/21 08:00 Laboratory Results - last 24 hr 09/25/21 05:50: WBC 5.3, RBC 3.19 L, Hgb 10.7 L, Hct 33.4 L, MCV 104.7 H, MCH 33.6 H, MCHC 32.0, RDW 15.4, Plt Count 130 L, MPV 8.9, Neut % (Auto) 66.3, Lymph % (Auto) 22.7, Leslie % (Auto) 6.1, Eos % (Auto) 4.6, Baso % (Auto) 0.3, Neut # (Auto) 3.5, Lymph # (Auto) 1.2, Leslie # (Auto) 0.3, Eos # (Auto) 0.2, Baso # (Auto) 0.0 09/25/21 05:50: Sodium 137, Potassium 3.1 L, Chloride 107, Carbon Dioxide 26, Anion Gap 7.1, BUN 16, Creatinine 0.70, Estimated Creat Clear 42, Estimated GFR 82, Est GFR ( Amer) 100, Glucose 90, Calcium 8.5 I & O for Last 24 hours: Intake & Output 09/22/21 09/23/21 09/24/21 09/25/21 23:59 23:59 23:59 23:59 Intake Total 240 / 240 2213 / 2213 980 / 980 660 / 660 Output Total 600 / 750 750 / 750 800 / 800 450 / 450 Balance -360 / -510 1463 / 1463 180 / 180 210 / 210 Weight 48.76 kg 49.442 kg 51.71 kg 51.936 kg Assessment and Plan (1) Accidental fall Status: Acute Qualifiers: Encounter type: initial encounter Qualified Code(s): W19.XXXA - Unspecified fall, initial encounter Category: Medical Code(s): W19.XXXA - Unspecified fall, initial encounter (2) CAP (community acquired pneumonia) Status: Acute Category: Medical Code(s): J18.9 - Pneumonia, unspecified organism (3) Congestive heart failure Status: Acute Qualifiers: Heart failure type: diastolic Heart failure chronicity: acute on chronic Qualified Code(s): I50.33 - Acute on chronic diastolic (congestive) heart failure Category: Medical Code(s): I50.9 - Heart failure, unspecified (4) SIRS (systemic inflammatory response syndrome) Status: Acute Category: Medical Code(s): R65.10 - Systemic inflammatory response syndrome (SIRS) of non-infectious origin without acute organ dysfunction (5) UTI (urinary tract infection) Status: Acute Qualifiers: Urinary tract infection type: site unspecified Hematuria presence: without hematuria Qualified Code(s): N39.0 - Urinary tract infection, site not specified Category: Medical Code(s): N39.0 - Urinary tract infection, site not specified (6) Elevated troponin Status: Acute Category: Medical Code(s): R79.89 - Other specified abnormal findings of blood chemistry (7) Hypotension Status: Acute Qualifiers: Hypotension type: unspecified hypotension type Qualified Code(s): I95.9 - Hypotension, unspecified Category: Medical Code(s): I95.9 - Hypotension, unspecified (8) Pulmonary HTN Status: Acute Category: Medical Code(s): I27.20 - Pulmonary hypertension, unspecified (9) COPD (chronic obstructive pulmonary disease) Status: Chronic Qualifiers: COPD type: unspecified COPD Qualified Code(s): J44.9 - Chronic obstructive pulmonary disease, unspecified Category: Medical Code(s): J44.9 - Chronic obstructive pulmonary disease, unspecified (10) HLD (hyperlipidemia) Status: Chronic Qualifiers: Hyperlipidemia type: mixed hyperlipidemia Qualified Code(s): E78.2 - Mixed hyperlipidemia Category: Medical Code(s): E78.5 - Hyperlipidemia, unspecified (11) HTN (hypertension) Status: Chronic Qualifiers: Hypertension type: essential hypertension Category: Medical Code(s): I10 - Essential (primary) hypertension The patient's infection will respond to the chosen ABx?: Yes Is the patient receiving the right drug, dose, and route?: Yes Could a more targeted ABx be ordered?: No (E. COLI IN URINE CX. AFEBRILE, WBC WNL.)
[2021-09-25 12:00] VITALS: BP 160/80; PULSE 68; PULSE 80; RESP 17; TEMP 36.6; O2SAT 95
--- NOTE | 2021-09-25 13:19 | HMH.DCSUM ---
General - General Admission date:: 09/22/21 Discharge date: 09/25/21 HPI HPI: 71-year-old female presented to the emergency department after a fall. Patient is Bedridden due to ms, can get up to wc with assistance,the is the primary caregiver. Pt states she was transferring from the commode to the wheelchair when she fell onto her left side. Hit the left side of her head and been more lethargic since fall. Patient is not ambulatory at baseline, for over 3 weeks per . In ed pt was found to have a uti and left lower lobe infiltrate and admitted for further work up. Hospital Course Hospital Course: patient has improved on antbiotics and fluids with e coli uti - pt has episodes of confusion and elevated bp but has improved and will be d/c with home health Objective Vital signs: Temp Pulse Resp BP Pulse Ox 97.9 F 80 17 160/80 H 95 09/25/21 12:00 09/25/21 12:00 09/25/21 12:00 09/25/21 12:00 09/25/21 12:00 no acute distress, thin - *Routine HEENT Exam Head: Present: normocephalic Eye: Present: EOMI, PERRL ENT: Present: mucous membranes dry - *Routine Neck Exam Absent: JVD - *Routine Respiratory Exam Present: decreased breath sounds - *Routine Cardiovascular Exam Present: RRR, murmur, S4 - *Routine Abdominal Exam Present: soft - *Routine Extremities Exam Absent: calf tenderness - *Routine Skin Exam Absent: cyanosis - *Routine Neurological Exam Present: alert, CN II-XII intact, sensory deficit, motor deficit - Routine Psychiatric Exam Present: normal affect Results Labs on day of discharge: Labs from last 24 hours 09/25/21 09/25/21 05:50 05:50 WBC 5.3 RBC 3.19 L Hgb 10.7 L Hct 33.4 L MCV 104.7 H MCH 33.6 H MCHC 32.0 RDW 15.4 Plt Count 130 L MPV 8.9 Neut % (Auto) 66.3 Lymph % (Auto) 22.7 Pettis % (Auto) 6.1 Eos % (Auto) 4.6 Baso % (Auto) 0.3 Neut # (Auto) 3.5 Lymph # (Auto) 1.2 Pettis # (Auto) 0.3 Eos # (Auto) 0.2 Baso # (Auto) 0.0 Sodium 137 Potassium 3.1 L Chloride 107 Carbon Dioxide 26 Anion Gap 7.1 BUN 16 Creatinine 0.70 Estimated Creat Clear 42 Estimated GFR 82 Est GFR ( Amer) 100 Glucose 90 Calcium 8.5 Preliminary micro results at discharge 09/21/21 21:41 Blood Culture - Preliminary Blood NO GROWTH AFTER 48 HOURS 09/21/21 21:41 Blood Culture - Preliminary Blood NO GROWTH AFTER 48 HOURS DS: Diagnosis - Discharge Diagnosis (1) Accidental fall Status: Acute (2) CAP (community acquired pneumonia) Status: Acute (3) Congestive heart failure Status: Acute (4) SIRS (systemic inflammatory response syndrome) Status: Acute (5) UTI (urinary tract infection) Status: Acute (6) Elevated troponin Status: Acute (7) Hypotension Status: Acute (8) Pulmonary HTN Status: Acute (9) COPD (chronic obstructive pulmonary disease) Status: Chronic (10) HLD (hyperlipidemia) Status: Chronic (11) HTN (hypertension) Status: Chronic (12) E. coli UTI (urinary tract infection) Status: Acute (13) Multiple sclerosis Status: Acute Discharge Plan - Patient Discharge Instructions ACTIVITY: Continue current activity DIET: continue same diet Patient Instructions: DI for Heart Failure, DI for High Blood Pressure, DI for Urinary Tract Infection (UTI), How to Prevent Falls - Follow up Plan Disposition: Home, Self-Care Condition at discharge:: Improved Home Medications: Home Medications Medication Instructions Recorded Confirmed Type Aspirin [Aspirin 81mg EC Tab] 81 mg PO DAILY 05/09/19 09/22/21 History Atorvastatin Calcium [Lipitor 20mg 20 mg PO DAILY 05/09/19 09/22/21 History Tab] Cyanocobalamin (Vitamin B-12) 1,000 mcg PO DAILY 05/09/19 09/22/21 History [Vitamin B-12] Gabapentin 600 mg PO BID 05/09/19 09/22/21 History Levothyroxine Sodium [Synthroid 50 mcg PO Q48H 05/09
--- NOTE | 2021-09-25 13:20 | CARE MANAGER ---
Patient has mutiple sclerosis and requires positioning of her body in ways not feasible with an ordinary bed in order to alleviate pain.
--- NOTE | 2021-09-25 13:31 | CARE MANAGER ---
Patient family requested hospital bed, order and demographics faxed to [facility] per patient choice.
[2021-09-25 14:00] VITALS: BP 160/78; BP 190/90
--- NOTE | 2021-09-26 14:35 | CARE MANAGER ---
Contacted patient's who states the patient went to [facility] just a little bit ago due to HTN. He states BP has been elevated since they left. He denies any other questions or concerns.
== END 2021-09-25 14:38 | disposition home or self-care (01) | DRG 291 ==
LOC: ER 21:55 → 2ND 22:35
PROVIDERS: Nurse Practitioner Family; Admitting Provider Emergency Medicine; Emergency Provider Emergency Medicine; PCP Internal Medicine; Visit Provider Family Medicine
DX: I11.0 Hypertensive heart disease with heart failure (principal); J18.9 Pneumonia, unspecified organism; I50.33 Acute on chronic diastolic (congestive) heart failure; I16.1 Hypertensive emergency; N39.0 Urinary tract infection, site not specified; Z20.822 Contact with and (suspected) exposure to COVID-19; E78.5 Hyperlipidemia, unspecified; Z87.891 Personal history of nicotine dependence; W19.XXXA Unspecified fall, initial encounter; G35 Multiple sclerosis; I27.20 Pulmonary hypertension, unspecified; Z74.01 Bed confinement status; B96.20 Unspecified Escherichia coli [E. coli] as the cause of diseases classified elsewhere
CPT/HCPCS: 36415; 51702; 70450; 70496; 70498; 71045; 72125; 72170; 74176; 80048; 80053; 81001; 83605; 83735; 83880; 84484; 85007; 85025; 85610; 85730; 87040; 87086; 87088; 87186; 92610; 93306; 96375; 97110; 97161; 99285; C9803; J0456; J0696; J2405; Q9967; U0003; U0005

== ENCOUNTER → 2021-12-07 11:58 | Outpatient (CLI) | payer MEDICARE, BC, SELFPAY ==
[2021-12-07 13:16] LABS: Alanine Aminotransferase 23 U/L (12-78); Albumin Level 3.8 g/dl (3.5-5.0); Albumin/Globulin Ratio 1.4 (1.1-1.8); Alkaline Phosphatase 63 U/L (38-126); Anion Gap 8.1 mEq/L (5-15); Aspartate Amino Transferase 35 U/L (14-36); Blood Urea Nitrogen 25 mg/dl (7-17); Calcium 9.4 mg/dl (8.4-10.2); Carbon Dioxide 27 mmol/L (22.0-30.0); Chloride 113 mmol/L (98-107); Estimated Glomerular Filt Rate 55 ml/min (>60); GFR (African American) 66 ML/MIN (>60); Globulin 2.8 g/dL (1.3-3.2); Glucose 93 mg/dl (74-100); Potassium 4.1 mmoL/L (3.5-5.1); Sodium 144 mmol/L (136-145); Total Protein,Serum 6.6 g/dl (6.3-8.2)
[2021-12-07 13:20] LABS: Bilirubin,Total 0.1 mg/dl (0.2-1.3)
[2021-12-07 13:34] LABS: Thyroid Stimulating Hormone 0.05 uIU/mL (0.465-4.68)
== END ==
PROVIDERS: PCP Nurse Practitioner Family; Visit Provider Nurse Practitioner Family
DX: E03.9 Hypothyroidism, unspecified (principal); I10 Essential (primary) hypertension
CPT/HCPCS: 36415; 80053; 84443

== ENCOUNTER → 2023-02-15 09:58 | Outpatient (CLI) | payer MEDICARE, BC, SELFPAY ==
[2023-02-15 10:53] LABS: Alanine Aminotransferase 20 U/L (12-78); Albumin Level 4.2 g/dl (3.5-5.0); Albumin/Globulin Ratio 1.4 (1.1-1.8); Alkaline Phosphatase 94 U/L (38-126); Anion Gap 12.2 mEq/L (5-15); Aspartate Amino Transferase 25 U/L (14-36); Bilirubin,Total 0.7 mg/dl (0.2-1.3); Blood Urea Nitrogen 41 mg/dl (7-17); Calcium 9.7 mg/dl (8.4-10.2); Carbon Dioxide 26 mmol/L (22.0-30.0); Chloride 111 mmol/L (98-107); Estimated Glomerular Filt Rate 37 ml/min (>60); GFR (African American) 45 ML/MIN (>60); Globulin 2.9 g/dL (1.3-3.2); Glucose 101 mg/dl (74-100); Potassium 4.2 mmoL/L (3.5-5.1); Sodium 145 mmol/L (136-145); Total Protein,Serum 7.1 g/dl (6.3-8.2)
== END ==
PROVIDERS: PCP Nurse Practitioner Family; Visit Provider Nurse Practitioner Family
DX: R79.89 Other specified abnormal findings of blood chemistry (principal)
CPT/HCPCS: 36415; 80053

== ENCOUNTER → 2023-03-21 14:26 | Outpatient (CLI) | payer MEDICARE, BC, SELFPAY ==
[2023-03-21 15:41] LABS: Alanine Aminotransferase 18 U/L (12-78); Albumin Level 4.4 g/dl (3.5-5.0); Albumin/Globulin Ratio 1.6 (1.1-1.8); Alkaline Phosphatase 81 U/L (38-126); Anion Gap 15.5 mEq/L (5-15); Aspartate Amino Transferase 29 U/L (14-36); Bilirubin,Total 0.5 mg/dl (0.2-1.3); Blood Urea Nitrogen 41 mg/dl (7-17); Calcium 9.7 mg/dl (8.4-10.2); Carbon Dioxide 23 mmol/L (22.0-30.0); Chloride 110 mmol/L (98-107); Estimated Glomerular Filt Rate 37 ml/min (>60); GFR (African American) 45 ML/MIN (>60); Globulin 2.7 g/dL (1.3-3.2); Glucose 95 mg/dl (74-100); Potassium 4.5 mmoL/L (3.5-5.1); Sodium 144 mmol/L (136-145); Total Protein,Serum 7.1 g/dl (6.3-8.2)
== END ==
PROVIDERS: PCP Nurse Practitioner Family; Visit Provider Nurse Practitioner Family
DX: R79.89 Other specified abnormal findings of blood chemistry (principal)
CPT/HCPCS: 36415; 80053

== ENCOUNTER → 2023-05-09 08:40 | Outpatient (CLI) | payer MEDICARE, BC, SELFPAY ==
--- NOTE | 2023-05-09 08:46 | US_ITS ---
FINAL REPORT CLINICAL HISTORY: ELEVATED CREATININE/HYPERTENSION FINDINGS: The right kidney measures 9.0 cm in length. It is normal in echogenicity. There is no hydronephrosis. There is a 1.2 cm right renal cyst. The left kidney measures 8.1 cm in length. It is normal in echogenicity. There is no hydronephrosis. The spleen is unremarkable. IMPRESSION: Right renal cyst. Reviewed, Interpreted and Dictated by Flako Smiley MD Transcribed by Annetta Pena Authenticated and [facility]
== END ==
LOC: RAD 08:40
PROVIDERS: PCP Nurse Practitioner Family; Visit Provider Internal Medicine Adolescent Medicine
DX: R79.89 Other specified abnormal findings of blood chemistry (principal); I10 Essential (primary) hypertension; Z87.891 Personal history of nicotine dependence
CPT/HCPCS: 76770

== ENCOUNTER 2023-06-10 17:36 | Emergency (ER) | payer MEDICARE, BC, SELFPAY ==
[2023-06-10 17:37] VITALS: BP 143/66; PULSE 74; RESP 19; TEMP 36.6; O2SAT 99; BMI 26.7
[2023-06-10 18:00] VITALS: BP 129/66; PULSE 68; O2SAT 98
--- NOTE | 2023-06-10 18:09 | CT_ITS ---
PROCEDURE INFORMATION: Exam: CT Cervical Spine Without Contrast Exam date and time: 06/10/2023 7:07 PM Age: 73 years old Clinical indication: Injury or trauma; Fall; Blunt trauma; Additional info: Fall, frontal injury TECHNIQUE: Imaging protocol: Computed tomography of the cervical spine without contrast. Total images: 298 Radiation optimization: All CT scans at this facility use at least one of these dose optimization techniques: automated exposure control; mA and/or kV adjustment per patient size (includes targeted exams where dose is matched to clinical indication); or iterative reconstruction. COMPARISON: CT CERVICAL SPINE WO CON 09/21/2021 5:40 PM FINDINGS: Bones/joints: Vertebral body height and alignment is maintained. Osteopenia. The base of the dens and C1 and C2 articulations are preserved with moderate to severe degenerative arthropathy. The cervicooccipital junction is intact. The facet joints are appropriately aligned with mild multilevel degenerative spondylosis. Posterior elements are intact. Moderate degenerative disc disease greatest at C5-C6 and C6-C7. No concerning bone lesions. Mild disc bulge C3-C4 and C4-C5. Small posterior projecting disc osteophyte complex C5-C6 and C6-C7. No critical spinal canal stenosis or large disc herniation. Bilateral neural foraminal encroachment C5-C6. Prevertebral and retropharyngeal spaces: No prevertebral soft tissue swelling. Lungs: Lung apices are clear. Thyroid: Status post right thyroid lobectomy. Atrophic left thyroid lobe. Vasculature: Severe atherosclerotic vascular calcifications at the bilateral carotid artery bifurcations. Soft tissues: Unremarkable soft tissues of the neck. IMPRESSION: 1. No acute cervical fracture or traumatic subluxation. 2. Degenerative changes as described. 3. Severe atherosclerotic vascular calcifications at the bilateral carotid artery bifurcations. Consider follow-up nonemergent carotid Doppler or CTA
--- NOTE | 2023-06-10 18:09 | CT_ITS ---
PROCEDURE INFORMATION: Exam: CT Head Without Contrast Exam date and time: 06/10/2023 7:05 PM Age: 73 years old Clinical indication: Injury or trauma; Fall; Blunt trauma (contusions or hematomas); Additional info: Fall, frontal injury TECHNIQUE: Imaging protocol: Computed tomography of the head without contrast. Total images: 269 Radiation optimization: All CT scans at this facility use at least one of these dose optimization techniques: automated exposure control; mA and/or kV adjustment per patient size (includes targeted exams where dose is matched to clinical indication); or iterative reconstruction. COMPARISON: CT ANGIO HEAD 09/21/2021 7:04 PM FINDINGS: Brain: No acute intracranial hemorrhage, midline shift, or mass. Moderate cortical and cerebellar atrophy. Moderate to severe periventricular and subcortical white matter hypodensity compatible with remote small vessel ischemic changes. Baraham-white interface is maintained. Basilar cisterns are preserved. Additional remote deep white matter ischemic changes in the bilateral basal ganglia and subinsular cortex. Cerebral ventricles: Mild ventricular prominence compatible degree of central atrophy. Paranasal sinuses: Visualized sinuses are unremarkable. No fluid levels. Mastoid air cells: Visualized mastoid air cells are well aerated. Orbital cavities: Status post bilateral orbital lens replacement. Bones/joints: Osteopenia. Hyperostosis of the frontal calvarium. No skull fracture. Soft tissues: No scalp hematoma. Vasculature: Moderate to severe calcifications bilateral intracranial internal carotid arteries. IMPRESSION: 1. No acute intracranial process. 2. Moderate cortical and cerebellar atrophy. 3. Moderate to severe remote white matter small-vessel post ischemic changes.
--- NOTE | 2023-06-10 18:11 | ED_ITS ---
Discharge Plan Disposition Patient Disposition: Home, Self-Care Prescriptions Prescriptions: No Action melatonin 5 mg tablet 5 mg PO HS PRN (Reason: Sleep) valsartan-hydrochlorothiazide [Diovan HCT] 160-12.5 mg tablet 1 tab PO DAILY Qty: 30 3RF mirtazapine 15 mg tablet 15 mg PO HS furosemide [Lasix] 20 mg tablet 20 mg PO DAILY Qty: 90 2RF atorvastatin 20 MG tablet 20 mg PO DAILY aspirin 81 MG tablet,delayed release (DR/EC) 81 mg PO DAILY cyanocobalamin (vitamin B-12) 1,000 MCG capsule 1,000 mcg PO DAILY sertraline 100 mg tablet 50 mg PO DAILY potassium chloride 20 mEq tablet extended release 20 meq PO BID gabapentin 600 mg tablet See Rx Instructions PO BID Rx Instructions: 600mg qam 1200mg at night orally twice a day; levothyroxine 75 MCG tablet 75 mcg PO Q48H Rx Instructions: alternate with 50mcg cholecalciferol (vitamin D3) 1,250 MCG capsule 50,000 unit PO WEEKLY Referrals Follow up/Referrals: Fay Robertson APRN [Primary Care Provider] - See instructions Activity Restrictions/Add. Instructions Additional Instructions/Restrictions: No acute abnormality on your cervical spine or CT of your head. However there are some calcifications on the carotid vessels that were seen on a noncontrasted study did recommend that you get an outpatient duplex ultrasound of your carotid arteries with your primary care doctor. Return with any worsening symptoms. Clinical Impressions Clinical Impression: Hematoma of frontal scalp, Fall, Calcification of both carotid arteries Discharge ED Provider: Jocelyn Carmichael General Adult HPI General Chief complaint: Fall Stated complaint: AO hit head 06/10 17:15 arellano nausea Time Seen by Provider: 06/10/23 18:05 Mode of Arrival: Ambulatory Source of Information: Patient Limitations: No Limitations Description of Symptoms (Recalled from ER Triage Doc. by RN): pt presents to ED with fall. pt was bending over to put out animal food and tipped over. pt reports a history of MS, and balance issues at baseline. pt has hematoma on left forehead, and redness to left knee. History of Present Illness HPI narrative: Is a 73-year-old female with a history of MS and chronic orthostatic hypotension states that she was bending over to feed one of her animals and fell forward hitting her head on the ground. She has a little bit of forehead pain and some mild neck pain but denies any upper extremity weakness sensory changes etc. No loss of consciousness she has had a low bit of nausea associated with this but no persistent vomiting. Not any anticoagulation or blood thinners. Denies any change in symptoms prior to today's episode and states that this changing balance is consistent with her baseline with her MS. Related Data Home Medications Medication Instructions Recorded Confirmed aspirin 81 mg tablet,delayed 81 mg PO DAILY heart health 05/09/19 01/22/23 release atorvastatin 20 mg tablet 20 mg PO DAILY Cholesterol 05/09/19 01/22/23 cyanocobalamin (vitamin B-12) 1,000 mcg PO DAILY Supplement 05/09/19 01/22/23 1,000 mcg capsule melatonin 5 mg tablet 5 mg PO HS PRN Sleep 09/01/20 01/22/23 cholecalciferol (vitamin D3) 1,250 50,000 unit PO WEEKLY Supplement 09/22/21 01/22/23 mcg (50,000 unit) capsule levothyroxine 75 mcg tablet 75 mcg PO Q48H hypothyroidism 09/22/21 01/22/23 mirtazapine 15 mg tablet 15 mg PO HS 12/29/21 01/22/23 potassium chloride 20 mEq 20 meq PO BID Supplement 12/29/21 01/22/23 tablet,extended release sertraline 100 mg tablet 50 mg PO DAILY Depression 12/29/21 01/22/23 gabapentin 600 mg tablet See Rx Instructions PO BID 07/20/22 01/22/23 peripheal neuropathy Previous Rx's Medication Instructions Recorded furosemide 20 mg tablet (Lasix) 20 mg PO DAILY #90 tabs 05/04/22 valsartan 160 1 tab PO DAILY #30 tabs 01/22/23 mg-hydrochlorothiazide 12.5 mg tablet (Diovan HCT) Allergies Allergy/AdvReac Type Severity Reaction Status Date / Time No Known Allergies Allergy Verified 01/22/23 13:36 [facility] Disclaimer: The information contained in this section may have been updated after the patient was seen, as this information can be updated by other users. Medical History Abnormal EKG Atypical angina Congestive heart failure COPD (chronic obstructive pulmonary disease) Dizziness Dyspnea Elevated troponin Ex-smoker Hypotension NSTEMI (non-ST elevated myocardial infarction) Pulmonary HTN Sinus bradycardia Social History Smoking Status: Former smoker second hand exposure: No alcohol intake: never current occupational status: disabled Travel in the last 8 weeks: Inside the [place] household members: spouse housing: house current occupational exposures/hazards: No caffeine: No ROS Obtained: Yes All systems reviewed & no additional complaints except as documented Physical Exam General General appearance: alert Head Head exam: other (There is a left frontal hematoma that is very small no evidence of depressed skull fracture vital sign raccoon eyes) Neck Neck exam: Present tenderness (Mild midline cervical spine tenderness normal bilateral upper extremity neurovascular exam) Respiratory Respiratory exam: Present normal lung sounds bilaterally Cardiovascular Cardiovascular exam: Present regular rate Neurological Exam Neurological exam: Present alert and oriented X3 Medical Decision Making Emmanuel Inquiry Pt receiving controlled substance: No Vital Signs: 06/10/23 17:37 06/10/23 18:00 06/10/23 18:30 Temperature 97.8 F Temperature Source Oral Pulse Rate 68 69 Pulse Rate [Left Radial] 74 Respiratory Rate 19 Blood Pressure 129/66 147/70 H Blood Pressure [Right Arm] 143/66 H Blood Pressure Mean 87 85 Blood Pressure Mean [Right Arm] 91 02 Sat by Pulse Oximetry 99 98 98 Oxygen Delivery Method Room Air Orders (Tests/Meds): ORDERS Category Date Time Status CT cervical spine wo con Stat Cat Scan 06/10/23 18:[address] head/brain wo con Stat Cat Scan 06/10/23 18:09 Completed Medical Decision Narrative: 73-year-old female presents today with mechanical fall no preceding symptoms that are worrisome for emergency standpoint she fell and hit her head has a frontal hematoma we will get a CT scan of her head and cervical spine and reassess. Reassessment 7:[address] scans performed which I first interpreted of the head and cervical spine there are degenerative changes in the cervical spine but no acute fracture or dislocation CT of the head was unremarkable from intracranial pathology standpoint. This is consistent with radiology read of note there are calcifications in bilateral carotid vessels, arteries which were seen on a noncontrasted study and recommended outpatient carotid duplex ultrasound this c ould be contributory to her chronic dizziness that she is having she will follow-up primary care doctor regarding this but no other emergent medical conditions identified at the moment or need for any further evaluation or treatment. She was discharged in stable condition with supportive care discussed. Critical Care Critical Care Time Critical Care Time: No
[2023-06-10 18:30] VITALS: BP 147/70; PULSE 69; O2SAT 98
[2023-06-10 20:09] VITALS: BP 139/70; PULSE 69; RESP 16; TEMP 36.5; O2SAT 97
== END 2023-06-10 20:09 | disposition home or self-care (01) ==
PROVIDERS: Emergency Provider Student in an Organized Health Care Education/Training Program; PCP Nurse Practitioner Family
DX: S00.03XA Contusion of scalp, initial encounter (principal); M54.2 Cervicalgia; G35 Multiple sclerosis; I65.23 Occlusion and stenosis of bilateral carotid arteries; W01.0XXA Fall on same level from slipping, tripping and stumbling without subsequent striking against object, initial encounter; R11.0 Nausea; I20.9 Angina pectoris, unspecified; I50.9 Heart failure, unspecified; J44.9 Chronic obstructive pulmonary disease, unspecified; I27.20 Pulmonary hypertension, unspecified; Z87.891 Personal history of nicotine dependence
CPT/HCPCS: 70450; 72125; 99285

== ENCOUNTER 2023-06-21 10:49 | Outpatient (CLI) | payer MEDICARE, BC, SELFPAY ==
--- NOTE | 2023-06-21 | CA_ITS ---
FINAL REPORT TECHNIQUE: Color Doppler, duplex Doppler and rodriguez scale sonography of the bilateral neck vasculature was performed. Velocities were measured in the carotid arteries. Stenosis evaluation based on velocity criteria. CLINICAL HISTORY: CAD, multiple sclerosis, history of smoking, HTN. COMPARISON: None FINDINGS: The peak systolic velocity of the right common carotid artery is 58 cm/sec and internal carotid artery 136 cm/sec. The diastolic velocity in the internal carotid artery is 35 cm/sec. The ICA/CCA ratio is 2.6. Visually, a moderate amount of plaque is seen. These findings are consistent with less than 50% stenosis. The external carotid artery is patent. The right vertebral artery is patent with antegrade flow. The peak systolic velocity of the left common carotid artery is 76 cm/sec and internal carotid artery 144 cm/sec. The diastolic velocity in the internal carotid artery is 44 cm/sec. The ICA/CCA ratio is 1.9. Visually, a moderate amount of plaque is seen. These findings are consistent with less than 50% stenosis. The external carotid artery is patent. The left vertebral artery is patent with antegrade flow. IMPRESSION: No evidence of significant carotid stenosis. Bilateral patent vertebral arteries. If indicated, CTA or MRA could further evaluate. Reviewed, Interpreted and Dictated by Jorge L Coronado III, MD Transcribed by Linda Saldaña Authenticated and [facility] [place] [place]
== END 2023-06-21 23:59 ==
LOC: RT 10:50
PROVIDERS: PCP Nurse Practitioner Family; Visit Provider Nurse Practitioner Family
DX: I25.10 Atherosclerotic heart disease of native coronary artery without angina pectoris (principal); G35 Multiple sclerosis; R42 Dizziness and giddiness
CPT/HCPCS: 93880

== ENCOUNTER 2023-08-15 09:23 | Outpatient (CLI) | payer MEDICARE, BC, SELFPAY ==
--- NOTE | 2023-08-15 | CA_ITS ---
APPROVED REPORT EXAM: Comprehensive 2D, Doppler, and color-flow Echocardiogram Senior Maintenance Machinist: DONNY Morales, RVS Ht: 5 ft 3 in Wt: 146lbs BSA: 1.69 BP: 117/72 mmHg Indications: CHF, PHTN,H/O NSTEMI,COPD, Ex-smoker, Bradycardia Echo Enhancing Agent Comments: TDS: lung impedance, Body habitus. 2D Dimensions Left Atrium 3.05 cm LA Volume 24.20 mL LA Volume Index 14.042049 mL/m2 (M/F) 16-34 M-Mode Dimensions RVDd 1.86 cm (0.9-2.6) LA Diam 2.94 cm (1.9-4.0) LVDd 5.01 cm (3.5-5.7) LVDs 3.61 cm (3.5-5.7) IVSd 0.80 cm (0.6-1.1) PWd 0.80 cm (0.6-1.1) EF (Teich) 53.90% EPSs 0.65 cm FS 27.90% EDV (Teich) 118.80 mL TAPSE 1.95 (<1.7) ESV (Teich) 54.80 mL LV Diastology E Decel Time 203 (160-240 msec) E/A Ratio 0.79 MED A' 9.80 cm/s LAT A' 10.00 cm/s Aortic Valve GIL Index 1.61 cm2/m2 AoV Peak Malcolm. 112.0 (50-130 cm/s) AO Peak GR. 5.10 mmHg AO Mean GR. 2.50 (<5 mmHg) AO VTI 24.6 (18-25 cm) GIL (VTI) 2.79 (2.5-4.5 cm2) Mitral Valve MV A Velocity 75.0 (40-130 cm/s) E/A Ratio 0.79 Pulmonary Valve PV Peak Velocity 66.0 (50-150 cm/s) Tricuspid Valve TR P. Velocity 206.00 cm/s RAP Estimate 10.00 mmHg RVSP 27.00 mmHg Left Ventricle The left ventricle is normal size. The left ventricular systolic function is normal. The left ventricular ejection fraction is within the normal range. Proximal septal thickening is noted. There is normal LV segmental wall motion. The left ventricular diastolic function is normal. LVEF is 55%. Right Ventricle The right ventricle is normal size. The right ventricular systolic function is normal. Atria The left atrium size is normal. The right atrium size is normal. There is no Doppler evidence of interatrial shunt. Aortic Valve The aortic valve is mildly thickened. There is no aortic valvular stenosis. No aortic regurgitation is present. Mitral Valve The mitral valve is normal in structure. No evidence of mitral valve stenosis. Mild mitral regurgitation. Tricuspid Valve The tricuspid valve leaflets are thin and pliable. Trace tricuspid regurgitation. There is insufficient TR jet to estimate RVSP. Pulmonic Valve The pulmonary valve is normal in structure. Trace pulmonic regurgitation. Great Vessels The aortic root is normal in size. The ascending aorta is not well visualized. IVC is normal in size and collapses >50% with inspiration. Pericardium There is no pericardial effusion. Other Information Study Quality: Fair Conclusion Normal biventricular systolic function. Mild MR. Electronically signed by : Magnolia Price MD 08/19/2023 16:29:39
== END 2023-08-15 23:59 ==
LOC: RT 09:24
PROVIDERS: PCP Internal Medicine Adolescent Medicine; Visit Provider Internal Medicine
DX: I50.9 Heart failure, unspecified (principal); R00.1 Bradycardia, unspecified; I21.4 Non-ST elevation (NSTEMI) myocardial infarction
CPT/HCPCS: 93306

== ENCOUNTER 2023-08-22 16:45 | Observation (INO) | payer MEDICARE, BC, SELFPAY ==
[2023-08-22] VITALS (12 sets, daily range): BP systolic 117–167; BP diastolic 63–86; PULSE 59–76; RESP 13–19; TEMP 36.4–36.7; O2SAT 84–100; BMI 28.5; BMI 24.6
--- NOTE | 2023-08-22 16:48 | ECG_ITS ---
APPROVED REPORT Exam: Resting ECG HR:76 bpm ECG Measurements Heart Rate 76 AXES [place] 140 P 78 QRSd 69 QRS 56 QT 368 T 59 QTc 399 Conclusion SINUS RHYTHM NORMAL ECG -Danielle Garnica MD Electronically signed by : DANIELLE GARNICA, 08/22/2023 23:37:18
--- NOTE | 2023-08-22 16:57 | XR_ITS ---
PROCEDURE INFORMATION: Exam: XR Chest Exam date and time: 08/22/2023 5:11 PM Age: 73 years old Clinical indication: Other: Syncope TECHNIQUE: Imaging protocol: Radiologic exam of the chest. Views: 1 view. COMPARISON: CR XR CHEST PORTABLE 09/23/2021 12:22 PM FINDINGS: Lungs: There is mild elevation of the right hemidiaphragm. The lungs appear otherwise clear. No focal areas of consolidation. Pleural spaces: No pleural effusions. Negative for pneumothorax. Heart/Mediastinum: Cardiac silhouette and pulmonary vasculature are within range of normal. Bones/joints: There is no evidence of acute fracture. IMPRESSION: Negative for an acute cardiopulmonary abnormality.
--- NOTE | 2023-08-22 16:59 | HMH.EDGENADL ---
Discharge Plan Disposition Patient Disposition: Admitted Condition: Fair Clinical Impressions Clinical Impression: Hypotension Discharge ED Provider: Danielle Garnica General Adult HPI General Chief complaint: Syncope Stated complaint: Syncope Time Seen by Provider: 08/22/23 16:47 History of Present Illness HPI narrative: 73-year-old female with previous medical history of COPD, pulmonary hypertension, CHF, sinus bradycardia, frequent dizziness and lightheadedness as documented in recent cardiology notes, presenting with episode of near syncope. Shortly prior to arrival, patient had eaten and got up from the dinner table then suddenly became very lightheaded and nauseated. She felt her vision was going out and her grandson helped her to the floor. Denies any trauma or rapid falling. Also denies chest pain or palpitations. She does not believe she fully lost consciousness but was unable to stand up and walk due to persistent lightheadedness and nausea. She vomited 3 times and family called EMS. Upon their arrival they found her to be normoglycemic with a glucose of 124. She did have worsening of her symptoms with attempts to sit upright. She states this is similar to many previous episodes of dizziness and lightheadedness and says that this is not even one of her worst episodes but family insisted she come to the ED. Related Data Home Medications Medication Instructions Recorded Confirmed aspirin 81 mg tablet,delayed 81 mg PO DAILY heart health 05/09/19 08/22/23 release atorvastatin 20 mg tablet 20 mg PO DAILY Cholesterol 05/09/19 08/22/23 cyanocobalamin (vitamin B-12) 1,000 mcg PO DAILY Supplement 05/09/19 08/22/23 1,000 mcg capsule levothyroxine 75 mcg tablet 75 mcg PO Q48H hypothyroidism 09/22/21 08/22/23 sertraline 100 mg tablet 50 mg PO DAILY Depression 12/29/21 08/22/23 gabapentin 600 mg tablet See Rx Instructions PO BID 07/20/22 08/22/23 peripheal neuropathy gabapentin 300 mg capsule 300 mg PO DAILY 07/23/23 08/22/23 potassium chloride 20 mEq 10 meq PO HS Supplement 07/23/23 08/22/23 tablet,extended release Previous Rx's Medication Instructions Recorded furosemide 20 mg tablet (Lasix) 20 mg PO DAILY #90 tabs 05/04/22 Allergies Allergy/AdvReac Type Severity Reaction Status Date / Time No Known Allergies Allergy Verified 07/23/23 13:43 [facility] Disclaimer: The information contained in this section may have been updated after the patient was seen, as this information can be updated by other users. Medical History Hypotension Dizziness COPD (chronic obstructive pulmonary disease) Pulmonary HTN Ex-smoker Sinus bradycardia Abnormal EKG Elevated troponin Dyspnea Atypical angina NSTEMI (non-ST elevated myocardial infarction) Congestive heart failure Social History Smoking Status: Former smoker second hand exposure: No alcohol intake: never current occupational status: disabled Travel in the last 8 weeks: Inside the [place] household members: spouse housing: house current occupational exposures/hazards: No caffeine: No ROS Obtained: Yes All systems reviewed & no additional complaints except as documented Physical Exam General General appearance: alert and in no apparent distress Head Head exam: atraumatic, normocephalic and normal inspection Eye Eye exam: Present normal appearance, PERRL and EOMI ENT ENT exam: Present normal exam, normal oropharynx, mucous membranes moist and normal external ear exam Neck Neck exam: Present normal inspection, full ROM and trachea midline; Absent tenderness, meningismus or lymphadenopathy Chest Chest inspection: Present normal inspection and symmetric chest wall rise; Absent tenderness Respiratory Respiratory exam: Present normal lung sounds bilaterally; Absent respiratory distress Cardiovascular Cardiovascular exam: Present regular rate and normal rhythm; Absent JVD Abdominal Exam Abdominal exam: Present soft and normal bowel sounds; Absent distention, tenderness or guarding Extremities Exam Extremities exam: Present normal inspection, full ROM and normal capillary refill; Absent tenderness or calf tenderness Back Exam Back exam: Present normal inspection; Absent tenderness Neurological Exam Neurological exam: Present alert and oriented X3 Psychiatric Psychiatric exam: Present normal affect and normal mood Skin Skin exam: Present warm, dry, intact and normal color Medical Decision Making Emmanuel Inquiry Pt receiving controlled substance: No Emmanuel was queried for this patient: No Vital Signs: 08/22/23 16:45 08/22/23 16:51 08/22/23 17:25 Temperature 98.0 F Temperature Source Oral Pulse Rate 74 68 Pulse Rate [Left Radial] 73 Respiratory Rate 15 13 15 Blood Pressure 167/84 H 133/72 Blood Pressure [Right Arm] 167/81 H Blood Pressure Mean 108 80 Blood Pressure Mean [Right Arm] 109 02 Sat by Pulse Oximetry 95 84 L 97 Oxygen Delivery Method Room Air 08/22/23 17:29 08/22/23 17:30 08/22/23 17:45 Temperature Temperature Source Pulse Rate 70 63 59 L Pulse Rate [Left Radial] Respiratory Rate 13 13 14 Blood Pressure 155/67 H 129/63 160/74 H Blood Pressure [Right Arm] Blood Pressure Mean Blood Pressure Mean [Right Arm] 02 Sat by Pulse Oximetry 97 93 L Oxygen Delivery Method 08/22/23 18:01 08/22/23 18:30 08/22/23 18:56 Temperature 98.0 F Temperature Source Pulse Rate 59 L 59 L 63 Pulse Rate [Left Radial] Respiratory Rate 14 15 19 Blood Pressure 142/71 H 159/74 H 159/74 H Blood Pressure [Right Arm] Blood Pressure Mean 77 77 Blood Pressure Mean [Right Arm] 02 Sat by Pulse Oximetry 100 98 Oxygen Delivery Method Lab Data Lab Results 08/22/23 16:58: VBG Lactic Acid 1.9 08/22/23 17:13: WBC 6.1, RBC 4.52, Hgb 15.0, Hct 47.2 H, MCV 104.4 H, MCH 33.2 H, MCHC 31.8, RDW 13.6, Plt Count 135 L, MPV 8.4, Neut % (Auto) 65.3, Lymph % (Auto) 27.6, [place] % (Auto) 4.2, Eos % (Auto) 1.7, Baso % (Auto) 1.2, Neut # (Auto) 4.0, Lymph # (Auto) 1.7, [place] # (Auto) 0.3, Eos # (Auto) 0.1, Baso # (Auto) 0.1, D-Dimer 0.43, Sodium 140, Potassium 4.6, Chloride 111 H, Carbon Dioxide 26, Anion Gap 7.6, BUN 26 H, Creatinine 1.10 H, Estimated Creat Clear 52, Estimated GFR 49 L, Est GFR ( Amer) 59, Glucose 117 H, Calcium 9.7, Total Bilirubin 1.0, AST 44 H, ALT 24, Alkaline Phosphatase 69, Troponin I < 0.01, Total Protein 6.7, Albumin 3.9, Globulin 2.8, Albumin/Globulin Ratio 1.4, Lipase 160, TSH 0.80 08/22/23 17:13 08/22/23 17:13 Orders (Tests/Meds): ED MEDICATIONS Generic Name Dose Route Start Last Admin Trade Name Freq PRN Reason Stop Dose Admin Lactated Ringer's 1,000 mls @ 75 mls/hr 08/22/23 18:45 Lactated Ringer's 1000 Ml Bag IV 09/21/23 18:44 .[id number] TOMMIE Discontinued Medications Generic Name Dose Route Start Last Admin Trade Name Freq PRN Reason Stop Dose Admin Lactated Ringer's 1,000 mls @ 999 mls/hr 08/22/23 16:56 08/22/23 17:05 Lactated Ringer's 1000 Ml Bag IV 08/22/23 17:56 999 mls/hr .Q1H1M ONE Administration Ondansetron HCl 4 mg 08/22/23 16:56 08/22/23 17:05 Ondansetron 4mg/2ml Vial IV 08/22/23 16:57 4 mg ONCE ONE Administration ORDERS Category Date Time Status Cardiology Consult [Consult to Cardiology] [CONS] Cons 08/22/23 18:35 Active Routine Chest XR -- portable [XR chest portable] Stat Exams 08/22/23 16:57 Completed CBC [Complete Blood Count Auto Diff] Stat Lab 08/22/23 17:13 Completed CMP [Comprehensive Metabolic Panel] Stat Lab 08/22/23 17:13 Completed Complete Blood Count Auto Diff AMLAB Lab 08/23/23 06:00 Ordered Comprehensive Metabolic Panel AMLAB Lab 08/23/23 06:00 Ordered D-Dimer Stat Lab 08/22/23 17:13 Completed Lactate Venous Stat Lab 08/22/23 16:58 Completed Lipase Stat Lab 08/22/23 17:13 Completed Magnesium AMLAB Lab 08/23/23 06:00 Ordered TSH [Thyroid Stimulating Hormone] Stat Lab 08/22/23 17:13 Completed Trop I [Troponin I] Stat Lab 08/22/23 17:13 Completed Troponin I Q3H Lab 08/22/23 20:00 Ordered Troponin I Q3H Lab 08/22/23 23:00 Ordered Urinalysis and Microscopic Stat Lab 08/22/23 16:56 Ordered ECG Data Tracing #1: I reviewed this ECG and interpreted as documented below: ECG initial impression date: 08/22/23 ECG initial impression time: 16:49 ECG normal with no acute: arrhythmias, ischemia, conduction abnormalities, chamber hypertrophy Normal Sinus Rhythm: Yes ECG compared to prior tracings: there are no significant changes Medical Decision Narrative: Immediately upon arrival patient is hemodynamically stable, alert, oriented, and states that aside from mild nausea, she is at her baseline with no increased weakness. Provided Zofran and 1 L of LR. Patient's comorbidities including history of CHF, COPD, frequent lightheadedness increase her risk of morbidity and complicate workup. Given her history and physical exam, considered multiple causes of patient's presentation including ACS, PE, cardiac arrhythmia, anemia, infectious causes such as pneumonia, UTI, orthostatic hypotension, metabolic and endocrinologic causes, among others. For this reason immediately upon arrival obtained EKG which I independently reviewed and interpreted as documented above and showed normal sinus rhythm. No ST segment elevation myocardial infarction. Also obtained labs including CBC, CMP, lipase, urinalysis, troponin, D-dimer, TSH. Ordered chest x-ray. On reassessment, patient continued to feel comfortable at rest but when attempting to obtain orthostatic vital signs she became hypotensive with blood pressure 66/46 and was unable to stand without assistance given lightheadedness. She continues to not have any lateralizing symptoms or vertigo, however she does have hypotension on standing concerning for orthostasis. Labs I independently reviewed and interpreted were reassuring for normal troponin, CMP, CBC, TSH, D-dimer. Chest x-ray independently reviewed and interpreted showed normal cardiac margins, no focal consolidations or effusions, nothing to explain her lightheadedness and near syncope. At this time she does not seem to have any emergent triggers of this acute worsening of her orthostatic hypotension, however she has persistent signs and symptoms and is unsafe for discharge with outpatient follow-up. I discussed this at length with patient and her family and she is amenable to admission. Consulted hospital medicine with interactive discussion and they agreed to admit the patient. She remained hemodynamically stable while sitting in the hospital bed until time of admission. Critical Care Critical Care Time Critical Care Time: No
[2023-08-22] MEDS: ONDANSETRON 4MG/2ML VIAL 4 MG IV (17:05)
[2023-08-22] MEDS: LACTATED RINGERS 1000ML 1,000 ML 999 ML IV (17:05)
[2023-08-22 17:26] LABS: Lactate Venous 1.9 mmol/L (0.4-2.0)
[2023-08-22 17:35] LABS: Basophils # 0.1 K/mm3 (0-0.2); Basophils % 1.2 % (0.1-2.0); D-Dimer 0.43 ug/mL (0.0-0.5); Eosinophils # 0.1 K/mm3 (0.0-0.4); Eosinophils % 1.7 % (0.1-12.0); Hematocrit 47.2 % (37.0-47.0); Lymphocytes # 1.7 K/mm3 (0.7-4.5); Lymphocytes % 27.6 % (10-50); Mean Corpuscular HGB Conc 31.8 g/dL (31.8-35.4); Mean Corpuscular Hemoglobin 33.2 pg (27.0-31.2); Mean Corpuscular Volume 104.4 fl (81-99); Mean Platelet Volume 8.4 fl (7.4-10.4); Monocytes # 0.3 K/mm3 (0.1-1.0); Monocytes % 4.2 % (1.7-9.3); Neutrophils % 65.3 % (37.0-80.0); Platelet Count 135 K/mm3 (142-424); Red Blood Count 4.52 M/mm3 (4.20-5.40); Red Cell Distribution Width 13.6 % (11.5-17.5); White Blood Count 6.1 K/mm3 (4.8-10.8)
--- NOTE | 2023-08-22 17:44 | PC.NURSE ---
i performed orthostatic pressures on pt. pt was stable while lying. pt became lightheaded when set up on the side of the stretcher. when performing the standing pressure pts symptoms became more prominent. pt became dizzy, she became a little slumped/weak but still conscious and talking. I noticed during this weakened episode her pupils were different sizes when she would look at me to talk. pts daughter and grand-daughter was standing beside her and assisting her in standing along with me. Pt got back on the stretcher and she stated her dizziness was going away.
--- NOTE | 2023-08-22 17:45 | PC.NURSE ---
DR CHU AT BEDSIDE
[2023-08-22 17:57] LABS: Chloride 111 mmol/L (98-107); Sodium 140 mmol/L (136-145)
[2023-08-22 17:58] LABS: Potassium 4.6 mmoL/L (3.5-5.1)
[2023-08-22 18:00] LABS: Alanine Aminotransferase 24 U/L (12-78); Albumin Level 3.9 g/dl (3.5-5.0); Albumin/Globulin Ratio 1.4 (1.1-1.8); Alkaline Phosphatase 69 U/L (38-126); Anion Gap 7.6 mEq/L (5-15); Aspartate Amino Transferase 44 U/L (14-36); Blood Urea Nitrogen 26 mg/dl (7-17); Calcium 9.7 mg/dl (8.4-10.2); Carbon Dioxide 26 mmol/L (22.0-30.0); Creatinine Clearance Estimated 52 mL/min (50-200); Estimated Glomerular Filt Rate 49 ml/min (>60); GFR (African American) 59 ML/MIN (>60); Globulin 2.8 g/dL (1.3-3.2); Glucose 117 mg/dl (74-100); Lipase 160 U/L (23-300); Total Protein,Serum 6.7 g/dl (6.3-8.2)
[2023-08-22 18:16] LABS: Troponin I < 0.01 ng/ml (0.00-0.034)
--- NOTE | 2023-08-22 18:31 | PC.NURSE ---
on phone with hospitalist for admission
--- NOTE | 2023-08-22 18:34 | PC.NURSE ---
ASH HANDLER NOTIFIED OF ADMISSION
--- NOTE | 2023-08-22 18:42 | PC.NURSE ---
REPORT RECIEVED FROM ER AT THIS TIME
--- NOTE | 2023-08-22 18:45 | PC.NURSE ---
ER STATED THAT THEY WOULD LET ME KNOW IF THEY WERE GOING TO BRING PT UP
--- NOTE | 2023-08-22 18:46 | PC.NURSE ---
report called to josefina on second floor
--- NOTE | 2023-08-22 19:06 | PC.NURSE ---
Patient arrived to floor via stretcher from ED at 18:55.
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
[2023-08-22 20:33] LABS: Troponin I < 0.01 ng/ml (0.00-0.034)
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
[2023-08-22] MEDS: ATORVASTATIN 20MG TABLET 20 MG PO (21:00)
[2023-08-22] MEDS: LEVOTHYROXINE 75MCG (0.075MG) TAB 75 MCG PO (21:00)
[2023-08-22] MEDS: LACTATED RINGERS 1000ML 1,000 ML 75 ML IV (21:36)
[2023-08-22 23:36] LABS: Troponin I 0.04 ng/ml (0.00-0.034)
[2023-08-23] VITALS: BP 118/65; PULSE 62; PULSE 70; RESP 20; TEMP 36.5; O2SAT 93
[2023-08-23 00:08] LABS: Microscopic, Urine URINE MICROSCOPIC (MICROSCOPIC)
[2023-08-23 00:14] LABS: Appearance,Urine SL CLOUDY (Clear); Bilirubin,Urine Negative (Negative); Blood, Urine Negative (Negative); Color,Urine YELLOW (Yellow); Glucose,Urine (UA) Negative (Negative); Ketones,Urine Negative (Negative); Leukocyte Esterase,Urine 2+ (Negative); Nitrate,Urine POSITIVE (Negative); Protein,Urine Negative (Negative); Specific Gravity, Urine 1.025 (1.005-1.030); Urobilinogen,Urine 0.2 EU/dl (0.2)
[2023-08-23 00:27] LABS: Bacteria,Urine 4+ /lpf; Squamous Epithelial Cell,Urine Occasional #/hpf (0-5)
[2023-08-23] MEDS: 0.9 % SODIUM CHLORIDE 1000ML 1,000 ML 75 ML IV (03:02)
[2023-08-23] MEDS: CEFTRIAXONE SODIUM 1 GM in 0.9 % SODIUM CHLORIDE 50 ML IV (03:02)
[2023-08-23 04:00] VITALS: BP 149/84; PULSE 55; PULSE 60; RESP 18; TEMP 36.4; O2SAT 95; BMI 26.4
--- NOTE | 2023-08-23 05:42 | PC.NURSE ---
Pt is alert and oriented x4 and is currently tolerating RA. Pt has tolerated fluids well and has no complaints, daughter at bedside.
[2023-08-23 06:49] LABS: Basophils % 0.7 % (0.1-2.0); Eosinophils # 0.1 K/mm3 (0.0-0.4); Eosinophils % 1.6 % (0.1-12.0); Hematocrit 41.3 % (37.0-47.0); Lymphocytes # 1.7 K/mm3 (0.7-4.5); Lymphocytes % 29.4 % (10-50); Mean Corpuscular HGB Conc 30.8 g/dL (31.8-35.4); Mean Corpuscular Hemoglobin 32.9 pg (27.0-31.2); Mean Corpuscular Volume 107.1 fl (81-99); Mean Platelet Volume 8.1 fl (7.4-10.4); Monocytes # 0.3 K/mm3 (0.1-1.0); Monocytes % 5.4 % (1.7-9.3); Neutrophils # 3.5 K/mm3 (1.8-7.8); Neutrophils % 62.8 % (37.0-80.0); Platelet Count 114 K/mm3 (142-424); Red Blood Count 3.86 M/mm3 (4.20-5.40); Red Cell Distribution Width 13.9 % (11.5-17.5); White Blood Count 5.6 K/mm3 (4.8-10.8)
[2023-08-23 06:53] LABS: Hemoglobin 12.7 g/dL (12.2-16.2)
[2023-08-23 06:57] LABS: Chloride 113 mmol/L (98-107); Sodium 138 mmol/L (136-145)
[2023-08-23 06:59] LABS: Alanine Aminotransferase 15 U/L (12-78); Aspartate Amino Transferase 26 U/L (14-36); Blood Urea Nitrogen 26 mg/dl (7-17); Creatinine Clearance Estimated 55 mL/min (50-200); Estimated Glomerular Filt Rate 54 ml/min (>60); GFR (African American) 66 ML/MIN (>60)
[2023-08-23 07:00] LABS: Albumin Level 3.2 g/dl (3.5-5.0); Albumin/Globulin Ratio 1.3 (1.1-1.8); Alkaline Phosphatase 65 U/L (38-126); Bilirubin,Total 0.5 mg/dl (0.2-1.3); Calcium 8.9 mg/dl (8.4-10.2); Carbon Dioxide 24 mmol/L (22.0-30.0); Globulin 2.4 g/dL (1.3-3.2); Glucose 87 mg/dl (74-100); Magnesium 1.8 mg/dl (1.6-2.3); Total Protein,Serum 5.6 g/dl (6.3-8.2)
[2023-08-23 07:39] VITALS: BP 170/80; PULSE 69; RESP 17; TEMP 36.4; O2SAT 98
[2023-08-23 08:00] VITALS: PULSE 60
--- NOTE | 2023-08-23 08:08 | HMH.PHAINT1 ---
Pharmacy Intervention Comments: MEDICATION RECONCILIATION COMPLETED ON PATIENT USING EXTERNAL FILL HISTORY FROM PHARMACY. -ELZA CONTRERAS, TRENTD
[2023-08-23] MEDS: ASPIRIN EC 81MG TABLET 81 MG PO (09:13)
--- NOTE | 2023-08-23 11:04 | EXP.CARD.CON ---
History of Present Illness History of Present Illness Consult date: 08/23/23 Requesting physician: Rafi Singh Chief complaint: syncope History of present illness: This is a 73-year-old white female presented to the emergency department with complaints of a syncopal episode. She has a past medical history of hypertension, hyperlipidemia and heart failure with preserved ejection fraction. The patient states that she has been frequently dizzy for quite some time. She states that she also feels lightheaded all the time. She states that she was at the dinner table yesterday when she got suddenly very dizzy, lightheaded and nauseated. She states that she felt like her vision was going to go out and she got very clammy and diaphoretic. She states that her grandson helped her to the floor. She does not believe that she lost consciousness but her daughter states that she did. She was unable to ambulate after her grandson helped her to the floor and then she had 3 episodes of vomiting. The patient states that she frequently feels like this where she feels as if she is going to pass out. She denies any chest pain or pressure. She denies any shortness of breath or edema. She denies any fever, chills, diarrhea, PND or orthopnea. The patient and her family report that she was orthostatic in the emergency department and that when she stood up her systolic blood pressure dropped to 64 mmHg. She also had orthostatic blood pressures obtained while she has been hospitalized and her systolic blood pressure was in the 160s while sitting and then when she stood up her systolic blood pressure dropped to 117 mmHg. The patient also reports that she has been very depressed lately. She has a lot of social issues going on at home and feels that she is useless. No thoughts of harming herself or anyone else. [facility] Disclaimer: The information contained in this section may have been updated after the patient was seen, as this information can be updated by other users. Medical History (Updated 08/23/23 @ 11:15 by Naomi Jacob APRN) Orthostatic hypotension Depression (HFpEF) heart failure with preserved ejection fraction Syncope Hypotension Dizziness COPD (chronic obstructive pulmonary disease) Pulmonary HTN Ex-smoker Sinus bradycardia Abnormal EKG Elevated troponin Dyspnea Atypical angina NSTEMI (non-ST elevated myocardial infarction) Congestive heart failure Social History (Updated 04/11/24 @ 20:00 by Jacque Richardson RN) Smoking Status: Former smoker second hand exposure: No alcohol intake: never current occupational status: disabled Travel in the last 8 weeks: None household members: spouse housing: house current occupational exposures/hazards: No caffeine: No Review of Systems Review of Systems Review of systems:: pertinent systems reviewed and negative unless documented below Constitutional Constitutional: Reports system reviewed and no additional complaints, except as documented, Reports excessive sweating, Reports fatigue, Reports lethargy and Reports weakness Eyes Eyes: Reports system reviewed and no additional complaints, except as documented and Reports blurry vision ENT Ears, Nose, Mouth, and Throat: Reports system reviewed and no additional complaints, except as documented, Reports disequilibrium, Reports dizziness and Reports vertigo *Cardiovascular Cardiovascular: Reports system reviewed and no additional complaints, except as documented, Denies chest pain, Reports diaphoresis, Denies dyspnea and Reports lightheadedness *Respiratory Respiratory: Reports system reviewed and no additional complaints, except as documented and Denies dyspnea *Gastrointestinal Gastrointestinal: Reports system reviewed and no additional complaints, except as documented, Reports nausea and Reports vomiting *Genitourinary Genitourinary: Reports system reviewed and no additional complaints, except as documented *Musculoskeletal Musculoskeletal: Reports system reviewed and no additional complaints, except as documented Integumentary/Breasts Skin/Breast: Reports system reviewed and no additional complaints, except as documented *Neurologic Neurologic: Reports system reviewed and no additional complaints, except as documented, Reports as per HPI, Reports disequilibrium, Reports dizziness, Denies seizure-like activity, Reports vertigo, Reports weakness and Reports other (syncope) Psychiatric Psychiatric: Reports system reviewed and no additional complaints, except as documented Endocrine Endocrine: Reports system reviewed and no additional complaints, except as documented, Reports excessive sweating and Reports fatigue Hematologic/Lymphatic Hematologic/Lymphatic: Reports system reviewed and no additional complaints, except as documented Allergic/Immunologic Allergic/Immunologic: Reports system reviewed and no additional complaints, except as documented Exam Data for Last 24 hours Vital signs and Labs for Last 24 Hours: Temp Pulse Resp BP Pulse Ox O2 Del Method 97.5 F L 60 17 170/80 H 98 Room Air 08/23/23 07:39 08/23/23 08:00 08/23/23 07:39 08/23/23 07:39 08/23/23 07:39 08/23/23 10:08 Laboratory Results - last 24 hr 08/22/23 16:58: VBG Lactic Acid 1.9 08/22/23 17:13: WBC 6.1, RBC 4.52, Hgb 15.0, Hct 47.2 H, MCV 104.4 H, MCH 33.2 H, MCHC 31.8, RDW 13.6, Plt Count 135 L, MPV 8.4, Neut % (Auto) 65.3, Lymph % (Auto) 27.6, Graves % (Auto) 4.2, Eos % (Auto) 1.7, Baso % (Auto) 1.2, Neut # (Auto) 4.0, Lymph # (Auto) 1.7, Graves # (Auto) 0.3, Eos # (Auto) 0.1, Baso # (Auto) 0.1, D-Dimer 0.43, Sodium 140, Potassium 4.6, Chloride 111 H, Carbon Dioxide 26, Anion Gap 7.6, BUN 26 H, Creatinine 1.10 H, Estimated Creat Clear 52, Estimated GFR 49 L, Est GFR ( Amer) 59, Glucose 117 H, Calcium 9.7, Total Bilirubin 1.0, AST 44 H, ALT 24, Alkaline Phosphatase 69, Troponin I < 0.01, Total Protein 6.7, Albumin 3.9, Globulin 2.8, Albumin/Globulin Ratio 1.4, Lipase 160, TSH 0.80 08/22/23 19:53: Troponin I < 0.01 08/22/23 23:04: Troponin I 0.04 H 08/23/23 00:00: Urine Color Yellow, Urine Appearance Sl cloudy, Urine pH 6.0, Ur Specific Mallie 1.025, Urine Protein Negative, Urine Glucose (UA) Negative, Urine Ketones Negative, Urine Blood Negative, Urine Nitrate Positive, Urine Bilirubin Negative, Urine Urobilinogen 0.2, Ur Leukocyte Esterase 2+ A, Urine RBC None, Urine WBC 5-10, Ur Squamous Epith Cells Occasional, Urine Bacteria 4+ 08/23/23 06:26: WBC 5.6, RBC 3.86 L, Hgb 12.7 D, Hct 41.3, MCV 107.1 H, MCH 32.9 H, MCHC 30.8 L, RDW 13.9, Plt Count 114 L, MPV 8.1, Neut % (Auto) 62.8, Lymph % (Auto) 29.4, Graves % (Auto) 5.4, Eos % (Auto) 1.6, Baso % (Auto) 0.7, Neut # (Auto) 3.5, Lymph # (Auto) 1.7, Graves # (Auto) 0.3, Eos # (Auto) 0.1, Baso # (Auto) 0.0, Sodium 138, Potassium 4.0, Chloride 113 H, Carbon Dioxide 24, Anion Gap 5.0, BUN 26 H, Creatinine 1.00, Estimated Creat Clear 55, Estimated GFR 54 L, Est GFR ( Amer) 66, Glucose 87 D, Calcium 8.9, Magnesium 1.8, Total Bilirubin 0.5, AST 26 D, ALT 15 D, Alkaline Phosphatase 65, Total Protein 5.6 L, Albumin 3.2 L D, Globulin 2.4, Albumin/Globulin Ratio 1.3 I & O for Last 24 hours: Intake & Output 08/20/23 08/21/23 08/22/23 08/23/23 23:59 23:59 23:59 23:59 Intake Total 240 / 240 Output Total 200 / 200 Balance 40 / 40 Weight 143 lb 6 oz 154 lb 9.6 oz Constitutional Constitutional: no acute distress and average body habitus *Routine HEENT Exam Head: Present normocephalic and atraumatic ENT: Present mucous membranes moist *Routine Neck Exam Neck: Present supple, full ROM and normal carotid upstroke; Absent JVD, carotid bruit or lymphadenopathy *Routine Respiratory Exam Respiratory: Present CTA bilaterally, normal respiratory effort, able to speak in complete sentences and symmetric chest movement *Routine Cardiovascular Exam Cardiovascular: Present RRR, Normal S1 and Normal S2; Absent murmur or gallop *Routine Abdominal Exam Abdominal: Present soft and normoactive bowel sounds; Absent tenderness, distended or organomegaly *Routine Extremities Exam Extremities: Present full ROM, pulses intact and normal capillary refill; Absent cyanosis, clubbing or edema *Routine Skin Exam Skin: Present intact and warm; Absent erythema *Routine Neurological Exam Neurological: Present alert, oriented X3 and CN II-XII intact; Absent sensory deficit or motor deficit Routine Psychiatric Exam Psychiatric: Present normal affect Meds Home Medications and Allergies Home Medications Medication Instructions Recorded Confirmed Type aspirin 81 mg tablet,delayed 81 mg PO DAILY 05/09/19 08/22/23 History release atorvastatin 20 mg tablet 20 mg PO HS 05/09/19 08/23/23 History cyanocobalamin (vitamin B-12) 1,000 mcg PO DAILY 05/09/19 08/22/23 History 1,000 mcg capsule levothyroxine 75 mcg tablet 75 mcg PO DAILY 09/22/21 08/23/23 History sertraline 100 mg tablet 50 mg PO DAILY 12/29/21 08/22/23 History gabapentin 300 mg capsule 300 mg PO TID 07/23/23 08/23/23 History buspirone 5 mg tablet 5 mg PO TID 08/23/23 08/23/23 History loratadine 10 mg tablet (Claritin) 10 mg PO DAILY 08/23/23 08/23/23 History potassium chloride 10 mEq 20 meq PO BID 08/23/23 08/23/23 History tablet,extended release valsartan 80 mg tablet 80 mg PO DAILY 08/23/23 08/23/23 History New Prescriptions to Start Prescriptions: Allergies Allergy/AdvReac Type Severity Reaction Status Date / Time No Known Allergies Allergy Verified 07/23/23 13:43 Assessment and Plan *Assessment and plan (1) Syncope: Status: Acute Qualifiers: Syncope type: unspecified Qualified Code(s): R55 - Syncope and collapse Category: Medical Code(s): R55 - Syncope and collapse (2) HLD (hyperlipidemia): Status: Chronic Qualifiers: Hyperlipidemia type: mixed hyperlipidemia Qualified Code(s): E78.2 - Mixed hyperlipidemia Category: Medical Code(s): E78.5 - Hyperlipidemia, unspecified (3) HTN (hypertension): Status: Chronic Qualifiers: Hypertension type: primary hypertension Qualified Code(s): I10 - Essential (primary) hypertension Category: Medical Code(s): I10 - Essential (primary) hypertension (4) COPD (chronic obstructive pulmonary disease): Status: Chronic Qualifiers: COPD type: unspecified COPD Qualified Code(s): J44.9 - Chronic obstructive pulmonary disease, unspecified Category: Medical Code(s): J44.9 - Chronic obstructive pulmonary disease, unspecified (5) Pulmonary HTN: Status: Acute Category: Medical Code(s): I27.20 - Pulmonary hypertension, unspecified (6) (HFpEF) heart failure with preserved ejection fraction: Status: Acute Qualifiers: Heart failure chronicity: chronic Qualified Code(s): I50.32 - Chronic diastolic (congestive) heart failure Category: Medical Code(s): I50.30 - Unspecified diastolic (congestive) heart failure (7) Depression: Status: Acute Qualifiers: Major depression recurrence: single episode Active/Remission status: currently active Major depression episode severity: moderate Category: Medical Code(s): F32.A - Depression, unspecified (8) Orthostatic hypotension: Status: Acute Category: Medical Code(s): I95.1 - Orthostatic hypotension Plan Plan: 1. The patient was admitted to the hospital with a syncopal episode. The patient does have evidence of orthostatic hypotension. Will stop her valsartan and switch her to amlodipine 2.5 mg p.o. daily to see if this helps with her orthostasis since her blood pressure is elevated now that all of her antihypertensive medications have been stopped. 2. The patient had a recent echocardiogram which shows a normal ejection fraction and mild MR. 3. The patient is on buspirone which can also cause orthostatic hypotension. We have encouraged the patient and her family to talk with her prescribing provider to see if there is a different medication she could try in place of the buspirone for her depression. 4. The patient is having a lot of issues with her depression at this time. She has voiced that she feels useless and has a lot of social issues at home. The psych nurse practitioner is going to evaluate the patient today. Her increased levels of depression may also be contributing to her syncope as well. 5. Due to her syncope we can place a 2-week event monitor at discharge. She has had no evidence of bradycardia at this time. 6. As mentioned above her blood pressure is elevated today since her valsartan has been stopped and we will try amlodipine 2.5 mg daily to see if she can tolerate this medication without significant orthostasis. 7. She denies any chest pain or pressure. No plans for invasive left cardiac catheterization at this time. 8. No further recommendations at this time from a cardiac standpoint. The patient is stable for discharge home today from a cardiac standpoint with a 2-week event monitor in place. 9. The patient can be discharged on the following cardiac medications: Aspirin 81 mg daily, Lipitor 20 mg p.o. nightly, amlodipine 2.5 mg daily. Thank you for the opportunity to help participate in the care of this patient. All recommendations and orders are per Dr. Price.
[2023-08-23 11:34] VITALS: BP 141/60; PULSE 71; RESP 19; TEMP 36.5; O2SAT 100
--- NOTE | 2023-08-23 11:45 | EXP.DC.SUM ---
General Admission date:: 08/22/23 Discharge date: 08/23/23 HPI HPI HPI: This is a 73-year-old female with past medical history of hypertension, diastolic heart failure, HTN, HLD, COPD, complaints of frequent dizziness and lightheadedness who presents emergency department with complaints of near syncope. Daughter at bedside aids and collateral information states that patient had gotten up from the dinner table and suddenly became very lightheaded and nauseated. She felt that her vision was going out and her grandson helped her to the floor. They do not believe that she lost consciousness but was unable to ambulate after secondary to lightheadedness and nausea. They also report that she vomited 3 times. She complains of multiple episodes of this frequently and states that the episode tonight was not the worst of her normal. After further chart review, she has been seen by cardiology recently. She has had a recent echo with a normal EF. She has been on valsartan which they are now titrating down. No focal deficits noted to her exam, unlikely that there is current neuro involvement. Of note, it is reported that while in the emergency department orthostatic vital signs were obtained and she was noted to drop her systolic blood pressure in the 60s. Unfortunately these numbers have not been charted but this information was verified by her family member who is at the bedside when this happened. They stated her blood pressure dropped to 64 systolic and she became dizzy. Further workup in the emergency department unremarkable. Given these complaints, and her subjective orthostasis, she will be admitted to hospitalist service for further evaluation management. Hospital Course Hospital Course Hospital Course: Patient had syncopal event at home. Presented to the ER for evaluation. Discussed case with ER physician, request admission for monitoring of vitals. Urine obtained showing concern for UTI. Medicine agreed to admit for further management. Initiated on IV antibiotics. Showing clinical improvement. White cell count normal. Stable to transition oral medications and discharge home. Problems addressed as follows: Urinary tract infection: Urine grossly abnormal, 2+ leuk esterase, positive nitrate, 4+ bacteria. Has grown E. coli in the past. Was initiated on ceftriaxone. Transitioned to cefdinir at discharge to complete antibiotic course. Will follow cultures after discharge. # Near syncope # Hypertension # Hyperlipidemia Patient reports likely orthostatic symptoms upon rising at home. Patient reportedly had a drop in blood pressure with standing in the ER to systolic in the 60s. Orthostatics repeated on the floor patient did have a drop in blood pressure from 160s to 117 with standing. Heart rate stable. received 1 L of IV fluids in the emergency department prior to admission with improvement in blood pressure. Changes made to blood pressure regimen with the assistance of cardiology. Holding valsartan. Initiate amlodipine 2.5 mg twice daily. Further management as an outpatient. Follow-up with cardiology in the next 1 to 2 weeks. Event monitor placed at discharge # Chronic diastolic heart failure Appears euvolemic at this time, will hold diuresis given hypotension during admission. Resume at discharge. Recent echocardiogram with normal EF # Depression Patient with active depression. She reports feeling threatened by people that live close to her. States that people surrounding her at home use language around her and make her feel useless. Patient does have family at bedside but patient reports that the people with her are not bad to her. States that her daughter, whom is at bedside, has been very helpful. Daughter at the bedside seems engaged appropriately and concerned. Patient referred to behavioral health, has follow-up in the coming weeks. Adjustments made to her Zoloft. Monitor for improvement with medication changes. Extensive counseling and discussion time with family on day of discharge. Total time spent on discharge 32 minutes in counseling, documentation, chart review, and direct care with patient. Exam Data for Last 24 hours Vital signs and Labs for Last 24 Hours: Temp Pulse Resp BP Pulse Ox O2 Del Method 97.7 F 71 19 141/60 H 100 Room Air 08/23/23 11:34 08/23/23 11:34 08/23/23 11:34 08/23/23 11:34 08/23/23 11:34 08/23/23 11:34 Laboratory Results - last 24 hr 08/22/23 16:58: VBG Lactic Acid 1.9 08/22/23 17:13: WBC 6.1, RBC 4.52, Hgb 15.0, Hct 47.2 H, MCV 104.4 H, MCH 33.2 H, MCHC 31.8, RDW 13.6, Plt Count 135 L, MPV 8.4, Neut % (Auto) 65.3, Lymph % (Auto) 27.6, [place] % (Auto) 4.2, Eos % (Auto) 1.7, Baso % (Auto) 1.2, Neut # (Auto) 4.0, Lymph # (Auto) 1.7, [place] # (Auto) 0.3, Eos # (Auto) 0.1, Baso # (Auto) 0.1, D-Dimer 0.43, Sodium 140, Potassium 4.6, Chloride 111 H, Carbon Dioxide 26, Anion Gap 7.6, BUN 26 H, Creatinine 1.10 H, Estimated Creat Clear 52, Estimated GFR 49 L, Est GFR ( Amer) 59, Glucose 117 H, Calcium 9.7, Total Bilirubin 1.0, AST 44 H, ALT 24, Alkaline Phosphatase 69, Troponin I < 0.01, Total Protein 6.7, Albumin 3.9, Globulin 2.8, Albumin/Globulin Ratio 1.4, Lipase 160, TSH 0.80 08/22/23 19:53: Troponin I < 0.01 08/22/23 23:04: Troponin I 0.04 H 08/23/23 00:00: Urine Color Yellow, Urine Appearance Sl cloudy, Urine pH 6.0, Ur Specific [place]ches 1.025, Urine Protein Negative, Urine Glucose (UA) Negative, Urine Ketones Negative, Urine Blood Negative, Urine Nitrate Positive, Urine Bilirubin Negative, Urine Urobilinogen 0.2, Ur Leukocyte Esterase 2+ A, Urine RBC None, Urine WBC 5-10, Ur Squamous Epith Cells Occasional, Urine Bacteria 4+ 08/23/23 06:26: WBC 5.6, RBC 3.86 L, Hgb 12.7 D, Hct 41.3, MCV 107.1 H, MCH 32.9 H, MCHC 30.8 L, RDW 13.9, Plt Count 114 L, MPV 8.1, Neut % (Auto) 62.8, Lymph % (Auto) 29.4, [place] % (Auto) 5.4, Eos % (Auto) 1.6, Baso % (Auto) 0.7, Neut # (Auto) 3.5, Lymph # (Auto) 1.7, [place] # (Auto) 0.3, Eos # (Auto) 0.1, Baso # (Auto) 0.0, Sodium 138, Potassium 4.0, Chloride 113 H, Carbon Dioxide 24, Anion Gap 5.0, BUN 26 H, Creatinine 1.00, Estimated Creat Clear 55, Estimated GFR 54 L, Est GFR ( Amer) 66, Glucose 87 D, Calcium 8.9, Magnesium 1.8, Total Bilirubin 0.5, AST 26 D, ALT 15 D, Alkaline Phosphatase 65, Total Protein 5.6 L, Albumin 3.2 L D, Globulin 2.4, Albumin/Globulin Ratio 1.3 I & O for Last 24 hours: Intake & Output 08/20/23 08/21/23 08/22/23 08/23/23 23:59 23:59 23:59 23:59 Intake Total 240 / 240 Output Total 200 / 200 Balance 40 / 40 Weight 65.034 kg 70.125 kg Constitutional Constitutional: no acute distress, average body habitus, chronically ill appearing and cooperative *Routine HEENT Exam Head: Present normocephalic Eye: Present EOMI and PERRL ENT: Present mucous membranes moist *Routine Neck Exam Neck: Present supple; Absent lymphadenopathy *Routine Respiratory Exam Respiratory: Present CTA bilaterally; Absent rhonchi, wheezes or crackles *Routine Cardiovascular Exam Cardiovascular: Present RRR *Routine Abdominal Exam Abdominal: Present soft and normoactive bowel sounds; Absent tenderness *Routine Rectal Exam Patient deferred: visual exam *Routine Exam Patient deferred: external exam *Routine Extremities Exam Extremities: Present edema (trace); Absent cyanosis or clubbing *Routine Skin Exam Skin: Present warm; Absent rash *Routine Neurological Exam Neurological: Present alert, oriented X3 and moving all extremities; Absent altered mental status Routine Psychiatric Exam Psychiatric: Present depressed Results Data Completed and Pending Labs on day of discharge: Labs from last 24 hours 08/23/23 08/23/23 08/22/23 06:26 00:00 23:04 WBC 5.6 RBC 3.86 L Hgb 12.7 D Hct 41.3 MCV 107.1 H MCH 32.9 H MCHC 30.8 L RDW 13.9 Plt Count 114 L MPV 8.1 Neut % (Auto) 62.8 Lymph % (Auto) 29.4 [place] % (Auto) 5.4 Eos % (Auto) 1.6 Baso % (Auto) 0.7 Neut # (Auto) 3.5 Lymph # (Auto) 1.7 [place] # (Auto) 0.3 Eos # (Auto) 0.1 Baso # (Auto) 0.0 D-Dimer VBG Lactic Acid Sodium 138 Potassium 4.0 Chloride 113 H Carbon Dioxide 24 Anion Gap 5.0 BUN 26 H Creatinine 1.00 Estimated Creat Clear 55 Estimated GFR 54 L Est GFR ( Amer) 66 Glucose 87 D Calcium 8.9 Magnesium 1.8 Total Bilirubin 0.5 AST 26 D ALT 15 D Alkaline Phosphatase 65 Troponin I 0.04 H Total Protein 5.6 L Albumin 3.2 L D Globulin 2.4 Albumin/Globulin Ratio 1.3 Lipase TSH Urine Color Yellow Urine Appearance Sl cloudy Urine pH 6.0 Ur Specific [place] 1.025 Urine Protein Negative Urine Glucose (UA) Negative Urine Ketones Negative Urine Blood Negative Urine Nitrate Positive Urine Bilirubin Negative Urine Urobilinogen 0.2 Ur Leukocyte Esterase 2+ A Urine RBC None Urine WBC 5-10 Ur Squamous Epith Cells Occasional Urine Bacteria 4+ 08/22/23 08/22/23 08/22/23 19:53 17:13 16:58 WBC 6.1 RBC 4.52 Hgb 15.0 Hct 47.2 H MCV 104.4 H MCH 33.2 H MCHC 31.8 RDW 13.6 Plt Count 135 L MPV 8.4 Neut % (Auto) 65.3 Lymph % (Auto) 27.6 [place] % (Auto) 4.2 Eos % (Auto) 1.7 Baso % (Auto) 1.2 Neut # (Auto) 4.0 Lymph # (Auto) 1.7 [place] # (Auto) 0.3 Eos # (Auto) 0.1 Baso # (Auto) 0.1 D-Dimer 0.43 VBG Lactic Acid 1.9 Sodium 140 Potassium 4.6 Chloride 111 H Carbon Dioxide 26 Anion Gap 7.6 BUN 26 H Creatinine 1.10 H Estimated Creat Clear 52 Estimated GFR 49 L Est GFR ( Amer) 59 Glucose 117 H Calcium 9.7 Magnesium Total Bilirubin 1.0 AST 44 H ALT 24 Alkaline Phosphatase 69 Troponin I < 0.01 < 0.01 Total Protein 6.7 Albumin 3.9 Globulin 2.8 Albumin/Globulin Ratio 1.4 Lipase 160 TSH 0.80 Urine Color Urine Appearance Urine pH Ur Specific [place] Urine Protein Urine Glucose (UA) Urine Ketones Urine Blood Urine Nitrate Urine Bilirubin Urine Urobilinogen Ur Leukocyte Esterase Urine RBC Urine WBC Ur Squamous Epith Cells Urine Bacteria DS: Diagnosis Discharge Diagnosis (1) Syncope: Status: Acute Code(s): R55 - Syncope and collapse Qualifiers: Syncope type: unspecified Qualified Code(s): R55 - Syncope and collapse (2) HLD (hyperlipidemia): Status: Chronic Code(s): E78.5 - Hyperlipidemia, unspecified Qualifiers: Hyperlipidemia type: mixed hyperlipidemia Qualified Code(s): E78.2 - Mixed hyperlipidemia (3) HTN (hypertension): Status: Chronic Code(s): I10 - Essential (primary) hypertension Qualifiers: Hypertension type: primary hypertension Qualified Code(s): I10 - Essential (primary) hypertension (4) COPD (chronic obstructive pulmonary disease): Status: Chronic Code(s): J44.9 - Chronic obstructive pulmonary disease, unspecified Qualifiers: COPD type: unspecified COPD Qualified Code(s): J44.9 - Chronic obstructive pulmonary disease, unspecified (5) Pulmonary HTN: Status: Acute Code(s): I27.20 - Pulmonary hypertension, unspecified (6) (HFpEF) heart failure with preserved ejection fraction: Status: Acute Code(s): I50.30 - Unspecified diastolic (congestive) heart failure Qualifiers: Heart failure chronicity: chronic Qualified Code(s): I50.32 - Chronic diastolic (congestive) heart failure (7) Depression: Status: Acute Code(s): F32.A - Depression, unspecified Qualifiers: Active/Remission status: currently active Major depression episode severity: moderate Major depression recurrence: single episode (8) Orthostatic hypotension: Status: Acute Code(s): I95.1 - Orthostatic hypotension Meds Home Medications and Allergies Home Medications Medication Instructions Recorded Confirmed Type aspirin 81 mg tablet,delayed 81 mg PO DAILY 05/09/19 08/22/23 History release atorvastatin 20 mg tablet 20 mg PO HS 05/09/19 08/23/23 History cyanocobalamin (vitamin B-12) 1,000 mcg PO DAILY 05/09/19 08/22/23 History 1,000 mcg capsule levothyroxine 75 mcg tablet 75 mcg PO DAILY 09/22/21 08/23/23 History gabapentin 300 mg capsule 300 mg PO TID 07/23/23 08/23/23 History amlodipine 2.5 mg tablet 2.5 mg PO DAILY 30 days #30 tabs 08/23/23 Rx cefdinir 300 mg capsule 300 mg PO BID 6 days #12 caps 08/23/23 Rx loratadine 10 mg tablet (Claritin) 10 mg PO DAILY 08/23/23 08/23/23 History potassium chloride 10 mEq 20 meq PO BID 08/23/23 08/23/23 History tablet,extended release sertraline 100 mg tablet 100 mg PO DAILY 30 days #30 tabs 08/23/23 Rx New Prescriptions to Start Prescriptions: amlodipine Rafi Singh cefdinir Rafi Singh sertraline Rafi Singh Allergies Allergy/AdvReac Type Severity Reaction Status Date / Time No Known Allergies Allergy Verified 07/23/23 13:43 Discharge Plan Disposition Patient Disposition: Home, Self-Care Condition: Fair Follow up Plan Follow up with: Zenobia He APRN [Referring] - 09/20/23 11:30 am Jeison Cullen MD [Primary Care Provider] - 08/27/23 12:00 pm Prescriptions/Medication Reconciliation: New sertraline 100 mg Tablet 100 mg PO DAILY 30 Days Qty: 30 0RF amlodipine 2.5 mg Tablet 2.5 mg PO DAILY 30 Days Qty: 30 0RF cefdinir 300 mg capsule 300 mg PO BID 6 Days Qty: 12 0RF Continued gabapentin 300 mg capsule 300 mg PO TID atorvastatin 20 MG tablet 20 mg PO HS aspirin 81 MG tablet,delayed release (DR/EC) 81 mg PO DAILY cyanocobalamin (vitamin B-12) 1,000 MCG capsule 1,000 mcg PO DAILY levothyroxine 75 MCG tablet 75 mcg PO DAILY loratadine [Claritin] 10 mg Tablet 10 mg PO DAILY potassium chloride 10 mEq tablet extended release 20 meq PO BID Discontinued sertraline 100 mg tablet 50 mg PO DAILY buspirone 5 mg Tablet 5 mg PO TID valsartan 80 mg tablet 80 mg PO DAILY Problem Reconciliation Problems Reviewed?: Yes Patient Discharge Instructions ACTIVITY: Continue current activity DIET: continue same diet Patient Instructions: DI for Syncope in Adults (Fainting), DI for Urinary Tract Infection (UTI), DI for Hypotension Providers Primary Care Provider: Jeison Cullen Admit Provider: Rafi Singh Attending Provider: Rafi Singh
[2023-08-23 12:00] VITALS: PULSE 70
[2023-08-23] MEDS: AMLODIPINE 2.5MG TABLET 2.5 MG PO (12:04)
[2023-08-23] MEDS: SERTRALINE 100MG TABLET 100 MG PO (12:04)
--- NOTE | 2023-08-23 13:14 | PC.NURSE ---
Pharmacy called an iv removed.
--- NOTE | 2023-08-23 13:36 | SW/DCPLANNER ---
Addendum entered by Carol Ann Taylor 08/23/23 14:14: Amanda jauregui/ [facility] stated that services will start Saturday08/26/23 for this patient. Original Note: MD ordered home health services for this patient. Patient/daughter are agreeable to home health services. Patient information/order will be faxed to [facility] today. Patient will discharge this afternoon.
--- NOTE | 2023-08-23 13:49 | PC.NURSE ---
RESP CARE NOTE: 2 week event monitor placed on patient. Patient and daughter instructed, both state understanding.
--- NOTE | 2023-08-26 13:03 | SW/DCPLANNER ---
Follow up phone call: patient's daughter stated that patient is doing well at home at this time. Daughter stated that home health was there today to start services. Patient did not have any further needs/questions at this time.
--- NOTE | 2023-08-27 01:19 | PC.NURSE ---
received final urine culture report and fwd to hospitalist group
== END 2023-08-23 13:54 | disposition home health service (06) ==
LOC: ER 16:53 → 2ND 18:47
PROVIDERS: Admitting Provider Internal Medicine Adolescent Medicine; Emergency Provider Emergency Medicine; PCP Internal Medicine Adolescent Medicine; Visit Provider Internal Medicine Adolescent Medicine
DX: R55 Syncope and collapse (principal); E78.2 Mixed hyperlipidemia; I11.0 Hypertensive heart disease with heart failure; J44.9 Chronic obstructive pulmonary disease, unspecified; I27.20 Pulmonary hypertension, unspecified; I50.32 Chronic diastolic (congestive) heart failure; F32.A Depression, unspecified; I95.1 Orthostatic hypotension; N39.0 Urinary tract infection, site not specified; Z79.899 Other long term (current) drug therapy; Z87.891 Personal history of nicotine dependence
CPT/HCPCS: 36415; 71045; 80053; 81001; 83605; 83690; 83735; 84443; 84484; 85025; 85378; 87086; 93005; 93270; 99285; G0378; J0696; J2405

== ENCOUNTER 2023-10-17 12:27 | Emergency (ER) | payer MEDICARE, BC, SELFPAY ==
[2023-10-17] VITALS (9 sets, daily range): BP systolic 136–179; BP diastolic 68–81; PULSE 64–73; RESP 9–20; TEMP 36.4; O2SAT 94–98; BMI 24.2
--- NOTE | 2023-10-17 12:30 | ECG_ITS ---
APPROVED REPORT Exam: Resting ECG HR:70 bpm ECG Measurements Heart Rate 70 AXES FL 139 P -59 QRSd 73 QRS 54 QT 380 T 53 QTc 401 Conclusion Sinus rhythm Electronically signed by : VIJAY JAMES, 10/18/2023 08:30:50
--- NOTE | 2023-10-17 12:51 | PC.NURSE ---
DR JAMES AT BEDSIDE
--- NOTE | 2023-10-17 13:01 | [facility].EDCP ---
Discharge Plan Disposition Patient Disposition: Home, Self-Care Condition: Good Prescriptions Prescriptions: No Action gabapentin 300 mg capsule 300 mg PO TID atorvastatin 20 MG tablet 20 mg PO HS aspirin 81 MG tablet,delayed release (DR/EC) 81 mg PO DAILY cyanocobalamin (vitamin B-12) 1,000 MCG capsule 1,000 mcg PO DAILY levothyroxine 75 MCG tablet 75 mcg PO DAILY loratadine [Claritin] 10 mg Tablet 10 mg PO DAILY potassium chloride 10 mEq tablet extended release 20 meq PO BID sertraline 100 mg Tablet 100 mg PO DAILY 30 Days Qty: 30 0RF amlodipine 2.5 mg Tablet 2.5 mg PO DAILY 30 Days Qty: 30 0RF cefdinir 300 mg capsule 300 mg PO BID 6 Days Qty: 12 0RF Referrals Follow up/Referrals: Fay Robertson APRN [Primary Care Provider] - See instructions Activity Restrictions/Add. Instructions Additional Instructions/Restrictions: You were evaluated in the emergency department today. At this time, your workup is reassuring. Heart enzymes were negative, and your D-dimer was also negative. Please follow-up very closely with cardiology as well as your primary care provider. Return to the emergency department for any new or worsening symptoms Clinical Impressions Clinical Impression: Chest pain Instructions Patient Instructions: DI for Chest Pain Discharge ED Provider: Janie Lorenzo HPI <Yohannes Guillen MD - Last Filed: 10/17/23 15:06> General Chief Complaint: Chest Pain Stated Complaint: cp Time Seen by Provider: 10/17/23 12:32 Mode of Arrival: Family Vehicle Source of Information: Patient, Spouse and Medical Record Limitations: No Limitations Description of Symptoms (Recalled from ER Triage Doc. by RN): Pt c/o midsternal chest pain that began this afternoon while laying in bed @ approx 1200. States the pain was sharp initally. EMS states her pain went from a 3 to 1/10 on [employer] while in route to ER. Pt denies any pain at this time. Denies any SOA or back/ABD pain. Denies any N/V/D. History of Present Illness HPI narrative: Please note that above description of symptoms, in this electronic medical record under categorization of recalled from ER triage doctor by RN are reflective of an initial nursing assessment, however, is not reflective of my full history and physical exam that was personally taken and clarified. Consequentially, this preceding description of symptoms, which may include the patient's categorized chief complaint in the EMR, do not reflect my personal clinical impression, and the ultimate description of history of present illness and patient stated complaints should be deferred to this section of the note. Unless stated otherwise or congruent with this section of the note, additional signs, symptoms, or incongruence should be interpreted as inaccurate with my clinical impression. Related Data Home Medications Medication Instructions Recorded Confirmed aspirin 81 mg tablet,delayed 81 mg PO DAILY 05/09/19 08/22/23 release atorvastatin 20 mg tablet 20 mg PO HS 05/09/19 08/23/23 cyanocobalamin (vitamin B-12) 1,000 mcg PO DAILY 05/09/19 08/22/23 1,000 mcg capsule levothyroxine 75 mcg tablet 75 mcg PO DAILY 09/22/21 08/23/23 gabapentin 300 mg capsule 300 mg PO TID 07/23/23 08/23/23 loratadine 10 mg tablet (Claritin) 10 mg PO DAILY 08/23/23 08/23/23 potassium chloride 10 mEq 20 meq PO BID 08/23/23 08/23/23 tablet,extended release Previous Rx's Medication Instructions Recorded amlodipine 2.5 mg tablet 2.5 mg PO DAILY 30 days #30 tabs 08/23/23 cefdinir 300 mg capsule 300 mg PO BID 6 days #12 caps 08/23/23 sertraline 100 mg tablet 100 mg PO DAILY 30 days #30 tabs 08/23/23 Allergies Allergy/AdvReac Type Severity Reaction Status Date / Time No Known Allergies Allergy Verified 07/23/23 13:43 [facility] <Yohannes Guillen MD - Last Filed: 10/17/23 15:06> [facility] Disclaimer: The information contained in this section may have been updated after the patient was seen, as this information can be updated by other users. Medical History (Updated 10/17/23 @ 16:34 by Janie Lorenzo DO) Orthostatic hypotension Depression (HFpEF) heart failure with preserved ejection fraction Syncope Hypotension Dizziness COPD (chronic obstructive pulmonary disease) Pulmonary HTN Ex-smoker Sinus bradycardia Abnormal EKG Elevated troponin Dyspnea Atypical angina NSTEMI (non-ST elevated myocardial infarction) Congestive heart failure Social History (Updated 08/22/23 @ 20:00 by Jacque Richardson RN) Smoking Status: Never smoker second hand exposure: No alcohol intake: never current occupational status: disabled Travel in the last 8 weeks: None household members: spouse housing: house current occupational exposures/hazards: No caffeine: No <Yohannes Guillen MD - Last Filed: 10/17/23 15:06> ROS Obtained: Yes All systems reviewed & no additional complaints except as documented Physical Exam <Yohannes Guillen MD - Last Filed: 10/17/23 15:06> General General appearance: alert Neck Neck exam: Present trachea midline Chest Chest inspection: Present normal inspection and symmetric chest wall rise Respiratory Respiratory exam: Present normal lung sounds bilaterally; Absent respiratory distress, wheezes, stridor, accessory muscle use or prolonged expiratory phase Cardiovascular Cardiovascular exam: Present regular rate and normal rhythm Extremities Exam Extremities exam: Absent edema Neurological Exam Neurological exam: Present alert, oriented X3 and CN II-XII intact Skin Skin exam: Present warm and dry; Absent cyanosis, diaphoresis or pallor HEART Score <Yohannes Guillen MD - Last Filed: 10/17/23 15:06> HEART Score HEART Score assessment performed?: Yes HEART Score: 4 <Janie Lorenzo DO - Last Filed: 10/17/23 16:40> HEART Score History (anamnesis): Slightly suspicious ECG: Normal Age: >65 years Risk factors: 3 or more risk factors Troponin: </= normal limit HEART Score: 4 Critical Care <Yohannes Guillen MD - Last Filed: 10/17/23 15:06> Critical Care Time Critical Care Time: No Medical Decision Making <Yohannes Guillen MD - Last Filed: 10/17/23 15:06> Medical Records Medical records reviewed: Yes I reviewed the patient's medical records. Emmanuel Inquiry Pt receiving controlled substance: No Emmanuel was queried for this patient: No Vital Signs Vital Signs: 10/17/23 12:27 10/17/23 13:00 10/17/23 13:31 Temperature 97.6 F Temperature Source Oral Pulse Rate 67 65 Pulse Rate [Right] 73 Respiratory Rate 18 15 11 L Blood Pressure 139/81 159/73 H Blood Pressure [Right Arm] 136/68 Blood Pressure Mean [Right Arm] 90 Blood Pressure Source [Right Arm] Automatic Cuff 02 Sat by Pulse Oximetry 97 96 97 Oxygen Delivery Method Room Air 10/17/23 14:00 10/17/23 14:30 10/17/23 15:00 Temperature Temperature Source Pulse Rate 64 64 65 Pulse Rate [Right] Respiratory Rate 15 14 14 Blood Pressure 174/75 H 168/79 H 164/81 H Blood Pressure [Right Arm] Blood Pressure Mean [Right Arm] Blood Pressure Source [Right Arm] 02 Sat by Pulse Oximetry 96 98 94 L Oxygen Delivery Method 10/17/23 15:30 10/17/23 16:00 Temperature Temperature Source Pulse Rate 64 66 Pulse Rate [Right] Respiratory Rate 12 9 L Blood Pressure 178/73 H 179/72 H Blood Pressure [Right Arm] Blood Pressure Mean [Right Arm] Blood Pressure Source [Right Arm] 02 Sat by Pulse Oximetry 97 97 Oxygen Delivery Method Lab Data Labs: Lab Results 10/17/23 12:19: WBC 8.0, RBC 4.14 L, Hgb 13.5, Hct 44.2, MCV 106.8 H, MCH 32.6 H, MCHC 30.5 L, RDW 14.3, Plt Count 160, MPV 8.2, Neut % (Auto) 72.1, Lymph % (Auto) 20.7, [place] % (Auto) 4.5, Eos % (Auto) 2.2, Baso % (Auto) 0.5, Neut # (Auto) 5.8, Lymph # (Auto) 1.7, [place] # (Auto) 0.4, Eos # (Auto) 0.2, Baso # (Auto) 0.0, D-Dimer 0.45, Sodium 143, Potassium 4.3, Chloride 111 H, Carbon Dioxide 24, Anion Gap 12.3, BUN 29 H, Creatinine 0.90, Estimated Creat Clear 53, Estimated GFR 61, Est GFR ( Amer) 74, Glucose 119 H, Calcium 9.7, Total Bilirubin 0.6, AST 27, ALT 16, Alkaline Phosphatase 59, Troponin I < 0.01, NT-Pro-B Natriuret Pep 278 H, Total Protein 6.8, Albumin 3.9, Globulin 2.9, Albumin/Globulin Ratio 1.3, Lipase 165 10/17/23 13:19: VBG pH 7.39, VBG pCO2 34.2 L, VBG pO2 42.8 H, VBG HCO3 20.4 L, VBG Total CO2 21.4 L, VBG O2 Saturation 80.7 H, VBG Base Excess -4.5 L, VBG Lactic Acid 0.7 10/17/23 15:14: Troponin I < 0.01 10/17/23 12:19 10/17/23 12:19 Response Orders (Tests/Meds): ED MEDICATIONS Discontinued Medications Generic Name Dose Route Start Last Admin Trade Name Maurisio PRN Reason Stop Dose Admin Aspirin 324 mg 10/17/23 13:01 10/17/23 13:15 Aspirin 81mg Chewable Tablet PO 10/17/23 13:02 324 mg ONCE ONE Administration ORDERS Category Date Time Status XR chest portable Stat Exams 10/17/23 13:03 Completed Complete Blood Count Auto Diff Stat Lab 10/17/23 12:19 Completed Comprehensive Metabolic Panel Stat Lab 10/17/23 12:19 Completed D-Dimer Stat Lab 10/17/23 12:19 Completed Lipase Stat Lab 10/17/23 12:19 Completed NT Pro Brain Natriuretic Pep. Stat Lab 10/17/23 12:19 Completed Troponin I Q3H Lab 10/17/23 15:14 Completed Troponin I Q3H Lab 10/17/23 19:15 Ordered Troponin I Stat Lab 10/17/23 12:19 Completed Venous Blood Gas Stat RT 10/17/23 13:19 Completed MDM Narrative Medical Decision Narrative: This is a 73-year-old female with history of diastolic heart failure, MS, NSTEMI without stent placement, COPD not on home oxygen presenting with chest pain. Patient states that just before arrival, started having chest pain that was substernal, associated with right-sided facial tenderness. Never had pain like this in the past. It did not radiate, they felt like they were separate pains. No shortness of breath, diaphoresis, cold sweats, weakness, or any other concerns. Called daughter, daughter called EMS. Patient was given 1 aspirin. Was initially 10 out of 10, 3 out of 10 on arrival here to the emergency department without further intervention. History was obtained via conversation with patient and daughter. On arrival, patient hemodynamically stable, alert, oriented x4, appropriate, GCS 15, moving all extremities spontaneously, pupils equal and reactive to light. Full physical exam performed and significant for chronically ill-appearing woman in no acute distress. At neurologic baseline, per her and daughter. Cardiopulmonary exam within normal limits, lungs are clear to auscultation bilaterally anterior and posterior. No focal breath sounds. No lower extremity edema. Pulses are equal and symmetric. No pulsatile abdominal mass. Differential includes microvascular coronary artery disease, CHF, ACS, AK, coronary artery dissection, pneumothorax, PE, dissection, pericarditis, myocarditis, pneumothorax, aortic aneurysm, pneumonia, bronchitis, among others. Patient was given 324 mg aspirin for symptomatic management and correction of underlying abnormalities. Workup independently interpreted and significant for nonactionable CBC or chemistry. Initial troponin negative. BNP negative. Chest x-ray without acute cardiopulmonary airspace disease. See radiology read for full review of final results. Independent interpretation of EKG shows sinus rhythm 70 beats a minute without ST changes concerning for acute ischemia. T wave inversions 3, aVF without reciprocal change. Unknown if this is acute or chronic. Patient placed on continuous cardiac monitoring and continuous pulse ox with initial blood pressure 136/78, heart rate 73, saturation 97 on room air. Heart score 4. Patient was placed in observation beginning at 1 PM in order to rule out evolving AK with delta troponin and determine need for admission versus home-going. The patient was provided serial exams, monitoring, delta tropes while awaiting results. On reevaluation prior to delta troponin, patient states that she has 0 pain at this time. Had some indigestion, burped, it got better. Patient does have follow-up with cardiology next week, I feel this is appropriate given exam and resolution of symptoms, as well as heart score 4 and resolution of symptoms. Prior to final troponin and disposition, care handed off to oncoming physician. Underwear Hemmer disclaimer Much of this encounter note is an electronic multifocal lens inspector spoken language to printed text. Electronic multifocal lens inspector of the spoken language may permit errors. Although I have reviewed the note, some errors may still exist. <Janie Lorenzo, DO - Last Filed: 10/17/23 16:40> Vital Signs Vital Signs: 10/17/23 12:27 10/17/23 13:00 10/17/23 13:31 Temperature 97.6 F Temperature Source Oral Pulse Rate 67 65 Pulse Rate [Right] 73 Respiratory Rate 18 15 11 L Blood Pressure 139/81 159/73 H Blood Pressure [Right Arm] 136/68 Blood Pressure Mean [Right Arm] 90 Blood Pressure Source [Right Arm] Automatic Cuff 02 Sat by Pulse Oximetry 97 96 97 Oxygen Delivery Method Room Air 10/17/23 14:00 10/17/23 14:30 06/06/24 15:00 Temperature Temperature Source Pulse Rate 64 64 65 Pulse Rate [Right] Respiratory Rate 15 14 14 Blood Pressure 174/75 H 168/79 H 164/81 H Blood Pressure [Right Arm] Blood Pressure Mean [Right Arm] Blood Pressure Source [Right Arm] 02 Sat by Pulse Oximetry 96 98 94 L Oxygen Delivery Method 10/17/23 15:30 10/17/23 16:00 Temperature Temperature Source Pulse Rate 64 66 Pulse Rate [Right] Respiratory Rate 12 9 L Blood Pressure 178/73 H 179/72 H Blood Pressure [Right Arm] Blood Pressure Mean [Right Arm] Blood Pressure Source [Right Arm] 02 Sat by Pulse Oximetry 97 97 Oxygen Delivery Method Lab Data Labs: Lab Results 10/17/23 12:19: WBC 8.0, RBC 4.14 L, Hgb 13.5, Hct 44.2, MCV 106.8 H, MCH 32.6 H, MCHC 30.5 L, RDW 14.3, Plt Count 160, MPV 8.2, Neut % (Auto) 72.1, Lymph % (Auto) 20.7, [place] % (Auto) 4.5, Eos % (Auto) 2.2, Baso % (Auto) 0.5, Neut # (Auto) 5.8, Lymph # (Auto) 1.7, [place] # (Auto) 0.4, Eos # (Auto) 0.2, Baso # (Auto) 0.0, D-Dimer 0.45, Sodium 143, Potassium 4.3, Chloride 111 H, Carbon Dioxide 24, Anion Gap 12.3, BUN 29 H, Creatinine 0.90, Estimated Creat Clear 53, Estimated GFR 61, Est GFR ( Amer) 74, Glucose 119 H, Calcium 9.7, Total Bilirubin 0.6, AST 27, ALT 16, Alkaline Phosphatase 59, Troponin I < 0.01, NT-Pro-B Natriuret Pep 278 H, Total Protein 6.8, Albumin 3.9, Globulin 2.9, Albumin/Globulin Ratio 1.3, Lipase 165 10/17/23 13:19: VBG pH 7.39, VBG pCO2 34.2 L, VBG pO2 42.8 H, VBG HCO3 20.4 L, VBG Total CO2 21.4 L, VBG O2 Saturation 80.7 H, VBG Base Excess -4.5 L, VBG Lactic Acid 0.7 10/17/23 15:14: Troponin I < 0.01 Response Orders (Tests/Meds): ED MEDICATIONS Discontinued Medications Generic Name Dose Route Start Last Admin Trade Name Maurisio PRN Reason Stop Dose Admin Aspirin 324 mg 10/17/23 13:01 10/17/23 13:15 Aspirin 81mg Chewable Tablet PO 10/17/23 13:02 324 mg ONCE ONE Administration ORDERS Category Date Time Status XR chest portable Stat Exams 10/17/23 13:03 Completed Complete Blood Count Auto Diff Stat Lab 10/17/23 12:19 Completed Comprehensive Metabolic Panel Stat Lab 10/17/23 12:19 Completed D-Dimer Stat Lab 10/17/23 12:19 Completed Lipase Stat Lab 10/17/23 12:19 Completed NT Pro Brain Natriuretic Pep. Stat Lab 10/17/23 12:19 Completed Troponin I Q3H Lab 10/17/23 15:14 Completed Troponin I Q3H Lab 10/17/23 19:15 Ordered Troponin I Stat Lab 10/17/23 12:19 Completed Venous Blood Gas Stat RT 10/17/23 13:19 Completed MDM Narrative Medical Decision Narrative: This is a 73-year-old female with history of diastolic heart failure, MS, NSTEMI without stent placement, COPD not on home oxygen presenting with chest pain. Patient states that just before arrival, started having chest pain that was substernal, associated with right-sided facial tenderness. Never had pain like this in the past. It did not radiate, they felt like they were separate pains. No shortness of breath, diaphoresis, cold sweats, weakness, or any other concerns. Called daughter, daughter called EMS. Patient was given 1 aspirin. Was initially 10 out of 10, 3 out of 10 on arrival here to the emergency department without further intervention. History was obtained via conversation with patient and daughter. On arrival, patient hemodynamically stable, alert, oriented x4, appropriate, GCS 15, moving all extremities spontaneously, pupils equal and reactive to light. Full physical exam performed and significant for chronically ill-appearing woman in no acute distress. At neurologic baseline, per her and daughter. Cardiopulmonary exam within normal limits, lungs are clear to auscultation bilaterally anterior and posterior. No focal breath sounds. No lower extremity edema. Pulses are equal and symmetric. No pulsatile abdominal mass. Differential includes microvascular coronary artery disease, CHF, ACS, AK, coronary artery dissection, pneumothorax, PE, dissection, pericarditis, myocarditis, pneumothorax, aortic aneurysm, pneumonia, bronchitis, among others. Patient was given 324 mg aspirin for symptomatic management and correction of underlying abnormalities. Workup independently interpreted and significant for nonactionable CBC or chemistry. Initial troponin negative. BNP negative. Chest x-ray without acute cardiopulmonary airspace disease. See radiology read for full review of final results. Independent interpretation of EKG shows sinus rhythm 70 beats a minute without ST changes concerning for acute ischemia. T wave inversions 3, aVF without reciprocal change. Unknown if this is acute or chronic. Patient placed on continuous cardiac monitoring and continuous pulse ox with initial blood pressure 136/78, heart rate 73, saturation 97 on room air. Heart score 4. Patient was placed in observation beginning at 1 PM in order to rule out evolving AK with delta troponin and determine need for admission versus home-going. The patient was provided serial exams, monitoring, delta tropes while awaiting results. On reevaluation prior to delta troponin, patient states that she has 0 pain at this time. Had some indigestion, burped, it got better. Patient does have follow-up with cardiology next week, I feel this is appropriate given exam and resolution of symptoms, as well as heart score 4 and resolution of symptoms. Prior to final troponin and disposition, care handed off to oncoming physician. Underwear Hemmer disclaimer Much of this encounter note is an electronic multifocal lens inspector spoken language to printed text. Electronic multifocal lens inspector of the spoken language may permit errors. Although I have reviewed the note, some errors may still exist. DO Bj: On my assessment of the patient, she is resting calmly and is chest pain-free. Patient is mildly hypertensive, but vitals otherwise reassuring on cardiac telemetry. Second troponin resulted negative at 1630. Patient also requested D-dimer to evaluate for blood clot, which was also negative in the setting of low pretest probability. Given reassuring workup and exam, it is felt that the patient is appropriate for discharge at 1630 after a total of 3.5 hours in ED observation. Patient already has close follow-up with cardiology arranged. Strict return precautions were given, and the patient was discharged after all questions were answered.
--- NOTE | 2023-10-17 13:03 | XR_ITS ---
FINAL REPORT CLINICAL HISTORY: cp to right jaw COMPARISON: 08/22/2023 FINDINGS: A single portable view of the chest was obtained. The heart size and pulmonary vascularity are within normal limits. The mediastinum is within normal limits. No acute pulmonary abnormality is identified. The bony thorax is intact. IMPRESSION: No active cardiopulmonary disease. Reviewed, Interpreted and Dictated by Jorge L Coronado III, MD Transcribed by Linda Saldaña Authenticated and [facility]
[2023-10-17 13:11] LABS: Basophils % 0.5 % (0.1-2.0); Eosinophils # 0.2 K/mm3 (0.0-0.4); Eosinophils % 2.2 % (0.1-12.0); Hematocrit 44.2 % (37.0-47.0); Hemoglobin 13.5 g/dL (12.2-16.2); Lymphocytes # 1.7 K/mm3 (0.7-4.5); Lymphocytes % 20.7 % (10-50); Mean Corpuscular HGB Conc 30.5 g/dL (31.8-35.4); Mean Corpuscular Hemoglobin 32.6 pg (27.0-31.2); Mean Corpuscular Volume 106.8 fl (81-99); Mean Platelet Volume 8.2 fl (7.4-10.4); Monocytes # 0.4 K/mm3 (0.1-1.0); Monocytes % 4.5 % (1.7-9.3); Neutrophils # 5.8 K/mm3 (1.8-7.8); Neutrophils % 72.1 % (37.0-80.0); Platelet Count 160 K/mm3 (142-424); Red Blood Count 4.14 M/mm3 (4.20-5.40); Red Cell Distribution Width 14.3 % (11.5-17.5)
[2023-10-17] MEDS: ASPIRIN 81MG CHEWABLE TABLET 324 MG PO (13:15)
[2023-10-17 13:28] LABS: Chloride 111 mmol/L (98-107); Sodium 143 mmol/L (136-145)
[2023-10-17 13:29] LABS: Potassium 4.3 mmoL/L (3.5-5.1)
[2023-10-17 13:31] LABS: Alanine Aminotransferase 16 U/L (12-78); Albumin Level 3.9 g/dl (3.5-5.0); Albumin/Globulin Ratio 1.3 (1.1-1.8); Alkaline Phosphatase 59 U/L (38-126); Anion Gap 12.3 mEq/L (5-15); Aspartate Amino Transferase 27 U/L (14-36); Bilirubin,Total 0.6 mg/dl (0.2-1.3); Blood Urea Nitrogen 29 mg/dl (7-17); Calcium 9.7 mg/dl (8.4-10.2); Carbon Dioxide 24 mmol/L (22.0-30.0); Creatinine Clearance Estimated 53 mL/min (50-200); Estimated Glomerular Filt Rate 61 ml/min (>60); GFR (African American) 74 ML/MIN (>60); Globulin 2.9 g/dL (1.3-3.2); Glucose 119 mg/dl (74-100); Lipase 165 U/L (23-300); Total Protein,Serum 6.8 g/dl (6.3-8.2)
[2023-10-17 13:32] LABS: Lactate Venous 0.7 mmol/L (0.4-2.0); VBG Base Excess -4.5 mmol/L (-2.4-2.3); VBG HCO3 20.4 mmol/L (23-30); VBG Oxygen Saturation 80.7 % (50-70); VBG PCO2 34.2 mmol/L (35-51); VBG PH 7.39 mmol/L (7.31-7.41); VBG PO2 42.8 mmol/L (28-40); VBG Total CO2 21.4 mmol/L (23-27)
[2023-10-17 13:41] LABS: NT Pro Brain Natriuretic Pep. 278 pg/mL (0-125)
[2023-10-17 13:54] LABS: Troponin I < 0.01 ng/ml (0.00-0.034)
[2023-10-17 16:06] LABS: Troponin I < 0.01 ng/ml (0.00-0.034)
[2023-10-17 16:21] LABS: D-Dimer 0.45 ug/mL (0.0-0.5)
--- NOTE | 2023-10-17 16:36 | PC.NURSE ---
DR COPE AT BEDSIDE TO UPDATE PT AND FAMILY
== END 2023-10-17 17:00 | disposition home or self-care (01) ==
PROVIDERS: Emergency Medicine; Emergency Provider Emergency Medicine; PCP Nurse Practitioner Family
DX: R07.9 Chest pain, unspecified (principal); J44.9 Chronic obstructive pulmonary disease, unspecified; I11.0 Hypertensive heart disease with heart failure; I50.30 Unspecified diastolic (congestive) heart failure; Z87.891 Personal history of nicotine dependence; G35 Multiple sclerosis
CPT/HCPCS: 71045; 80053; 82803; 83690; 83880; 84484; 85025; 85378; 93005; 99284

== ENCOUNTER 2023-11-08 09:16 | Outpatient (CLI) | payer MEDICARE, BC, SELFPAY ==
--- NOTE | 2023-11-08 | CA_ITS ---
APPROVED REPORT Exam: Pharmacologic Technologist: Stephani Russell, Ht: 5 ft 3 in Wt: 136 lbs BSA: 1.64 m2 HR: 72 bpm BP: 159/84 mmHg Rhythm: NSR Medical History Medications: Amlodipine,,,,, Levothyroxine,,,,, Aspirin,,,,, Gabapentin,,,,, Atorvastatin,,,,, Flonase,,,,, Vit B12,,,,, Sertraline,,,,, Potassium Chloride ER,,,,, BuPROPION HCI,,,,, CetItizine,,,,, Stress Test Details Test: LEXISCAN Reason for pharmacologic stress test: physical limitation. HR Resting HR: 72 bpm Max Heart Rate (APMHR): 146 bpm Max HR Achieved: 92 bpm Target HR (85% APMHR): 124 bpm % of APMHR: 63 Recovery HR: 83 bpm BP Resting BP: 159.0/84.0 mmHg Max BP: 160.0/78.0 mmHg Recovery BP: 160.0/78.0 mmHg ECG Resting ECG: NSR, Twave abns inferiorly & anterolaterally Stress ECG: No significant ST changes Arrhythmia: None Clinical Exercise duration: 04:01 min Highest Stage Achieved: Stress ECG Conclusion Symptoms: Mild SOA, head discomfort. No chest pain. Arrhythmias/Ectopy: None ST-T Changes: No significant ST changes Conclusion: Unremarkable Lexiscan stress. Myoview images are reported separately. Test Summary REST . . . . . . . Resting REST 03:12 . . 72 . 159/ 84 . . Stage 1 01:00 . . 80 . . . . Stage 2 01:00 . . 88 . 141/ 74 . . Stage 3 01:00 . . 88 . 146/ 73 . . Stage 4 01:00 . . 86 . 146/ 76 . . Stage 4 01:01 . . 85 . 146/ 76 . Stop exercise at 04:01 RECOVERY 01:00 . . 89 . . . . RECOVERY 02:00 . . 83 . 150/ 81 . . RECOVERY 03:00 . . 84 . 160/ 78 . . RECOVERY 03:24 . . 83 . 160/ 78 . . Electronically signed by : Magnolia Price MD 11/10/2023 22:27:45
--- NOTE | 2023-11-08 09:16 | NM_ITS ---
APPROVED REPORT Exam: Nuclear Stress Test Indication: CHF, HYPOTENSION, FORMER SMOKER, ANGINA, SOB, SYNCOPE, ABN EKG Patient Location: Outpatient Stress Tech: Stephani Cortez [place] Tech:GERI Garcia RT (R)(N)(M) Ht: 6 ft 3 in Wt: 136 lbs Bra Size: A HR: 72 bpm BP: 159/84 mmHg BSA: 1.86 m2 TID: 1.04 BMI: 16.9 History: CHF, HYPOTENSION, FORMER SMOKER, ANGINA, SOB, SYNCOPE, ABN EKG PT COULD NOT LAY ON STOMACH FOR PRONE IMAGES Procedure: Patient received 0.4 mg of intravenous Lexiscan, resting heart rate 72 bpm, resting blood pressure 159/84 mmHg, with Lexiscan maximum heart rate achieved was 88 bpm which is % of the maximum predicted heart rate and blood pressure was 141/74 mmHg. With Lexiscan, patient denied any complaint of chest pain. Cardiac Stress and Resting SPECT Images: Cardiac Stress and Resting SPECT images were obtained using technetium 99m Myoview 31.8 mCi stress and 10.15 mCi at rest. Raw images demonstrate significant diaphragmatic overlap with the borders of the the LV wall. The patient could not lie on her abdomen. Therefore, prone stress imaging could not be performed. This may affect the diagnostic interpretation of the study findings. Resting and stress imaging in supine position demonstrate a medium sized, moderate, fixed perfusion defect in the inferior LV wall. Findings may be suggestive of diaphragmatic attenuation, but true perfusion defect cannot be entirely ruled out. Gated imaging demonstrates normal global and regional LV systolic function. LVEF is calculated at 65%. Conclusion: Raw images demonstrate significant diaphragmatic overlap with the borders of the the LV wall. The patient could not lie on her abdomen. Therefore, prone stress imaging could not be performed. This may affect the diagnostic interpretation of the study findings. Medium sized, moderate, fixed perfusion defect in the inferior LV wall. Findings may be suggestive of diaphragmatic attenuation, but true perfusion defect cannot be entirely ruled out. Gated imaging demonstrates normal global and regional LV systolic function. LVEF is calculated at 65%. In the setting of suspected diaphragmatic attenuation, clinical correlation is recommended. If indicated, further ischemic evaluation with alternative modalities is recommended. Electronically signed by : Magnolia Price MD 11/10/2023 22:32:04
[2023-11-08] MEDS: REGADENOSON 0.4MG/5ML SYRINGE 0.4 MG IV (09:30)
[2023-11-08] MEDS: SODIUM CHLORIDE 0.9% 10ML SYR (RAD ONLY) 10 ML IV ×2 (09:30→10:30)
[2023-11-08] MEDS: ISOTOPE MYOVIEW (PER STUDY) 1 DOSE IV (12:00)
== END 2023-11-08 23:59 | disposition home or self-care (01) ==
LOC: RAD 09:16
PROVIDERS: PCP Nurse Practitioner Family; Visit Provider Physician Assistant
DX: R07.9 Chest pain, unspecified (principal)
CPT/HCPCS: 78452; 93017; 93018; A9502; J2785

== ENCOUNTER 2023-11-26 11:25 | Outpatient (CLI) | payer MEDICARE, BC, SELFPAY ==
[2023-11-26 12:14] LABS: Blood Urea Nitrogen 30 mg/dl (7-17); Estimated Glomerular Filt Rate 44 ml/min (>60); GFR (African American) 53 ML/MIN (>60)
== END 2023-11-26 23:59 | disposition home or self-care (01) ==
LOC: LAB 11:29
PROVIDERS: PCP Nurse Practitioner Family; Visit Provider Physician Assistant
DX: R07.9 Chest pain, unspecified (principal); I50.33 Acute on chronic diastolic (congestive) heart failure; I95.9 Hypotension, unspecified; R42 Dizziness and giddiness
CPT/HCPCS: 36415; 82565; 84520

== ENCOUNTER 2023-11-27 08:51 | Outpatient (CLI) | payer MEDICARE, BC, SELFPAY ==
--- NOTE | 2023-11-27 08:52 | CT_ITS ---
APPROVED REPORT Account Manager Employee Benefits: CLINICAL INDICATION Chest Pain TECHNIQUE Image Acquisition: A 128 slice MDCT scanner ([employer] View) was used for data acquisition. A noncontrast coronary calcium scan was performed. A CT attenuation threshold of 130 Hounsfield units (HU) was used for the detection of calcium in contiguous voxels of 1 sq mm in area to be counted as individual lesions. Bolus tracking in the ascending aorta with a threshold of 180 HU was performed. Immediately afterwards, ECG synchronized cardiac CT was then performed from the cardiac base to apex using retrospective gating with ECG tube current modulation. A total of 85 mL of Isovue 370 mg/mL contrast medium was administered at 5 mL/sec followed by a saline flush using a biphasic injection protocol. A tube voltage of 120 KVp was used. The patient received the following medications prior to the cardiac CT. 25 mg of oral metoprolol 0.8 mg of sublingual nitroglycerin The average heart rate at the time of acquisition was 63 bpm and regular. Image Reconstruction Transaxial images were reconstructed at 0.67 mm slide thickness. Data was reviewed interactively on an advanced workstation capable of 2 and 3-dimensional displays in all conventional reconstruction formats, including multiplanar reformations, maximum intensity projections, curved multiplanar reformations, and volume rendered reconstructions. When applicable, selected routine images describing the relevant coronary anatomy and pathology were saved and sent to PACS. Complications None Technical Quality Overall image quality was good. Coronary artery opacification was adequate. Total DLP (Dose-Length Product) is 1633.4 mGy-cm. The reported value represents the total of one or more individual components during the CT acquisition of this date and at this time, and as such, the same value may appear in more than one CT report depending on the interpreting/reporting physicians. COMPARISON None FINDINGS CT Coronary Calcium Scoring LMA (Left Main Artery) = 57 LAD (Left Anterior Descending) = 163 LCX (Left Coronary Circumflex) = 143 RCA (Right Coronary Artery) = 114 Total Calcium Score = 477 using the AJ-130 method. The observed calcium score of 477 is at 87th percentile for subjects of the same age, sex, and race/ethnicity. The interpretation of the calcium heart score is based on the following continuum*: 0 = no calcified plaque detected (risk of coronary artery disease is very low ??? less than 5%) 1-10 = calcium detected in extremely minimal levels (risk of coronary diseases is still low ??? less than 10%) 11-100 = mild levels of plaque detected with certainty (mild or minimal narrowing of heart arteries is likely) 101-400 = definite,at least moderate levels of plaque detected (relatively high risk of a heart attack within 3-5 years) >401-999 = extensive levels of plaque detected (high risk of heart attack, high levels of vascular disease are present, high likelihood of at least one significant coronary narrowing) *The calcium heart score quantifies the burden of coronary calcification/plaque in the coronary arteries. The calcium heart score is not able to evaluate the presence or burden of non-calcified (i.e. soft) plaque. There is also identifiable calcification in the ascending and descending thoracic aorta. Coronary CT Angiography The coronary arterial system is right dominant. Quantitative Stenosis Grading: Left Main (LM): The left main originates normally from the left sinus of Valsalva. The LM bifurcates into the left anterior descending artery and left circumflex artery. There is calcified plaque noted in the distal LM, with no luminal stenosis. Left Anterior Descending (LAD) and Lisa
[2023-11-27 09:07] VITALS: BMI 24.0
[2023-11-27 09:49] VITALS: BP 154/94; PULSE 74; RESP 18; TEMP 36.1; O2SAT 94
--- NOTE | 2023-11-27 10:15 | PC.NURSE ---
Initial Hr upon arrival 73. Upon administration of PO meds HR 60-64. 25 mg Metoprolol administered, 50mg Metoprolol and 15MG Ivabradine wasted.
[2023-11-27 10:35] VITALS: BP 196/88; PULSE 65; RESP 18; O2SAT 98
[2023-11-27 10:40] VITALS: BP 162/84; PULSE 62; RESP 18; O2SAT 99
[2023-11-27 10:45] VITALS: BP 152/78; PULSE 62; RESP 18; O2SAT 99
[2023-11-27 10:50] VITALS: BP 155/74; PULSE 62; RESP 18; O2SAT 97
[2023-11-27 10:58] VITALS: BP 113/58; PULSE 57; RESP 18; O2SAT 97
== END 2023-11-27 23:59 | disposition home or self-care (01) ==
PROVIDERS: PCP Nurse Practitioner Family; Visit Provider Physician Assistant
DX: R07.89 Other chest pain (principal); I11.0 Hypertensive heart disease with heart failure; I50.32 Chronic diastolic (congestive) heart failure; R00.1 Bradycardia, unspecified; I27.20 Pulmonary hypertension, unspecified; E78.2 Mixed hyperlipidemia
CPT/HCPCS: 75574; Q9967

== ENCOUNTER 2023-12-02 13:43 | Emergency (ER) | payer MEDICARE, BC, SELFPAY ==
[2023-12-02] VITALS (7 sets, daily range): BP systolic 131–190; BP diastolic 70–110; PULSE 60–67; RESP 18–20; TEMP 36.6–36.7; O2SAT 92–100; BMI 23.0
--- NOTE | 2023-12-02 13:55 | PC.NURSE ---
pt given warm blankets for comfort; daughter at BS
--- NOTE | 2023-12-02 13:58 | ED_ITS ---
<Statement entered by Jocelyn Carmichael MD - 12/02/23 23:22> I was consulted by the MEGHANA, and we discussed the complexity of the problems being addressed. I approved the treatment and management plan for this patient's care in the emergency department, thus performing a substantive portion of the medical decision making. Jocelyn Carmichael MD, SHERLY, FACEP Discharge Plan Disposition Patient Disposition: Home, Self-Care Condition: Good Chief Complaint: Fall Prescriptions Prescriptions: No Action gabapentin 300 mg capsule 300 mg PO TID cetirizine 10 mg tablet 10 mg PO DAILY PRN (Reason: allergies) fluticasone propionate 50 mcg/actuation spray,suspension 1 spray intranasal DAILY bupropion HCl 150 mg tablet extended release 24 hr 150 mg PO DAILY buspirone 5 mg tablet 150 mg PO DAILY atorvastatin 20 MG tablet 20 mg PO HS aspirin 81 MG tablet,delayed release (DR/EC) 81 mg PO DAILY cyanocobalamin (vitamin B-12) 1,000 MCG capsule 1,000 mcg PO DAILY levothyroxine 75 MCG tablet 75 mcg PO DAILY potassium chloride 10 mEq tablet extended release 20 meq PO BID sertraline 100 mg Tablet 100 mg PO DAILY 30 Days Qty: 30 0RF amlodipine 2.5 mg Tablet 2.5 mg PO DAILY 30 Days Qty: 30 0RF Referrals Follow up/Referrals: Fay Robertson APRN [Primary Care Provider] - See instructions Activity Restrictions/Add. Instructions Additional Instructions/Restrictions: Please follow-up with your PCP as needed. Return to ER for any worsening signs or symptoms as needed. Clinical Impressions Clinical Impression: Fall Instructions Patient Instructions: How to Prevent Falls Discharge ED Provider: Jocelyn Carmichael General Adult HPI General Chief complaint: Fall Stated complaint: Fall Time Seen by Provider: 12/02/23 13:58 History of Present Illness HPI narrative: pt presents after a fall at home. pt has h/o multiple sclerosis and has frequent episodes of her legs giving out. Today she was attempting to answer the door while using her walker and felt her legs start to give out. Her daughter attempted to catch her but she did not get to her in time. Pt then slipped to the ground and struck the ward of her head. she did not lose consciousness but c/o headacheto the back of her head and cspine. she denies pain of any other body part, cp, soa, fever, NVD . EMV= 15 at the time of my exam Related Data Home Medications Medication Instructions Recorded Confirmed aspirin 81 mg tablet,delayed 81 mg PO DAILY 05/09/19 11/27/23 release atorvastatin 20 mg tablet 20 mg PO HS 05/09/19 11/27/23 cyanocobalamin (vitamin B-12) 1,000 mcg PO DAILY 05/09/19 11/27/23 1,000 mcg capsule levothyroxine 75 mcg tablet 75 mcg PO DAILY 09/22/21 11/27/23 gabapentin 300 mg capsule 300 mg PO TID 07/23/23 11/27/23 potassium chloride 10 mEq 20 meq PO BID 08/23/23 11/27/23 tablet,extended release bupropion HCl 150 mg 24 hr tablet, 150 mg PO DAILY 10/23/23 11/27/23 extended release cetirizine 10 mg tablet 10 mg PO DAILY PRN allergies 10/23/23 11/27/23 fluticasone propionate 50 1 spray intranasal DAILY 10/23/23 11/27/23 mcg/actuation nasal spray,suspension buspirone 5 mg tablet 150 mg PO DAILY 11/12/23 11/27/23 Previous Rx's Medication Instructions Recorded amlodipine 2.5 mg tablet 2.5 mg PO DAILY 30 days #30 tabs 08/23/23 sertraline 100 mg tablet 100 mg PO DAILY 30 days #30 tabs 08/23/23 Allergies Allergy/AdvReac Type Severity Reaction Status Date / Time No Known Allergies Allergy Verified 11/12/23 10:54 [facility] Disclaimer: The information contained in this section may have been updated after the patient was seen, as this information can be updated by other users. Medical History (Updated 12/02/23 @ 16:15 by MARCEL Mondragon) Orthostatic hypotension (HFpEF) heart failure with preserved ejection fraction Syncope Depression Hypotension Dizziness COPD (chronic obstructive pulmonary disease) Pulmonary HTN Ex-smoker Sinus bradycardia Abnormal EKG Elevated troponin Dyspnea Atypical angina NSTEMI (non-ST elevated myocardial infarction) Congestive heart failure Surgical History (Updated 11/27/23 @ 09:36 by Surya Ozuna RN) History of thyroidectomy History of cholecystectomy History of hysterectomy Family History (Updated 11/27/23 @ 09:48 by Surya Ozuna RN) Other Family history of CVA Family history of heart disease Social History (Updated 11/27/23 @ 09:49 by Surya Ozuna RN) Smoking Status: Never smoker second hand exposure: No alcohol intake: never current occupational status: disabled Travel in the last 8 weeks: None household members: spouse housing: house current occupational exposures/hazards: No caffeine: No ROS Obtained: Yes Systems reviewed as appropriate & no additional complaints except as documented Physical Exam General General appearance: alert and in no apparent distress Head Head exam: atraumatic and normal inspection Eye Eye exam: Present normal appearance, PERRL and EOMI ENT ENT exam: Present normal exam, normal oropharynx and mucous membranes moist Neck Neck exam: Present normal inspection, full ROM and tenderness Chest Chest inspection: Present normal inspection and symmetric chest wall rise; Absent tenderness Respiratory Respiratory exam: Present normal lung sounds bilaterally Cardiovascular Cardiovascular exam: Present regular rate, normal rhythm and normal heart sounds Abdominal Exam Abdominal exam: Present soft and normal bowel sounds; Absent tenderness Extremities Exam Extremities exam: Present normal inspection and full ROM; Absent tenderness Back Exam Back exam: Present normal inspection and full ROM; Absent tenderness Neurological Exam Neurological exam: Present alert, oriented X3 and CN II-XII intact Psychiatric Psychiatric exam: Present normal affect and normal mood Skin Skin exam: Present warm, dry and normal color Medical Decision Making Medical Records Medical records reviewed: Yes I reviewed the patient's medical records. Emmanuel Inquiry Pt receiving controlled substance: No Vital Signs: 12/02/23 13:43 12/02/23 14:01 12/02/23 14:31 Temperature 98.0 F Temperature Source Oral Pulse Rate 67 61 Pulse Rate [Left Radial] 65 Respiratory Rate 20 Blood Pressure 131/110 H 173/78 H Blood Pressure [Right Arm] 173/78 H Blood Pressure Mean 117 127 Blood Pressure Mean [Right Arm] 109 02 Sat by Pulse Oximetry 92 L 96 97 Oxygen Delivery Method Room Air Room Air Room Air Lab Data Lab results reviewed: Yes I reviewed the patient's lab results. Lab Results 12/02/23 15:00: WBC 6.6, RBC 4.43, Hgb 14.9, Hct 47.2 H, MCV 106.4 H, MCH 33.5 H , MCHC 31.5 L, RDW 13.8, Plt Count 139 L, MPV 8.5, Neut % (Auto) 70.6, Lymph % (Auto) 19.8, Mcn[place] % (Auto) 5.5, Eos % (Auto) 3.0, Baso % (Auto) 1.1, Neut # (Auto) 4.7, Lymph # (Auto) 1.3, Mcn[place] # (Auto) 0.4, Eos # (Auto) 0.2, Baso # (Auto) 0.1, Sodium 146 H, Potassium 4.2, Chloride 112 H, Carbon Dioxide 31 H, Anion Gap 7.2, BUN 33 H, Creatinine 1.00, Estimated Creat Clear 46, Estimated GFR 54 L, Est GFR ( Amer) 66, Glucose 87, Calcium 9.8, Magnesium 1.9, Total Bilirubin 0.5, AST 32, ALT 18, Alkaline Phosphatase 60, Total Creatine Kinase 22 L, Total Protein 7.3, Albumin 4.1, Globulin 3.2, Albumin/Globulin Ratio 1.3 12/02/23 15:58: Urine Color Yellow, Urine Appearance Clear, Urine pH 6.0, Ur Specific [place] >= 1.030, Urine Protein Negative, Urine Glucose (UA) Negative, Urine Ketones Negative, Urine Blood Negative, Urine Nitrate Negative, Urine Bilirubin Negative, Urine Urobilinogen 0.2, Ur Leukocyte Esterase Negative 12/02/23 15:00 12/02/23 15:00 Orders (Tests/Meds): ED MEDICATIONS Discontinued Medications Generic Name Dose Route Start Last Admin Trade Name Freq PRN Reason Stop Dose Admin Acetaminophen 1,000 mg 12/02/23 14:06 12/02/23 15:14 Acetaminophen 1,000mg/100ml Vial IV 12/02/23 14:07 1,000 mg ONCE ONE Administration Sodium Chloride 1,000 mls @ 999 mls/hr 12/02/23 14:06 12/02/23 15:15 Sod Chlor 0.9% 1000ml Bag IV 12/02/23 15:06 999 mls/hr .Q1H1M ONE Administration ORDERS Category Date Time Status CT cervical spine wo con Stat Cat Scan 12/02/23 14:[address] head/brain wo con Stat Cat Scan 12/02/23 14:[address] thoracic spine wo con Stat Cat Scan 12/02/23 14:03 Completed CBC w/Auto Diff [Complete Blood Count Auto Diff] Stat Lab 12/02/23 15:00 Completed CK [Creatine Kinase] Stat Lab 07/22/24 15:00 Completed CMP [Comprehensive Metabolic Panel] Stat Lab 12/02/23 15:00 Completed Magnesium Stat Lab 12/02/23 15:00 Completed UA [Urinalysis and Microscopic] Stat Lab 12/02/23 15:58 Results Medical Decision Narrative: In summary patient is a 73 y/o F who presents to the emergency department for evaluation of a fall. Patient is hemodynamically stable upon arrival, afebrile. Physical exam is remarkable for headache and c-spine tenderness w/o obvious bony deformity contusion, abrasion or hematoma. GCS=15. Differential diagnosis includes contusion vs cspine fx, vs skull fx, vs ICH, etc.. Initial workup will be conducted with labs, UA, CT scan of head and cpsine w/o contrast. Initial interventions includecrystaloid bolus, tylenol. Initial workup reviewed by me and her hematologic labs are nonactionable urinalysis shows no infection and my informal interpretation of her imaging shows no acute fracture prior to radiology read. Upon repeat evaluation patient reports improvement in her headache and her pain after initial intervention and patient has no C-spine midline tenderness and has full 45 degree range of motion without pain. Given this appropriate for discharge with follow-up with her PCP Critical Care Critical Care Time Critical Care Time: No
--- NOTE | 2023-12-02 13:59 | PC.NURSE ---
Tyler PA at BS
--- NOTE | 2023-12-02 14:03 | CT_ITS ---
FINAL REPORT CLINICAL HISTORY: fall mid back pain FINDINGS: CT THORACIC SPINE TECHNIQUE: Thin section axial CT with sagittal and coronal reconstructions FINDINGS: No fracture is present. Alignment is normal. No bony canal stenosis is seen. Mild degenerative disc disease and endplate spurring is noted throughout the thoracic spine. IMPRESSION: Negative CT evaluation of the thoracic spine for acute bony injury. Authenticated and [facility]
--- NOTE | 2023-12-02 14:03 | CT_ITS ---
FINAL REPORT TECHNIQUE: Thin section axial CT with sagittal reconstruction without contrast CLINICAL HISTORY: fall, neck pain FINDINGS: No fracture is seen. Alignment is normal. No obvious bony spinal canal stenosis is present. Moderate degenerative disc disease is seen mid and lower cervical spine. IMPRESSION: No fracture or malalignment Authenticated and ERN
--- NOTE | 2023-12-02 14:04 | CT_ITS ---
FINAL REPORT CLINICAL HISTORY: fall, pain. Head injury. FINDINGS: Moderate atrophy and advanced chronic ischemic white matter changes are noted. 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 No cortical edema is present. There is no mass or hemorrhage. Ventricles are normal. Bone windows show no skull fracture or obvious obstructive lesion. IMPRESSION: 1. No acute intracranial abnormality or obvious mass. 2. Atrophy and chronic ischemic white matter changes as above. Authenticated and [facility]N
[2023-12-02 15:12] LABS: Basophils # 0.1 K/mm3 (0-0.2); Basophils % 1.1 % (0.1-2.0); Eosinophils # 0.2 K/mm3 (0.0-0.4); Hematocrit 47.2 % (37.0-47.0); Hemoglobin 14.9 g/dL (12.2-16.2); Lymphocytes # 1.3 K/mm3 (0.7-4.5); Lymphocytes % 19.8 % (10-50); Mean Corpuscular HGB Conc 31.5 g/dL (31.8-35.4); Mean Corpuscular Hemoglobin 33.5 pg (27.0-31.2); Mean Corpuscular Volume 106.4 fl (81-99); Mean Platelet Volume 8.5 fl (7.4-10.4); Monocytes # 0.4 K/mm3 (0.1-1.0); Monocytes % 5.5 % (1.7-9.3); Neutrophils # 4.7 K/mm3 (1.8-7.8); Neutrophils % 70.6 % (37.0-80.0); Platelet Count 139 K/mm3 (142-424); Red Blood Count 4.43 M/mm3 (4.20-5.40); Red Cell Distribution Width 13.8 % (11.5-17.5); White Blood Count 6.6 K/mm3 (4.8-10.8)
[2023-12-02] MEDS: ACETAMINOPHEN 1,000MG/100ML VIAL 1000 MG IV (15:14)
[2023-12-02] MEDS: 0.9 % SODIUM CHLORIDE 1000ML 1,000 ML 999 ML IV (15:15)
[2023-12-02 15:17] LABS: Chloride 112 mmol/L (98-107); Potassium 4.2 mmoL/L (3.5-5.1); Sodium 146 mmol/L (136-145)
[2023-12-02 15:19] LABS: Alanine Aminotransferase 18 U/L (12-78); Alkaline Phosphatase 60 U/L (38-126); Anion Gap 7.2 mEq/L (5-15); Aspartate Amino Transferase 32 U/L (14-36); Bilirubin,Total 0.5 mg/dl (0.2-1.3); Blood Urea Nitrogen 33 mg/dl (7-17); Carbon Dioxide 31 mmol/L (22.0-30.0); Creatinine Clearance Estimated 46 mL/min (50-200); Estimated Glomerular Filt Rate 54 ml/min (>60); GFR (African American) 66 ML/MIN (>60)
[2023-12-02 15:20] LABS: Albumin Level 4.1 g/dl (3.5-5.0); Albumin/Globulin Ratio 1.3 (1.1-1.8); Calcium 9.8 mg/dl (8.4-10.2); Creatine Kinase 22 U/L (30-135); Globulin 3.2 g/dL (1.3-3.2); Glucose 87 mg/dl (74-100); Magnesium 1.9 mg/dl (1.6-2.3); Total Protein,Serum 7.3 g/dl (6.3-8.2)
[2023-12-02 16:04] LABS: Microscopic, Urine URINE MICROSCOPIC (MICROSCOPIC)
[2023-12-02 16:07] LABS: Appearance,Urine CLEAR (Clear); Bilirubin,Urine Negative (Negative); Blood, Urine Negative (Negative); Color,Urine YELLOW (Yellow); Glucose,Urine (UA) Negative (Negative); Ketones,Urine Negative (Negative); Leukocyte Esterase,Urine Negative (Negative); Nitrate,Urine Negative (Negative); Protein,Urine Negative (Negative); Specific Gravity, Urine >= 1.030 (1.005-1.030); Urobilinogen,Urine 0.2 EU/dl (0.2)
--- NOTE | 2023-12-02 16:11 | PC.NURSE ---
SIMIN GUTHRIE AT BEDSIDE
[2023-12-02 16:31] LABS: Bacteria,Urine Trace /lpf
== END 2023-12-02 16:15 | disposition home or self-care (01) ==
PROVIDERS: Physician Assistant; Emergency Provider Student in an Organized Health Care Education/Training Program; PCP Nurse Practitioner Family
DX: R51.9 Headache, unspecified (principal); G35 Multiple sclerosis; I11.0 Hypertensive heart disease with heart failure; I50.32 Chronic diastolic (congestive) heart failure; E78.5 Hyperlipidemia, unspecified; J44.9 Chronic obstructive pulmonary disease, unspecified; I27.20 Pulmonary hypertension, unspecified; Z87.891 Personal history of nicotine dependence
CPT/HCPCS: 70450; 72125; 72128; 80053; 81001; 82550; 83735; 85025; 96361; 96374; 99285; J0131

== ENCOUNTER 2023-12-03 11:02 | Emergency (ER) | payer MEDICARE, BC, SELFPAY ==
[2023-12-03] VITALS (11 sets, daily range): BP systolic 139–201; BP diastolic 65–107; PULSE 56–72; RESP 19–20; TEMP 36.7; O2SAT 95–99; BMI 23.7
--- NOTE | 2023-12-03 12:07 | XR_ITS ---
FINAL REPORT CLINICAL HISTORY: Right lower leg pain after a fall FINDINGS: RIGHT TIBIA FIBULA 2 views were obtained. Osteopenia is noted. There is no acute fracture or dislocation. The joint spaces are intact. There is no soft tissue abnormality. IMPRESSION: No acute bony abnormality. Reviewed, Interpreted and Dictated by Jan Duff MD Transcribed by Madelyn Hill Authenticated and [facility]
--- NOTE | 2023-12-03 12:07 | XR_ITS ---
FINAL REPORT CLINICAL HISTORY: Right knee pain and for a fall FINDINGS: RIGHT KNEE 3 views were obtained. There is no acute fracture or dislocation. Osteopenia is noted. There is chondrocalcinosis. The joint spaces are intact. There is no effusion. There is no soft tissue abnormality. IMPRESSION: No acute bony abnormality. Reviewed, Interpreted and Dictated by aJn Duff MD Transcribed by Madelyn Hill Authenticated and [facility]
--- NOTE | 2023-12-03 12:07 | XR_ITS ---
FINAL REPORT CLINICAL HISTORY: Right foot pain after a fall FINDINGS: RIGHT FOOT 3 views of the right foot were obtained. There is no acute fracture or dislocation. There is minimal calcaneal spurring. Visualized joint spaces are normally aligned. Soft tissues are unremarkable. IMPRESSION: No acute bony abnormality. Reviewed, Interpreted and Dictated by Jan Duff MD Transcribed by Madelyn Hill Authenticated and [facility]
--- NOTE | 2023-12-03 12:09 | HMH.EDGENADL ---
Discharge Plan Disposition Patient Disposition: Home, Self-Care Condition: Good Prescriptions Prescriptions: No Action gabapentin 300 mg capsule 300 mg PO TID cetirizine 10 mg tablet 10 mg PO DAILY PRN (Reason: allergies) fluticasone propionate 50 mcg/actuation spray,suspension 1 spray intranasal DAILY bupropion HCl 150 mg tablet extended release 24 hr 150 mg PO DAILY buspirone 5 mg tablet 150 mg PO DAILY atorvastatin 20 MG tablet 20 mg PO HS aspirin 81 MG tablet,delayed release (DR/EC) 81 mg PO DAILY cyanocobalamin (vitamin B-12) 1,000 MCG capsule 1,000 mcg PO DAILY levothyroxine 75 MCG tablet 75 mcg PO DAILY potassium chloride 10 mEq tablet extended release 20 meq PO BID sertraline 100 mg Tablet 100 mg PO DAILY 30 Days Qty: 30 0RF amlodipine 2.5 mg Tablet 2.5 mg PO DAILY 30 Days Qty: 30 0RF Referrals Follow up/Referrals: Stuart Heller DO [Staff Physician] - See instructions Fay Robertson APRN [Primary Care Provider] - See instructions Fracnie Maxwell DPM [Staff Physician] - See instructions Activity Restrictions/Add. Instructions Additional Instructions/Restrictions: You were evaluated in the emergency department today. Please follow-up closely with your primary care provider as well as your neurologist and safety compliance specialist. I also recommend follow-up with podiatry versus orthopedics for reassessment of your foot. Return to the emergency department for new or worsening symptoms. Take Tylenol and ibuprofen at home as needed for foot pain. Rest, ice, and elevate your foot. Clinical Impressions Clinical Impression: Acute pain of right foot, Orthostatic hypotension, Chronic hypernatremia Instructions Patient Instructions: DI for Orthostatic Hypotension, DI for Acute Pain -- Adult, DI for Foot Pain Discharge ED Provider: Janie Lorenzo General Adult HPI General Chief complaint: PAIN Stated complaint: fall 12/01 R foot pain Time Seen by Provider: 12/03/23 11:47 Mode of Arrival: Wheelchair Source of Information: Patient and Relative Limitations: No Limitations Description of Symptoms (Recalled from ER Triage Doc. by RN): pt reports to ED with c/o right leg/foot pain. pt was seen in the ED yesterday for fall and head pain. pt reports she awoke this am with right foot/leg pain. pts daughter concerned also due to pt being dizzy for the past year. History of Present Illness HPI narrative: This patient is a 73-year-old female with a history of MS, hypertension, hyperlipidemia, CHF, NSTEMI, dizziness, orthostatic hypotension, and pulmonary hypertension presenting to the emergency department for evaluation with concern for right foot pain after a fall yesterday. Patient was evaluated here yesterday after a mechanical ground-level fall, and she was not having right lower extremity pain at that time. When she woke up this morning and first put her feet on the floor, she noted significant pain in her right foot/ankle and has had trouble bearing weight. Given this, her daughter brought her back in for evaluation. Daughter also notes that she has had multiple syncopal episodes that occur when going from a seated position to standing. This has been a chronic issue and had improved after changes in medication, but it started happening again about a week ago. She has been seen by neurology and cardiology for this in the past and daughter states that they were not really given good answers. Patient denies any significant headache, vision changes, numbness, tingling that is new, new weakness, or other concerns. She also had no chest pain, shortness of breath, or palpitations. She also has had no abdominal pain or back pain. Related Data Home Medications Medication Instructions Recorded Confirmed aspirin 81 mg tablet,delayed 81 mg PO DAILY 05/09/19 11/27/23 release atorvastatin 20 mg tablet 20 mg PO HS 05/09/19 11/27/23 cyanocobalamin (vitamin B-12) 1,000 mcg PO DAILY 05/09/19 11/27/23 1,000 mcg capsule levothyroxine 75 mcg tablet 75 mcg PO DAILY 09/22/21 11/27/23 gabapentin 300 mg capsule 300 mg PO TID 07/23/23 11/27/23 potassium chloride 10 mEq 20 meq PO BID 08/23/23 11/27/23 tablet,extended release bupropion HCl 150 mg 24 hr tablet, 150 mg PO DAILY 10/23/23 11/27/23 extended release cetirizine 10 mg tablet 10 mg PO DAILY PRN allergies 10/23/23 11/27/23 fluticasone propionate 50 1 spray intranasal DAILY 10/23/23 11/27/23 mcg/actuation nasal spray,suspension buspirone 5 mg tablet 150 mg PO DAILY 11/12/23 11/27/23 Previous Rx's Medication Instructions Recorded amlodipine 2.5 mg tablet 2.5 mg PO DAILY 30 days #30 tabs 08/23/23 sertraline 100 mg tablet 100 mg PO DAILY 30 days #30 tabs 08/23/23 Allergies Allergy/AdvReac Type Severity Reaction Status Date / Time No Known Allergies Allergy Verified 11/12/23 10:54 [facility] Disclaimer: The information contained in this section may have been updated after the patient was seen, as this information can be updated by other users. Medical History Orthostatic hypotension (HFpEF) heart failure with preserved ejection fraction Syncope Depression Hypotension Dizziness COPD (chronic obstructive pulmonary disease) Pulmonary HTN Ex-smoker Sinus bradycardia Abnormal EKG Elevated troponin Dyspnea Atypical angina NSTEMI (non-ST elevated myocardial infarction) Congestive heart failure Surgical History History of thyroidectomy History of cholecystectomy History of hysterectomy Family History Other Family history of CVA Family history of heart disease Social History Smoking Status: Never smoker second hand exposure: No alcohol intake: never current occupational status: disabled Travel in the last 8 weeks: None household members: spouse housing: house current occupational exposures/hazards: No caffeine: No ROS Obtained: Yes All systems reviewed & no additional complaints except as documented Physical Exam General General appearance: alert and in no apparent distress Head Head exam: atraumatic and normocephalic Eye Eye exam: Present normal appearance, PERRL and EOMI ENT ENT exam: Present normal exam, normal oropharynx, mucous membranes moist and normal external ear exam Neck Neck exam: Present normal inspection, full ROM and trachea midline; Absent tenderness Chest Chest inspection: Present normal inspection and symmetric chest wall rise; Absent tenderness Respiratory Respiratory exam: Present normal lung sounds bilaterally; Absent respiratory distress, wheezes, stridor or accessory muscle use Cardiovascular Cardiovascular exam: Present regular rate and normal rhythm Abdominal Exam Abdominal exam: Present soft; Absent distention, tenderness or guarding Extremities Exam Extremities exam: Present full ROM, tenderness (Right heel), normal capillary refill and other (All compartments soft. Neurovascularly intact distally.); Absent edema Back Exam Back exam: Present normal inspection and full ROM; Absent tenderness Neurological Exam Neurological exam: Present alert, oriented X3 and CN II-XII intact; Absent motor sensory deficit Psychiatric Psychiatric exam: Present normal affect and normal mood Skin Skin exam: Present warm and dry Medical Decision Making Medical Records Medical records reviewed: Yes I reviewed the patient's medical records. Emmanuel Inquiry Pt receiving controlled substance: No Vital Signs: 12/03/23 11:04 12/03/23 11:26 12/03/23 12:00 Temperature 98.0 F Temperature Source Oral Pulse Rate 67 59 L Pulse Rate [Left Radial] 66 Pulse Rate [Orthostatic Lying Left] Pulse Rate [Orthostatic Sitting Left] Pulse Rate [Orthostatic Standing Left] Respiratory Rate 19 Blood Pressure 158/79 H 166/75 H Blood Pressure [Orthostatic Lying Left Arm] Blood Pressure [Orthostatic Sitting Left Arm] Blood Pressure [Orthostatic Standing Left Arm] Blood Pressure [Right Arm] 177/69 H Blood Pressure Mean 105 Blood Pressure Mean [Right Arm] 105 02 Sat by Pulse Oximetry 99 98 98 Oxygen Delivery Method Room Air 12/03/23 12:30 12/03/23 12:39 12/03/23 13:01 Temperature Temperature Source Pulse Rate 59 L 66 60 Pulse Rate [Left Radial] Pulse Rate [Orthostatic Lying Left] Pulse Rate [Orthostatic Sitting Left] Pulse Rate [Orthostatic Standing Left] Respiratory Rate Blood Pressure 142/107 H 173/65 H 174/76 H Blood Pressure [Orthostatic Lying Left Arm] Blood Pressure [Orthostatic Sitting Left Arm] Blood Pressure [Orthostatic Standing Left Arm] Blood Pressure [Right Arm] Blood Pressure Mean 115 101 Blood Pressure Mean [Right Arm] 02 Sat by Pulse Oximetry 95 96 99 Oxygen Delivery Method 12/03/23 13:27 12/03/23 13:29 12/03/23 13:31 Temperature Temperature Source Pulse Rate 60 60 Pulse Rate [Left Radial] Pulse Rate [Orthostatic Lying Left] 56 L Pulse Rate [Orthostatic Sitting Left] 61 Pulse Rate [Orthostatic Standing Left] 72 Respiratory Rate Blood Pressure 184/76 H 139/93 H Blood Pressure [Orthostatic Lying Left Arm] 201/71 H Blood Pressure [Orthostatic Sitting Left Arm] 184/76 H Blood Pressure [Orthostatic Standing Left Arm] 139/93 H Blood Pressure [Right Arm] Blood Pressure Mean Blood Pressure Mean [Right Arm] 02 Sat by Pulse Oximetry 97 96 Oxygen Delivery Method 12/03/23 14:01 12/03/23 15:23 Temperature 98.0 F Temperature Source Oral Pulse Rate 68 Pulse Rate [Left Radial] Pulse Rate [Orthostatic Lying Left] Pulse Rate [Orthostatic Sitting Left] Pulse Rate [Orthostatic Standing Left] Respiratory Rate 20 Blood Pressure 186/89 H 188/74 H Blood Pressure [Orthostatic Lying Left Arm] Blood Pressure [Orthostatic Sitting Left Arm] Blood Pressure [Orthostatic Standing Left Arm] Blood Pressure [Right Arm] Blood Pressure Mean 121 Blood Pressure Mean [Right Arm] 02 Sat by Pulse Oximetry Oxygen Delivery Method Room Air Lab Data Lab results reviewed: Yes I reviewed the patient's lab results. Lab Results 12/03/23 11:32: WBC 6.2, RBC 4.33, Hgb 14.2, Hct 45.3, MCV 104.5 H, MCH 32.7 H, MCHC 31.2 L, RDW 13.9, Plt Count 140 L, MPV 8.1, Neut % (Auto) 72.7, Lymph % (Auto) 19.1, [place] % (Auto) 5.5, Eos % (Auto) 2.2, Baso % (Auto) 0.5, Neut # (Auto) 4.5, Lymph # (Auto) 1.2, [place] # (Auto) 0.3, Eos # (Auto) 0.1, Baso # (Auto) 0.0, Sodium 147 H, Potassium 3.7, Chloride 113 H, Carbon Dioxide 28, Anion Gap 9.7, BUN 30 H, Creatinine 1.10 H, Estimated Creat Clear 43, Estimated GFR 49 L, Est GFR ( Amer) 59, Glucose 71 L, Calcium 9.8, Magnesium 1.8, Total Bilirubin 0.4, AST 30, ALT 19, Alkaline Phosphatase 56, Total Protein 6.9, Albumin 4.0, Globulin 2.9, Albumin/Globulin Ratio 1.4, TSH 0.79, Thyroxine (T4) 7.5 12/03/23 14:13: Urine Color Yellow, Urine Appearance Clear, Urine pH 6.0, Ur Specific [place] 1.025, Urine Protein Negative, Urine Glucose (UA) Negative, Urine Ketones Negative, Urine Blood Negative, Urine Nitrate Negative, Urine Bilirubin Negative, Urine Urobilinogen 0.2, Ur Leukocyte Esterase Negative, Urine RBC None, Urine WBC Occasional, Ur Squamous Epith Cells 3-5, Urine Bacteria Trace 12/03/23 11:32 12/03/23 11:32 Orders (Tests/Meds): ED MEDICATIONS Discontinued Medications Generic Name Dose Route Start Last Admin Trade Name Maurisio PRN Reason Stop Dose Admin Acetaminophen 1,000 mg 12/03/23 12:23 12/03/23 12:40 Acetaminophen 500mg Tab PO 12/03/23 12:24 1,000 mg ONCE ONE Administration Lactated Ringer's 1,000 mls @ 999 mls/hr 12/03/23 12:23 12/03/23 12:38 Lactated Ringer's 1000 Ml Bag IV 12/03/23 13:23 999 mls/hr .Q1H1M ONE Administration ORDERS Category Date Time Status Foot XR right minimum 3 views [XR foot RT min 3V] Stat Exams 12/03/23 12:07 Taken Knee XR right 3 views [XR knee RT 3V] Stat Exams 12/03/23 12:07 Completed Tibia/fibula XR right 2 views [XR tibia fibula RT 2V] Exams 12/03/23 12:07 Completed Stat Complete Blood Count Auto Diff Stat Lab 12/03/23 11:32 Completed Comprehensive Metabolic Panel Stat Lab 12/03/23 11:32 Completed MAG [Magnesium] Stat Lab 12/03/23 11:32 Completed T4 (Thyroxine) Stat Lab 12/03/23 11:32 Completed TSH [Thyroid Stimulating Hormone] Stat Lab 12/03/23 11:32 Completed UA [Urinalysis and Microscopic] Stat Lab 12/03/23 14:13 Completed ECG Data Tracing #1: I reviewed this ECG and interpreted as documented below: Sinus bradycardia with a ventricular rate of [address] changes concerning for ischemia. Normal axis and intervals. ECG initial impression date: 12/03/23 ECG initial impression time: 12:23 Medical Decision Narrative: In summary, this patient is a 73-year-old female presenting to the Emergency Department for evaluation of right foot pain after a fall yesterday. Daughter also reports concerns over recurrence of syncopal episodes that used to happen in the past when going from seated to standing. Differential diagnoses considered include but are not limited to fracture, contusion, strain/sprain, orthostatic hypotension. Ruling out the most morbid conditions drove assessment. It should be noted patient's history includes MS, hypertension, hyperlipidemia, CHF which may or may not be at goal therapy. This complicates all aspects of care by increasing patient's risk for morbidity. I reviewed patient's past medical records and noted evaluation yesterday with CT head, CT C-spine, CT T-spine which were reassuring. Labs were also reassuring and the patient was discharged home. She was given Tylenol for pain at that time. On exam, the patient is resting comfortably in bed in no acute distress. She has right heel tenderness but is neurovascularly intact. Vital signs are normal on cardiac telemetry, and cardiopulmonary and abdominal exams are benign. Workup included x-rays of the right knee, tib-fib, ankle, and foot. Given her increase in syncopal episodes, which are chronic, will obtain CBC, CMP, TSH, T4, magnesium, urinalysis, and EKG. Will also obtain orthostatic vital signs. I independently interpreted x-ray prior to the radiologist read and noted no acute fracture. Please see their read for final interpretation. Labs were obtained that demonstrated slightly worsening hyponatremia, which is chronic and gradually changing. No other acutely concerning abnormalities. Patient was given a bolus of IV fluids since she appears slightly dry based on labs and clinical exam. On reassessment, patient is resting comfortably and remains at her baseline. She is able to stand up. She does have slight blood pressure drop when going from lying to standing, however she never becomes hypotensive. Overall, I discussed with the family at length if they would like for the patient to be admitted for placement given that they are having trouble caring for her at home with worsening decline in the setting of her MS and difficulty getting her around at home. They stated that they would like to continue going home with home health. Given this, patient was discharged with instructions for close follow-up with her neurologist, safety compliance specialist, and primary care provider as well as instructions for follow-up with podiatry/orthopedics if she continues to have foot pain. Strict return precautions were given, and she was discharged after all questions were answered. Critical Care Critical Care Time Critical Care Time: No
[2023-12-03 12:15] LABS: Basophils % 0.5 % (0.1-2.0); Eosinophils # 0.1 K/mm3 (0.0-0.4); Eosinophils % 2.2 % (0.1-12.0); Hematocrit 45.3 % (37.0-47.0); Hemoglobin 14.2 g/dL (12.2-16.2); Lymphocytes # 1.2 K/mm3 (0.7-4.5); Lymphocytes % 19.1 % (10-50); Mean Corpuscular HGB Conc 31.2 g/dL (31.8-35.4); Mean Corpuscular Hemoglobin 32.7 pg (27.0-31.2); Mean Corpuscular Volume 104.5 fl (81-99); Mean Platelet Volume 8.1 fl (7.4-10.4); Monocytes # 0.3 K/mm3 (0.1-1.0); Monocytes % 5.5 % (1.7-9.3); Neutrophils # 4.5 K/mm3 (1.8-7.8); Neutrophils % 72.7 % (37.0-80.0); Platelet Count 140 K/mm3 (142-424); Red Blood Count 4.33 M/mm3 (4.20-5.40); Red Cell Distribution Width 13.9 % (11.5-17.5); White Blood Count 6.2 K/mm3 (4.8-10.8)
[2023-12-03 12:16] LABS: Chloride 113 mmol/L (98-107)
[2023-12-03 12:17] LABS: Potassium 3.7 mmoL/L (3.5-5.1); Sodium 147 mmol/L (136-145)
--- NOTE | 2023-12-03 12:17 | ECG_ITS ---
APPROVED REPORT Exam: Resting ECG HR:56 bpm ECG Measurements Heart Rate 56 AXES WY 146 P 67 QRSd 78 QRS 72 QT 415 T 59 QTc 407 Conclusion SINUS BRADYCARDIA BORDERLINE ECG Electronically signed by : YOUSUF COPE, 12/03/2023 16:21:33
[2023-12-03 12:19] LABS: Alanine Aminotransferase 19 U/L (12-78); Aspartate Amino Transferase 30 U/L (14-36); Blood Urea Nitrogen 30 mg/dl (7-17); Creatinine Clearance Estimated 43 mL/min (50-200); Estimated Glomerular Filt Rate 49 ml/min (>60); GFR (African American) 59 ML/MIN (>60)
[2023-12-03 12:20] LABS: Albumin/Globulin Ratio 1.4 (1.1-1.8); Alkaline Phosphatase 56 U/L (38-126); Anion Gap 9.7 mEq/L (5-15); Bilirubin,Total 0.4 mg/dl (0.2-1.3); Calcium 9.8 mg/dl (8.4-10.2); Carbon Dioxide 28 mmol/L (22.0-30.0); Globulin 2.9 g/dL (1.3-3.2); Glucose 71 mg/dl (74-100); Magnesium 1.8 mg/dl (1.6-2.3); Total Protein,Serum 6.9 g/dl (6.3-8.2)
[2023-12-03 12:37] LABS: T4 (Thyroxine) 7.5 ug/dl (5.53-11.0)
[2023-12-03] MEDS: LACTATED RINGERS 1000ML 1,000 ML 999 ML IV (12:38)
[2023-12-03] MEDS: ACETAMINOPHEN 500MG TAB 1000 MG PO (12:40)
[2023-12-03 12:51] LABS: Thyroid Stimulating Hormone 0.79 uIU/mL (0.465-4.68)
--- NOTE | 2023-12-03 13:36 | PC.NURSE ---
called care management at this time. family would like to talk to them.
--- NOTE | 2023-12-03 13:42 | PC.NURSE ---
Carol Ann Taylor at bedside.
--- NOTE | 2023-12-03 14:07 | SW/DCPLANNER ---
Addendum entered by Carol Ann Taylor 12/03/23 14:23: Patient is established w/ [facility] and they have been updated regarding discharge from ED. Original Note: I spoke w/ patient and her daughter regarding plans once medically stable for discharge from ED. Daughter stated that patient was starting w/ home health services today (agency unknown) when she came to ED. Daughter stated that she is needing assistance at home w/ patient. I discussed LTC under private pay vs [place] pending vs private sitters list vs resuming home health services. After a lengthy discussion w/ patient and daughter the plan is to return back home and resume home health services. I will follow up w/ different agencies to figure out which patient is established w/ at this time. Per MD patient will discharge from ED today.
[2023-12-03 14:19] LABS: Microscopic, Urine URINE MICROSCOPIC (MICROSCOPIC)
[2023-12-03 14:29] LABS: Appearance,Urine CLEAR (Clear); Bilirubin,Urine Negative (Negative); Blood, Urine Negative (Negative); Color,Urine YELLOW (Yellow); Glucose,Urine (UA) Negative (Negative); Ketones,Urine Negative (Negative); Leukocyte Esterase,Urine Negative (Negative); Nitrate,Urine Negative (Negative); Protein,Urine Negative (Negative); Specific Gravity, Urine 1.025 (1.005-1.030); Urobilinogen,Urine 0.2 EU/dl (0.2)
[2023-12-03 14:59] LABS: Bacteria,Urine Trace /lpf; WBC,Urine Occasional #/hpf (0-3)
== END 2023-12-03 15:26 | disposition home or self-care (01) ==
PROVIDERS: Emergency Provider Emergency Medicine; PCP Nurse Practitioner Family
DX: I95.1 Orthostatic hypotension (principal); E87.0 Hyperosmolality and hypernatremia; M79.671 Pain in right foot; R00.1 Bradycardia, unspecified; G35 Multiple sclerosis; I11.0 Hypertensive heart disease with heart failure; I50.9 Heart failure, unspecified; E78.5 Hyperlipidemia, unspecified; I27.20 Pulmonary hypertension, unspecified; W18.30XA Fall on same level, unspecified, initial encounter
CPT/HCPCS: 73562; 73590; 73630; 80053; 81001; 83735; 84436; 84443; 85025; 93005; 96360; 99284; J7120

== ENCOUNTER 2023-12-18 14:05 | Outpatient (CLI) | payer MEDICARE, BC, SELFPAY ==
[2023-12-18 14:12] LABS: Microscopic, Urine URINE MICROSCOPIC (MICROSCOPIC)
[2023-12-18 15:01] LABS: Appearance,Urine CLOUDY (Clear); Bilirubin,Urine Negative (Negative); Blood, Urine 2+ (Negative); Color,Urine YELLOW (Yellow); Glucose,Urine (UA) Negative (Negative); Ketones,Urine Negative (Negative); Leukocyte Esterase,Urine 3+ (Negative); Nitrate,Urine POSITIVE (Negative); Protein,Urine TRACE (Negative); Specific Gravity, Urine >= 1.030 (1.005-1.030); Urobilinogen,Urine 0.2 EU/dl (0.2)
[2023-12-18 15:12] LABS: Bacteria,Urine 4+ /lpf; RBC,Urine Occasional #/hpf (0-3); WBC,Urine TNTC #/hpf (0-3)
== END 2023-12-18 23:59 | disposition home or self-care (01) ==
PROVIDERS: PCP Family Medicine Hospice and Palliative Medicine; Visit Provider Family Medicine Hospice and Palliative Medicine
DX: G35 Multiple sclerosis (principal); R30.0 Dysuria; R39.15 Urgency of urination; B96.20 Unspecified Escherichia coli [E. coli] as the cause of diseases classified elsewhere
CPT/HCPCS: 81001; 87086; 87088; 87186

== ENCOUNTER 2024-01-23 14:40 | Outpatient (CLI) | payer OTHER, SELFPAY ==
[2024-01-23 20:31] LABS: Microscopic, Urine URINE MICROSCOPIC (MICROSCOPIC)
[2024-01-23 20:44] LABS: Appearance,Urine CLEAR (Clear); Blood, Urine Negative (Negative); Color,Urine YELLOW (Yellow); Glucose,Urine (UA) Negative (Negative); Ketones,Urine Negative (Negative); Leukocyte Esterase,Urine Negative (Negative); Nitrate,Urine Negative (Negative); PH,Urine 5.5 (5.0-8.5); Protein,Urine Negative (Negative); Specific Gravity, Urine >= 1.030 (1.005-1.030); Urobilinogen,Urine 0.2 EU/dl (0.2)
[2024-01-23 20:55] LABS: Bilirubin,Urine Negative (Negative)
[2024-01-23 21:00] LABS: Bacteria,Urine 4+ /lpf; Calcium Oxalate Crystals,Urine 2+ /lpf; RBC,Urine Occasional #/hpf (0-3)
== END 2024-01-23 23:59 | disposition home or self-care (01) ==
PROVIDERS: PCP Family Medicine Hospice and Palliative Medicine; Visit Provider Family Medicine Hospice and Palliative Medicine
DX: R30.0 Dysuria (principal)
CPT/HCPCS: 81001; 87086; 87088; 87186

== ENCOUNTER 2024-02-17 10:19 | Emergency (ER) | payer OTHER, SELFPAY ==
[2024-02-17] VITALS (7 sets, daily range): BP systolic 132–163; BP diastolic 58–77; PULSE 65–72; RESP 18; TEMP 36.7–37.1; O2SAT 94–97; BMI 28.3
--- NOTE | 2024-02-17 10:20 | PC.NURSE ---
HOSPICE NOTIFIED BY DAUGHTER REGISTERED PHLEBOTOMIST PART TIME
--- NOTE | 2024-02-17 10:28 | PC.NURSE ---
DR KENT AT BEDSIDE
--- NOTE | 2024-02-17 10:32 | XR_ITS ---
FINAL REPORT CLINICAL HISTORY: Fall, right hip COMPARISON: Pelvis dated 09/22/2021 FINDINGS: RIGHT HIP Two views of the right hip with an AP pelvis view demonstrate no acute fracture or dislocation. There are mild degenerative changes. The visualized bony structures are well aligned. No soft tissue abnormality is seen. IMPRESSION: Degenerative changes without acute bony abnormality. If symptoms are persistent or severe, CT or MRI may be helpful. Reviewed, Interpreted and Dictated by Jorge L Coronado III, MD Transcribed by Marichuy Porter Authenticated and . [facility]
--- NOTE | 2024-02-17 10:33 | PC.NURSE ---
PT TO XR
--- NOTE | 2024-02-17 10:34 | PC.NURSE ---
PT PROVIDED DRINK PER REQUEST
--- NOTE | 2024-02-17 10:37 | HMH.EDGENADL ---
Discharge Plan Disposition Patient Disposition: Hospice - Home Prescriptions Prescriptions: No Action gabapentin 300 mg capsule 300 mg PO TID cetirizine 10 mg tablet 10 mg PO DAILY PRN (Reason: allergies) fluticasone propionate 50 mcg/actuation spray,suspension 1 spray intranasal DAILY bupropion HCl 150 mg tablet extended release 24 hr 150 mg PO DAILY buspirone 5 mg tablet 150 mg PO DAILY mirtazapine 7.5 mg tablet 7.5 mg PO DAILY atorvastatin 20 MG tablet 20 mg PO HS aspirin 81 MG tablet,delayed release (DR/EC) 81 mg PO DAILY cyanocobalamin (vitamin B-12) 1,000 MCG capsule 1,000 mcg PO DAILY levothyroxine 75 MCG tablet 75 mcg PO DAILY potassium chloride 10 mEq tablet extended release 20 meq PO BID sertraline 100 mg Tablet 100 mg PO DAILY 30 Days Qty: 30 0RF amlodipine 2.5 mg Tablet 2.5 mg PO DAILY 30 Days Qty: 30 0RF Referrals Follow up/Referrals: Fay Robertson APRN [Primary Care Provider] - See instructions Activity Restrictions/Add. Instructions Additional Instructions/Restrictions: Follow-up with primary care doctor. Follow-up with hospice service. Please return the emerged part with a new, concerning, worsening symptoms. Clinical Impressions Clinical Impression: Fall Print Language Print Language: Azeri Discharge ED Provider: Christoph Sarah General Adult HPI General Chief complaint: PAIN Stated complaint: Fall Time Seen by Provider: 02/17/24 10:22 Mode of Arrival: EMS Source of Information: Patient and EMS Limitations: No Limitations Description of Symptoms (Recalled from ER Triage Doc. by RN): PT TO ED VIA EMS FOR FALL AT HOME. DAUGHTER WAS ASSISTING PT TO BATHROOM WHEN PT'S KNEES BECAME WEAK. PT EASED TO FLOOR BY DAUGHTER. PT C/O RIGHT HIP PAIN WHICH IS CHRONIC History of Present Illness HPI narrative: This is a 73-year-old female with a history of multiple sclerosis on hospice who presents with a fall this morning. Daughter is at bedside to assist in providing history. States that she was helping her go to the bathroom as she normally does whenever her right leg gave out causing her to fall. She did not hit her head or lose consciousness. Daughter is concerned about patient's right hip because this is a light that keeps on giving out on her. Has had a few other falls, last 1 month ago. Patient denies any pain or RICHARD. Related Data Home Medications ?Medication ?Instructions ?Recorded ?Confirmed aspirin 81 mg tablet,delayed 81 mg PO DAILY 05/09/19 12/09/23 release atorvastatin 20 mg tablet 20 mg PO HS 05/09/19 12/09/23 cyanocobalamin (vitamin B-12) 1,000 mcg PO DAILY 05/09/19 12/09/23 1,000 mcg capsule levothyroxine 75 mcg tablet 75 mcg PO DAILY 09/22/21 12/09/23 gabapentin 300 mg capsule 300 mg PO TID 07/23/23 12/09/23 potassium chloride 10 mEq 20 meq PO BID 08/23/23 12/09/23 tablet,extended release bupropion HCl 150 mg 24 hr tablet, 150 mg PO DAILY 10/23/23 12/09/23 extended release cetirizine 10 mg tablet 10 mg PO DAILY PRN allergies 10/23/23 12/09/23 fluticasone propionate 50 1 spray intranasal DAILY 10/23/23 12/09/23 mcg/actuation nasal spray,suspension buspirone 5 mg tablet 150 mg PO DAILY 11/12/23 12/09/23 mirtazapine 7.5 mg tablet 7.5 mg PO DAILY 12/09/23 12/09/23 Previous Rx's ?Medication ?Instructions ?Recorded amlodipine 2.5 mg tablet 2.5 mg PO DAILY 30 days #30 tabs 08/23/23 sertraline 100 mg tablet 100 mg PO DAILY 30 days #30 tabs 08/23/23 Allergies Allergy/AdvReac Type Severity Reaction Status Date / Time No Known Allergies Allergy Verified 12/09/23 10:52 [facility] Disclaimer: The information contained in this section may have been updated after the patient was seen, as this information can be updated by other users. Medical History (Updated 02/17/24 @ 12:50 by Christoph Sarah MD) Abnormal findings on diagnostic imaging of heart and coronary circulation Orthostatic hypotension (HFpEF) heart failure with preserved ejection fraction Syncope Depression Hypotension Dizziness COPD (chronic obstructive pulmonary disease) Pulmonary HTN Ex-smoker Sinus bradycardia Abnormal EKG Elevated troponin Dyspnea Atypical angina NSTEMI (non-ST elevated myocardial infarction) Congestive heart failure Surgical History History of thyroidectomy History of cholecystectomy History of hysterectomy Family History Other Family history of CVA Family history of heart disease Social History Smoking Status: Never smoker second hand exposure: No alcohol intake: never current occupational status: disabled Travel in the last 8 weeks: None household members: spouse housing: house current occupational exposures/hazards: No caffeine: No Other Medical History Have you received the Flu Vaccine for this season: No Have you received the Pneumonia Vaccine: No ROS Obtained: Yes All systems reviewed & no additional complaints except as documented Physical Exam General General appearance: alert and in no apparent distress Eye Eye exam: Present normal appearance, PERRL and EOMI Respiratory Respiratory exam: Present normal lung sounds bilaterally; Absent respiratory distress Cardiovascular Cardiovascular exam: Present regular rate and normal rhythm Abdominal Exam Abdominal exam: Present soft and distention; Absent tenderness, guarding or rebound Extremities Exam Extremities exam: Present normal inspection and full ROM; Absent tenderness Back Exam Back exam: Absent tenderness Neurological Exam Neurological exam: Present alert and oriented X3 Skin Skin exam: Present warm and dry Medical Decision Making Medical Records Medical records reviewed: Yes I reviewed the patient's medical records. Screening: Per USPSTF and CDC recommendations, given the prevalence of disease in our region, it is our hospital?s policy to screen for HIV and viral Hepatitis for all patients aged 18 and over and those with ongoing risk factors. Emmanuel Inquiry Pt receiving controlled substance: No Vital Signs: 02/17/24 10:19 02/17/24 10:30 Temperature 98.0 F Temperature Source Oral Pulse Rate 72 Pulse Rate [Radial] 72 Respiratory Rate 18 Blood Pressure 144/71 H Blood Pressure [Right Arm] 163/77 H Blood Pressure Mean [Right Arm] 105 Blood Pressure Source [Right Arm] Automatic Cuff Blood Pressure Position [Right Arm] Sitting 02 Sat by Pulse Oximetry 95 95 Oxygen Delivery Method Room Air Room Air Orders (Tests/Meds): ORDERS Category Date Time Status Hip XR right minimum 2 views [XR hip RT 2-3V w/pelvis] Exams 02/17/24 10:32 Completed Stat Medical Decision Narrative: In summary, this 73-year-old female with a history of multiple sclerosis on hospice presents to the emergency department today with fall after her legs giving out at home. On initial evaluation patient is afebrile, hemodynamically stable, nontoxic-appearing, with no areas of focal tenderness. No signs of head trauma. Patient and daughter adamantly denied her hitting her head. Differential diagnosis includes but is not limited to long bone fracture, dislocation, weakness secondary to MS. Based on these concerns, I ordered x-ray imaging of the right hip and pelvis. Discussed the utility of CT imaging and laboratory workup with patient and daughter, however they declined given her hospice status and with low clinical suspicion for any other acute traumatic injuries or etiology is of worsening weakness. Most likely secondary to MS. Agreeable to proceed with x-ray imaging. XR personally interpreted demonstrates no acute osseous pathology. Patient appropriate for discharge at this time. No traumatic injuries related to patient's fall. She is to follow-up with hospice service and PCP. Remained stable throughout her stay in the emergency department. Critical Care Critical Care Time Critical Care Time: No
--- NOTE | 2024-02-17 10:50 | PC.NURSE ---
PT RETURNED FROM XR
--- NOTE | 2024-02-17 10:50 | PC.NURSE ---
Pt back in room from x-ray
== END 2024-02-17 13:05 | disposition hospice, home (50) ==
PROVIDERS: Emergency Provider Student in an Organized Health Care Education/Training Program; PCP Nurse Practitioner Family
DX: M25.551 Pain in right hip (principal); W18.39XA Other fall on same level, initial encounter; Z91.81 History of falling; Y93.89 Activity, other specified; Y92.008 Other place in unspecified non-institutional (private) residence as the place of occurrence of the external cause
CPT/HCPCS: 73502; 99283

== ENCOUNTER 2024-03-10 16:33 | Outpatient (CLI) | payer OTHER, SELFPAY ==
[2024-03-10 16:50] LABS: Microscopic, Urine URINE MICROSCOPIC (MICROSCOPIC)
[2024-03-10 17:04] LABS: Appearance,Urine CLEAR (Clear); Bilirubin,Urine Negative (Negative); Blood, Urine Negative (Negative); Color,Urine YELLOW (Yellow); Glucose,Urine (UA) Negative (Negative); Ketones,Urine Negative (Negative); Leukocyte Esterase,Urine Negative (Negative); Nitrate,Urine Negative (Negative); Protein,Urine Negative (Negative); Specific Gravity, Urine 1.015 (1.005-1.030); Urobilinogen,Urine 0.2 EU/dl (0.2)
[2024-03-10 17:59] LABS: Bacteria,Urine 4+ /lpf; Squamous Epithelial Cell,Urine 20-50 #/hpf (0-5)
== END 2024-03-10 23:59 | disposition home or self-care (01) ==
PROVIDERS: PCP Internal Medicine Adolescent Medicine; Visit Provider Family Medicine Hospice and Palliative Medicine
DX: G35 Multiple sclerosis (principal); F41.9 Anxiety disorder, unspecified; F33.1 Major depressive disorder, recurrent, moderate
CPT/HCPCS: 81001; 87086; 87088; 87186